=== PATIENT | female | born 1950 | race Caucasian/White ===

== ENCOUNTER → 2016-12-05 09:39 | Outpatient (CLI) | payer MEDICARE ==
[~2016-12-05 09:39] MED LIST: ACETAMINOPHEN325 MG NG; AMBIEN5 MG PO; BACTRIM DS TABL1 TAB PO; BOUDREAUXS113 GM TOPICAL; BUMEX2 MG PO; CELEXA20 MG PO; CORDARONE200 MG PO; COUMADIN3 MG PO; DEMEROL50 MG PO; IPRAT-ALBUT 0.5-3 ML UPD; K-DUR20 MEQ PO; LASIX20 MG PO; MEGACE40 MG PO; MICONAZOLE NITR28 GM TP; MYLANTA / MAALO30 ML PO; NITRO-BID60 GM TP; NOVOLOG100 U/M1 SQ; PEPCID40 MG PO; PROTONIX40 MG PO; REGLAN5 MG PO; ZOFRAN4 MG PO
== END | disposition home or self-care (01) ==
LOC: D.MRI 09:39
DX: M54.5 Low back pain (principal)

== ENCOUNTER → 2018-07-02 18:24 | Outpatient (CLI) | payer MEDICARE | END | disposition home or self-care (01) | LOC: D.MAMMO 16:00 | DX: Z12.31 Encounter for screening mammogram for malignant neoplasm of breast (principal) ==

== ENCOUNTER 2018-09-29 13:24 | Observation (INO) | payer MEDICARE ==
[~2018-09-29] VITALS: Ht 157.5 cm; Wt 105.2 kg
[2018-09-29 14:11] VITALS: BP 156/62; BMI 42.5
[2018-09-29] MEDS ORDERED: PROTONIX40 MG PO (14:11)
[2018-09-29 15:31] VITALS: BP 148/57
[2018-09-29 16:27] LABS: BASOPHILS 0.1 % (0-2); EOSINOPHILS 0.2 % (0-7); HEMATOCRIT 44.8 % (36.0-48.0); HEMOGLOBIN 14.5 g/dL (12-16); IMMATURE GRANULOCYTES 0.3 % (0-5); MCH 29.3 pg (26.0-34.0); MCHC 32.4 g/dL (31.0-37.0); MCV 90.5 fL (80.0-100.0); MEAN PLATELET VOLUME 10.8 fL (7.4-10.4); MONOCYTES 2.5 % (2-11); NEUTROPHILS 91.9 % (40-80); PLATELET COUNT 188 10x3/uL (130-400); RBC 4.95 10x6/uL (4.00-5.40); RDW 16.7 % (11.5-14.5); WBC 11.1 10x3/uL (4.8-10.8)
[2018-09-29 16:40] LABS: INR 1.67 (0.85-1.17); PROTIME 19.1 SECONDS (11.6-15.0)
[2018-09-29 16:41] LABS: D-DIMER-QUANTITATIVE < 0.27 ug/mLFEU (0.20-0.54)
[2018-09-29 16:50] LABS: ALBUMIN 3.3 g/dL (3.4-5.0); ANION GAP 18.9 mmol/L (8-16); BILIRUBIN - TOTAL 0.53 mg/dL (0.2-1.3); CALCIUM 8.9 mg/dL (8.5-10.1); CARBON DIOXIDE 21.9 mmol/L (21.0-32.0); PROTEIN - SERUM 8.1 g/dL (6.4-8.2)
[2018-09-29 16:51] LABS: POTASSIUM - SERUM 2.8 mmol/L (3.5-5.1)
[2018-09-29 21:34] VITALS: BP 151/80
[2018-09-30 03:48] VITALS: BP 117/51
[2018-09-30 06:27] VITALS: BP 125/63
[2018-09-30 07:10] LABS: BASOPHILS 0.1 % (0-2); EOSINOPHILS 1.1 % (0-7); HEMATOCRIT 40.6 % (36.0-48.0); HEMOGLOBIN 12.8 g/dL (12-16); IMMATURE GRANULOCYTES 0.3 % (0-5); LYMPHOCYTES 3.8 % (15-50); MCH 28.8 pg (26.0-34.0); MCHC 31.5 g/dL (31.0-37.0); MCV 91.2 fL (80.0-100.0); MEAN PLATELET VOLUME 10.4 fL (7.4-10.4); MONOCYTES 9.9 % (2-11); NEUTROPHILS 84.8 % (40-80); PLATELET COUNT 185 10x3/uL (130-400); RBC 4.45 10x6/uL (4.00-5.40); RDW 17.2 % (11.5-14.5)
[2018-09-30 07:11] LABS: WBC 7.5 10x3/uL (4.8-10.8)
[2018-09-30 07:31] LABS: ANION GAP 17.2 mmol/L (8-16); CALCIUM 8.1 mg/dL (8.5-10.1); CARBON DIOXIDE 19.8 mmol/L (21.0-32.0); CREATININE - SERUM 1.1 mg/dL (0.6-1.3)
[2018-09-30 07:38] VITALS: BP 97/45
[2018-09-30] MEDS ORDERED: SYNTHROID25 MCG PO (10:18)
[2018-09-30 11:23] VITALS: BP 111/57
[2018-09-30 12:08] VITALS: Ht 157.5 cm; Wt 105.2 kg
[2018-09-30 15:30] VITALS: BP 147/79
[2018-09-30] MEDS ORDERED: CELEXA20 MG PO (15:44)
[2018-09-30] MEDS ORDERED: K-DUR20 MEQ PO (15:44)
[2018-09-30] MEDS ORDERED: JARDIANCE25 MG PO (15:45)
[2018-09-30 17:29] LABS: APPEARANCE HAZY (CLEAR); COLOR YELLOW (YELLOW); SPECIFIC GRAVITY 1.025 (1.005-1.020)
[2018-09-30 17:30] LABS: BILIRUBIN NEGATIVE (NEGATIVE); GLUCOSE NEGATIVE (NEGATIVE); KETONE NEGATIVE (NEGATIVE); NITRITE NEGATIVE (NEGATIVE); PROTEIN NEGATIVE (NEGATIVE); UROBILINOGEN NORMAL (NORMAL)
[2018-09-30 17:32] LABS: BACTERIA FEW /hpf (NONE SEEN); EPITHELIAL CELLS 0-5 /hpf (0-5); WHITE CELLS - URINE 0-5 /hpf (0-5)
[2018-09-30 17:33] LABS: YEAST <1+ /hpf (NONE SEEN)
[2018-09-30 20:00] VITALS: BP 151/58
[2018-10-01] VITALS: BP 172/69
[2018-10-01 04:00] VITALS: BP 143/80
[2018-10-01 05:27] LABS: BASOPHILS 0.2 % (0-2); EOSINOPHILS 4.7 % (0-7); HEMATOCRIT 41.5 % (36.0-48.0); HEMOGLOBIN 12.7 g/dL (12-16); IMMATURE GRANULOCYTES 0.2 % (0-5); LYMPHOCYTES 17.4 % (15-50); MCH 28.7 pg (26.0-34.0); MCHC 30.6 g/dL (31.0-37.0); MEAN PLATELET VOLUME 10.1 fL (7.4-10.4); MONOCYTES 17.4 % (2-11); NEUTROPHILS 60.1 % (40-80); PLATELET COUNT 149 10x3/uL (130-400); RBC 4.42 10x6/uL (4.00-5.40); RDW 17.5 % (11.5-14.5)
[2018-10-01 05:35] LABS: ANION GAP 15.5 mmol/L (8-16); CALCIUM 8.2 mg/dL (8.5-10.1); CARBON DIOXIDE 18.9 mmol/L (21.0-32.0); CREATININE - SERUM 0.9 mg/dL (0.6-1.3); POTASSIUM - SERUM 3.4 mmol/L (3.5-5.1)
[2018-10-01 05:40] LABS: MCV 93.9 fL (80.0-100.0); WBC 4.7 10x3/uL (4.8-10.8)
[2018-10-01 05:53] LABS: INR 1.52 (0.85-1.17); PROTIME 17.7 SECONDS (11.6-15.0)
[2018-10-01 12:16] VITALS: BP 151/77
[2018-10-01 16:18] VITALS: BP 158/75
[2018-10-01 20:00] VITALS: BP 135/56
[2018-10-02] VITALS: BP 168/82
[2018-10-02 04:00] VITALS: BP 165/73
[2018-10-02 06:16] LABS: BASOPHILS 0.1 % (0-2); EOSINOPHILS 2.3 % (0-7); HEMOGLOBIN 12.1 g/dL (12-16); IMMATURE GRANULOCYTES 0.3 % (0-5); LYMPHOCYTES 9.4 % (15-50); MCH 28.4 pg (26.0-34.0); MONOCYTES 6.5 % (2-11); NEUTROPHILS 81.4 % (40-80); PLATELET COUNT 159 10x3/uL (130-400); RBC 4.26 10x6/uL (4.00-5.40); RDW 17.3 % (11.5-14.5)
[2018-10-02 06:19] LABS: MCV 91.5 fL (80.0-100.0); WBC 7.3 10x3/uL (4.8-10.8)
[2018-10-02 06:24] LABS: ANION GAP 16.4 mmol/L (8-16); CALCIUM 8.1 mg/dL (8.5-10.1); CARBON DIOXIDE 17.1 mmol/L (21.0-32.0); CREATININE - SERUM 0.9 mg/dL (0.6-1.3); POTASSIUM - SERUM 3.5 mmol/L (3.5-5.1)
[2018-10-02 09:17] VITALS: BP 167/77
[2018-10-02] MEDS ORDERED: PROTONIX40 MG PO (11:38)
[2018-10-02] MEDS ORDERED: CARAFATE1 G PO (11:38)
== END 2018-10-02 15:34 | disposition home or self-care (01) ==
LOC: OBSVTIME 13:24 → D.M3 13:24
PROVIDERS: Emergency Medicine; Internal Medicine Gastroenterology; Internal Medicine Nephrology
DX: K31.7 Polyp of stomach and duodenum (principal); D62 Acute posthemorrhagic anemia; E87.6 Hypokalemia; N20.0 Calculus of kidney; I10 Essential (primary) hypertension; E11.9 Type 2 diabetes mellitus without complications; Z86.718 Personal history of other venous thrombosis and embolism; Z85.038 Personal history of other malignant neoplasm of large intestine; Z86.711 Personal history of pulmonary embolism; Z79.01 Long term (current) use of anticoagulants

== ENCOUNTER → 2018-10-27 16:34 | Outpatient (CLI) | payer MEDICARE ==
[2018-09-30 12:08] VITALS: BMI 42.4
[~2018-10-27 16:34] MED LIST changes: +AMOXICILLIN500 M1 PO; +CARAFATE1 G PO; +FLORAJEN3 CAPS460 MG PO; +HYDROCODON-ACE1 EAC7 PO; +JARDIANCE25 MG PO; +LEVAQUIN750 MG PO; +LOPERAMIDE HCL2 MG PO; +NORVASC5 MG PO; +QUESTRAN LIG1 PACKET PO; +REGLAN10 MG PO; +SYNTHROID25 MCG PO
[2018-11-01 16:09] LABS: OVA + PARASITE EXAM Final report (())
== END | disposition home or self-care (01) ==
LOC: D.LABREF 16:34
PROVIDERS: Internal Medicine Gastroenterology
DX: R10.9 Unspecified abdominal pain (principal); R19.7 Diarrhea, unspecified

== ENCOUNTER 2018-10-31 10:54 | Inpatient (IN) | payer MEDICARE ==
[~2018-10-31] VITALS: Ht 157.5 cm; Wt 109.8 kg
[~2018-10-31 10:54] MED LIST changes: -AMOXICILLIN500 M1 PO; -FLORAJEN3 CAPS460 MG PO; -HYDROCODON-ACE1 EAC7 PO; -LEVAQUIN750 MG PO; -LOPERAMIDE HCL2 MG PO; -NORVASC5 MG PO; -QUESTRAN LIG1 PACKET PO; -REGLAN10 MG PO
[2018-10-31 11:44] LABS: BASOPHILS 0.1 % (0-2); EOSINOPHILS 0.1 % (0-7); HEMATOCRIT 43.3 % (36.0-48.0); HEMOGLOBIN 14.3 g/dL (12-16); IMMATURE GRANULOCYTES 0.3 % (0-5); LYMPHOCYTES 5.4 % (15-50); MCH 29.2 pg (26.0-34.0); MCV 88.5 fL (80.0-100.0); MONOCYTES 4.7 % (2-11); NEUTROPHILS 89.4 % (40-80); RBC 4.89 10x6/uL (4.00-5.40); RDW 16.4 % (11.5-14.5)
[2018-10-31 11:47] LABS: PLATELET COUNT 269 10x3/uL (130-400)
[2018-10-31 11:56] LABS: ALBUMIN 3.2 g/dL (3.4-5.0); ALKALINE PHOSPHATASE 87 U/L (46-116); ALT (SGPT) 24 U/L (10-68); AMYLASE - SERUM 37 U/L (25-115); BILIRUBIN - TOTAL 0.68 mg/dL (0.2-1.3); CALCIUM 9.2 mg/dL (8.5-10.1); CARBON DIOXIDE 22.9 mmol/L (21.0-32.0); CHLORIDE - SERUM 98 mmol/L (98-107); CREATININE - SERUM 1.4 mg/dL (0.6-1.3); LIPASE 173 U/L (73-393); PROTEIN - SERUM 8.4 g/dL (6.4-8.2); SODIUM 139 mmol/L (136-145); TROPONIN-I < 0.017 ng/mL (0.000-0.060); UREA NITROGEN 13 mg/dL (7-18); eGFR NON AFRICAN AMERICAN 39 mL/min (90-120)
[2018-10-31 11:58] LABS: CALC OSMOLALITY 283 mosm/kg (275-300); GLUCOSE 207 mg/dL (74-106)
[2018-10-31 12:02] LABS: POTASSIUM - SERUM 2.1 mmol/L (3.5-5.1)
[2018-10-31 13:00] VITALS: BP 124/68
--- NOTE | 2018-10-31 13:12 | NUR ---
S KAEL STOPPED AFTER 700CC PER ARNULFO COMACHO, NS WITH 40MEQ KCL STARTED AT 200 PER HOUR.
[2018-10-31 14:00] VITALS: BP 128/77
--- NOTE | 2018-10-31 14:50 | MORECARE ---
CASE MANAGEMENT DISCHARGE SUMMARY PATIENT: JEANETH JUDGE UNIT: [id number] ADM DATE: 10/31/18 AGE: 68 : 48 SEX: F ROOM/BED: D.E10 AUTHOR: RAJAT MONDRAGON PHYSICIAN: REFERRING PHYSICIAN: MEHRDAD CHATTERJEE MD DATE OF SERVICE: 10/31/18 Discharge Plan Patient Name: JEANETH JUDGE Facility: [facility]:[place] : 1950 Planned Disposition: Home Anticipated Discharge Date: 11/03/18 Discharge Date: Expected LOS: 3 Initial Reviewer: [email or web address] Initial Review Date: 10/31/2018 Generated: 10/31/18 3:50 pm DCPIA - Discharge Planning Initial Assessment Updated by [email or web address]: Becki Dee on 10/31/18 2:49 pm * Is the patient Alert and Oriented? Yes * How many steps to enter\exit or inside your home? None * PCP Dr. Hanson * Pharmacy [facility] * Preadmission Environment Home Alone * ADLs Independent * Equipment Walker * List name and contact numbers for known caregivers / representatives who currently or will assist patient after discharge: Ania Israel - daughter - [phone] Venus Russo - daughter - [phone] * Verbal permission to speak to the caregivers and representatives has been obtained from the patient. Yes * Community resources currently utilized None * Additional services required to return to the preadmission environment? No * Can the patient safely return to the preadmission environment? Yes * Has this patient been hospitalized within the prior 30 days at any hospital? Yes Patient Name: JEANETH JUDGE Page 07288 at 1450 All edits/amendments must be made on the electronic document DICTATION DATE: 10/31/18 145 MANAGER HIV: MAGI 10/31/18 1450 RPT#: [id number] DC DATE: STATUS: ADM IN [facility] [address] [place] [address] END OF REPORT
--- NOTE | 2018-10-31 14:59 | MORECARE ---
CASE MANAGEMENT DISCHARGE SUMMARY PATIENT: JEANETH JUDGE UNIT: [id number] ADM DATE: 10/31/18 AGE: 68 : 48 SEX: F ROOM/BED: D.E10 AUTHOR: ALANNA,DOC PHYSICIAN: REFERRING PHYSICIAN: MEHRDAD CHATTERJEE MD DATE OF SERVICE: 10/31/18 Discharge Plan Patient Name: JEANETH JUDGE Facility: [facility]:[place] : 1950 Planned Disposition: Home Anticipated Discharge Date: 11/03/18 Discharge Date: Expected LOS: 3 Initial Reviewer: [email or web address] Initial Review Date: 10/31/2018 Generated: 10/31/18 3:59 pm DCP- Discharge Planning Updated by [email or web address]: Becki Dee on 10/31/18 1:[address] Patient Name: JEANETH JUDGE Admission Status: ER Accout number: [id number] Admission Date: 10-31-2018 : 1950 Admission Diagnosis: Attending: MEHRDAD CHATTERJEE Current LOS: 1 Anticipated DC Date: 11-03-2018 Planned Disposition: Home Primary Insurance: [employer] CHOICE PPO M[employer] ADVANT Discharge Planning Comments: CM met with patient to complete initial dc planning assessment. CM educated patient on the CM role and verbal consent given by patient to complete assessment. Patient lives at home alone independently. At discharge patient plans to return home and feels this is a safe discharge. She reports she had two daughters that help her as needed. One of her daughters is a nurse. CM discussed availability of home health, rehab services, and medical equipment. Patient denied known discharge needs at this time. CM will continue to follow and will assist as needed with dc plans/needs. Welding Manager: Becki Dee RN, [facility] DCPIA - Discharge Planning Initial Assessment Updated by [email or web address]: Becki Dee on 10/31/18 2:49 pm * Is the patient Alert and Oriented? Yes * How many steps to enter\exit or inside your home? None * PCP Dr. Hanson * Pharmacy [facility] on [address] * Preadmission Environment Home Alone * ADLs Independent * Equipment Walker * List name and contact numbers for known caregivers / representatives who currently or will assist patient after discharge: Ania Israel - daughter - [phone] Venus Russo - daughter - [phone] * Verbal permission to speak to the caregivers and representatives has been obtained from the patient. Yes * Community resources currently utilized None * Additional services required to return to the preadmission environment? No * Can the patient safely return to the preadmission environment? Yes * Has this patient been hospitalized within the prior 30 days at any hospital? Yes Last DP export: 10/31/18 1:50 p Patient Name: JEANETH JUDGE Page 24107 at 1459 All edits/amendments must be made on the electronic document DICTATION DATE: 10/31/181458 TAFFY CANDY MAKER: MAGI 10/31/181458 RPT#: [id number] DC DATE: STATUS: ADM IN [facility] [address] [place] [address] END OF REPORT
[2018-10-31 15:00] VITALS: BP 125/73
[2018-10-31 15:06] LABS: APPEARANCE CLEAR (CLEAR); COLOR YELLOW (YELLOW)
[2018-10-31 15:07] LABS: BILIRUBIN NEGATIVE (NEGATIVE); GLUCOSE 1000 mg/dL (NEGATIVE); KETONE MODERATE mg/dL (NEGATIVE); NITRITE NEGATIVE (NEGATIVE); PROTEIN NEGATIVE (NEGATIVE); UROBILINOGEN NORMAL (NORMAL)
[2018-10-31 15:08] LABS: BACTERIA FEW /hpf (NONE SEEN); EPITHELIAL CELLS 0-5 /hpf (0-5); RED CELLS - URINE 0-5 /hpf (0-5); WHITE CELLS - URINE 0-5 /hpf (0-5); YEAST <1+ /hpf (NONE SEEN)
--- NOTE | 2018-10-31 15:58 | NUR ---
FLAGYL INFUSION COMPLETE AT 0731
[2018-10-31 18:10] VITALS: BP 148/70; BMI 44.4
--- NOTE | 2018-10-31 19:00 | NUR ---
PT IN BED IN LOW FOWLERS POSITION. ALERT AND ORIENTED X4. RESPIRATIONS EVEN AND UNLABORED. VITAL SIGNS STABLE AND AFEBRILE. NO VISUAL CUES OF DISTRESS NOTED. DENIES ANY OTHER NEEDS AT THIS TIME. BED LOW, SIDE RAILS UP X2. CALL LIGHT IN REACH. WILL CONTINUE TO MONITOR.
[2018-10-31 20:00] VITALS: BP 122/41
[2018-10-31 23:58] VITALS: BP 141/61
[2018-11-01 04:00] VITALS: BP 139/56
[2018-11-01 06:26] LABS: BASOPHILS 0.1 % (0-2); IMMATURE GRANULOCYTES 0.1 % (0-5); LYMPHOCYTES 12.5 % (15-50); MCH 28.5 pg (26.0-34.0); MCHC 31.8 g/dL (31.0-37.0); MCV 89.6 fL (80.0-100.0); MEAN PLATELET VOLUME 9.5 fL (7.4-10.4); MONOCYTES 11.2 % (2-11); NEUTROPHILS 75.1 % (40-80)
[2018-11-01 06:29] LABS: HEMATOCRIT 34.3 % (36.0-48.0); HEMOGLOBIN 10.9 g/dL (12-16); PLATELET COUNT 196 10x3/uL (130-400); RBC 3.83 10x6/uL (4.00-5.40); WBC 8.3 10x3/uL (4.8-10.8)
[2018-11-01 06:53] LABS: BILIRUBIN - TOTAL 0.3 mg/dL (0.2-1.3); CALCIUM 7.6 mg/dL (8.5-10.1); CARBON DIOXIDE 22.7 mmol/L (21.0-32.0); MAGNESIUM - SERUM 1.7 mg/dL (1.8-2.4)
[2018-11-01 06:57] LABS: CREATININE - SERUM 0.9 mg/dL (0.6-1.3)
[2018-11-01 06:58] LABS: ALBUMIN 2.2 g/dL (3.4-5.0); POTASSIUM - SERUM 2.7 mmol/L (3.5-5.1); PROTEIN - SERUM 5.9 g/dL (6.4-8.2)
--- NOTE | 2018-11-01 08:24 | NUR ---
PT ALERT X 4. BREATH SOUNDS CLEAR BILAT. PT REPORTING NAUSEA AND ABDOMINAL TENDERNESS. IV TO RIGHT HAND, PATENT, DRESSING CLEAN DRY AND INTACT. +1 EDEMA TO ALL EXTREMITIES. BED LOW, CALL LIGHT IN REACH, NO OTHER NEEDS AT THIS TIME.
[2018-11-01 08:30] VITALS: BP 176/76
[2018-11-01 11:03] VITALS: BMI 44.3
[2018-11-01 12:49] LABS: % SATURATION 13 % (15-55); IRON 32 ug/dl (35-150); TOTAL IRON BIND CAPACITY 238 ug/dl (260-445); UNSAT IRON BIND CAPACITY 206 ug/dl (150-375)
[2018-11-01 15:54] LABS: APPEARANCE HAZY (CLEAR); COLOR YELLOW (YELLOW); SPECIFIC GRAVITY 1.015 (1.005-1.020)
[2018-11-01 15:55] LABS: BILIRUBIN NEGATIVE (NEGATIVE); EPITHELIAL CELLS 0-5 /hpf (0-5); GLUCOSE 100 mg/dL (NEGATIVE); KETONE NEGATIVE (NEGATIVE); NITRITE NEGATIVE (NEGATIVE); PROTEIN TRACE mg/dL (NEGATIVE); RED CELLS - URINE 0-5 /hpf (0-5); UROBILINOGEN NORMAL (NORMAL); WHITE CELLS - URINE 0-5 /hpf (0-5)
--- NOTE | 2018-11-01 19:00 | NUR ---
PT IN BED IN LOW FOWLERS POSITION. ALERT AND ORIENTED X 4. RESPIRATIONS EVEN AND UNLABORED. RESPIRATIONS EVEN AND UNLABORED. NO VISUAL CUES OF DISTRESS NOTED. DENIES ANY OTHER NEEDS AT THIS TIME. BED LOW, SIDE RAILS UP X2 CALL LIGHT IN REACH. WILL CONTINUE TO MONITOR.
[2018-11-01 20:00] VITALS: BP 154/63
[2018-11-02] VITALS: BP 138/51
[2018-11-02 04:00] VITALS: BP 141/54; BP 178/77
--- NOTE | 2018-11-02 08:02 | NUR ---
PT ALERT X 4. BREATH SOUNDS CLEAR BILAT. PAIN OF 10/10, MEDICATED PER ORDERS, WILL MONITOR. +1 EDEMA TO BLE AND RIGHT HAND. IV TO RIGHT HAND, SALINE LOCKED. IV TO LEFT FOREARM, PATENT, DRESSING CLEAN DRY AND INTACT. BED LOW, CALL LIGHT IN REACH, NO OTHER NEEDS AT THIS TIME.
[2018-11-02 08:56] VITALS: BP 174/72
[2018-11-02 09:18] LABS: BASOPHILS 0.2 % (0-2); EOSINOPHILS 3.1 % (0-7); IMMATURE GRANULOCYTES 0.3 % (0-5); LYMPHOCYTES 13.4 % (15-50); MCH 28.6 pg (26.0-34.0); MCHC 31.4 g/dL (31.0-37.0); MCV 91.1 fL (80.0-100.0); MEAN PLATELET VOLUME 9.2 fL (7.4-10.4); MONOCYTES 8.5 % (2-11); NEUTROPHILS 74.5 % (40-80); PLATELET COUNT 200 10x3/uL (130-400); RBC 3.84 10x6/uL (4.00-5.40); RDW 17.4 % (11.5-14.5); WBC 6.5 10x3/uL (4.8-10.8)
[2018-11-02 09:40] LABS: ALBUMIN 2.3 g/dL (3.4-5.0); ALKALINE PHOSPHATASE 61 U/L (46-116); ALT (SGPT) 20 U/L (10-68); BILIRUBIN - TOTAL 0.25 mg/dL (0.2-1.3); CALC OSMOLALITY 283 mosm/kg (275-300); CALCIUM 7.9 mg/dL (8.5-10.1); CARBON DIOXIDE 22.6 mmol/L (21.0-32.0); CHLORIDE - SERUM 109 mmol/L (98-107); CREATININE - SERUM 0.7 mg/dL (0.6-1.3); GLUCOSE 133 mg/dL (74-106); POTASSIUM - SERUM 3.3 mmol/L (3.5-5.1); PROTEIN - SERUM 6.3 g/dL (6.4-8.2); SODIUM 143 mmol/L (136-145); UREA NITROGEN 5 mg/dL (7-18); eGFR NON AFRICAN AMERICAN 88 mL/min (90-120)
[2018-11-02 10:45] LABS: INR 4.93 (0.85-1.17)
[2018-11-02 20:46] VITALS: BP 158/58
[2018-11-03] VITALS: BP 127/64; BP 165/80
[2018-11-03 04:59] LABS: BASOPHILS 0.4 % (0-2); EOSINOPHILS 5.4 % (0-7); IMMATURE GRANULOCYTES 0.2 % (0-5); MCH 28.8 pg (26.0-34.0); MCHC 31.4 g/dL (31.0-37.0); MCV 91.6 fL (80.0-100.0); MEAN PLATELET VOLUME 9.5 fL (7.4-10.4); MONOCYTES 7.7 % (2-11); NEUTROPHILS 66.3 % (40-80); PLATELET COUNT 206 10x3/uL (130-400); RBC 3.82 10x6/uL (4.00-5.40); RDW 17.5 % (11.5-14.5); WBC 5.6 10x3/uL (4.8-10.8)
[2018-11-03 05:08] LABS: INR 4.47 (0.85-1.17); PROTIME 41.7 SECONDS (11.6-15.0)
[2018-11-03 05:10] LABS: ALBUMIN 2.3 g/dL (3.4-5.0); ALKALINE PHOSPHATASE 59 U/L (46-116); ALT (SGPT) 21 U/L (10-68); BILIRUBIN - TOTAL 0.28 mg/dL (0.2-1.3); CALC OSMOLALITY 280 mosm/kg (275-300); CARBON DIOXIDE 23.5 mmol/L (21.0-32.0); CHLORIDE - SERUM 109 mmol/L (98-107); CREATININE - SERUM 0.7 mg/dL (0.6-1.3); GLUCOSE 114 mg/dL (74-106); POTASSIUM - SERUM 3.5 mmol/L (3.5-5.1); PROTEIN - SERUM 6.3 g/dL (6.4-8.2); SODIUM 142 mmol/L (136-145); eGFR NON AFRICAN AMERICAN 88 mL/min (90-120)
[2018-11-03 05:19] LABS: MAGNESIUM - SERUM 1.9 mg/dL (1.8-2.4); UREA NITROGEN 3 mg/dL (7-18)
--- NOTE | 2018-11-03 07:15 | NUR ---
MORNING ASSESSMENT COMPLETE. SEE ASSESSMENT FLOWSHEET FOR FURTHER DETAILS. PT LYING IN BED AAO X3 TO PERSON, PLACE, AND TIME. STATES PAIN 5 (0-10)- WILL GIVE PAIN MED. BLE EDEMA NOTED. DENIES NEEDS AT THIS TIME. CL IN REACH.
[2018-11-03 08:30] VITALS: BP 162/82
[2018-11-03 11:52] VITALS: BP 167/70
--- NOTE | 2018-11-03 14:22 | NUR ---
RESITED PIV TO L HAND. PT TOLERATED WELL. SITE C/D/I; PATENT
[2018-11-03 16:29] VITALS: BP 167/87
--- NOTE | 2018-11-03 19:30 | NUR ---
Alert and orented able to voice needs and wants to staff. IV to left hand , no needs at this time, call light in reach.
[2018-11-03 20:00] VITALS: BP 164/67
--- NOTE | 2018-11-04 02:03 | NUR ---
UA collected via in out cath per protocol and sent to lab,
[2018-11-04 04:00] VITALS: BP 173/82
[2018-11-04 05:38] LABS: BASOPHILS 0.3 % (0-2); EOSINOPHILS 3.9 % (0-7); HEMATOCRIT 35.9 % (36.0-48.0); HEMOGLOBIN 11.4 g/dL (12-16); IMMATURE GRANULOCYTES 0.2 % (0-5); LYMPHOCYTES 18.5 % (15-50); MCH 28.8 pg (26.0-34.0); MCHC 31.8 g/dL (31.0-37.0); MCV 90.7 fL (80.0-100.0); MEAN PLATELET VOLUME 9.6 fL (7.4-10.4); MONOCYTES 7.8 % (2-11); NEUTROPHILS 69.3 % (40-80); RBC 3.96 10x6/uL (4.00-5.40); RDW 17.4 % (11.5-14.5); WBC 5.9 10x3/uL (4.8-10.8)
[2018-11-04 06:03] LABS: PLATELET COUNT 158 10x3/uL (130-400)
[2018-11-04 06:05] LABS: PROTIME 31.6 SECONDS (11.6-15.0)
[2018-11-04 06:06] LABS: ALBUMIN 2.3 g/dL (3.4-5.0); ALKALINE PHOSPHATASE 58 U/L (46-116); ALT (SGPT) 19 U/L (10-68); BILIRUBIN - TOTAL 0.28 mg/dL (0.2-1.3); CALC OSMOLALITY 280 mosm/kg (275-300); CALCIUM 8.2 mg/dL (8.5-10.1); CARBON DIOXIDE 22.7 mmol/L (21.0-32.0); CHLORIDE - SERUM 109 mmol/L (98-107); CREATININE - SERUM 0.6 mg/dL (0.6-1.3); GLUCOSE 101 mg/dL (74-106); INR 3.15 (0.85-1.17); POTASSIUM - SERUM 3.8 mmol/L (3.5-5.1); PROTEIN - SERUM 6.4 g/dL (6.4-8.2); SODIUM 143 mmol/L (136-145); eGFR NON AFRICAN AMERICAN > 90 mL/min (90-120)
[2018-11-04 06:08] LABS: UREA NITROGEN 2 mg/dL (7-18)
--- NOTE | 2018-11-04 07:15 | NUR ---
MORNING ASSESSMENT COMPLETE. SEE ASSESSMENT FLOWSHEET FOR FURTHER DETAILS. PT LYING IN BED AAO X3 TO PERSON, PLACE, AND TIME. GOING FOR OCTREOSCAN TODAY. BOWEL PREP WITH DULCOLAX LAST NIGHT. BLE EDEMA NOTED +2, L HAND PIV C/D/I; PATENT. PT DENIES PAIN AT THIS MOMENT. NO SIGNS OF DISTRESS NOTED. CL IN REACH.
[2018-11-04 08:16] LABS: FOLATE (FOLIC ACID) - SERUM >20.0 ng/mL (>3.0)
[2018-11-04 08:45] VITALS: BP 189/90
--- NOTE | 2018-11-04 10:57 | NUR ---
NUTRITION F//U PT REMAINS ON CLEAR LIQUID DIET. PROCALAMINE @ 30 CC/HR PROVIDING 176 KCAL, 22 GM PROTEIN PER DAY. PT MAY BENEFIT FROM INCREASED PROCALAMINE RATE FOR ADDITIONAL KCAL/PROTEIN. RD FOLLOWING
[2018-11-04 12:49] VITALS: BP 195/90
[2018-11-04 16:16] VITALS: BP 174/92
[2018-11-04 20:00] VITALS: BP 172/84
[2018-11-05] VITALS: BP 158/84
[2018-11-05 04:00] VITALS: BP 168/84
[2018-11-05 07:23] LABS: BASOPHILS 0.2 % (0-2); EOSINOPHILS 4.7 % (0-7); HEMATOCRIT 35.9 % (36.0-48.0); HEMOGLOBIN 11.3 g/dL (12-16); IMMATURE GRANULOCYTES 0.2 % (0-5); LYMPHOCYTES 13.9 % (15-50); MCH 28.5 pg (26.0-34.0); MCHC 31.5 g/dL (31.0-37.0); MCV 90.4 fL (80.0-100.0); MEAN PLATELET VOLUME 9.1 fL (7.4-10.4); MONOCYTES 9.8 % (2-11); NEUTROPHILS 71.2 % (40-80); RBC 3.97 10x6/uL (4.00-5.40); RDW 17.1 % (11.5-14.5); WBC 5.7 10x3/uL (4.8-10.8)
[2018-11-05 07:33] LABS: INR 2.52 (0.85-1.17); PROTIME 26.4 SECONDS (11.6-15.0)
[2018-11-05 07:40] LABS: ALBUMIN 2.3 g/dL (3.4-5.0); ALKALINE PHOSPHATASE 56 U/L (46-116); ALT (SGPT) 25 U/L (10-68); BILIRUBIN - TOTAL 0.32 mg/dL (0.2-1.3); CALC OSMOLALITY 282 mosm/kg (275-300); CALCIUM 7.9 mg/dL (8.5-10.1); CARBON DIOXIDE 27.9 mmol/L (21.0-32.0); CHLORIDE - SERUM 106 mmol/L (98-107); CREATININE - SERUM 0.7 mg/dL (0.6-1.3); GLUCOSE 123 mg/dL (74-106); POTASSIUM - SERUM 3.3 mmol/L (3.5-5.1); PROTEIN - SERUM 6.1 g/dL (6.4-8.2); SODIUM 143 mmol/L (136-145); UREA NITROGEN 3 mg/dL (7-18); eGFR NON AFRICAN AMERICAN 88 mL/min (90-120)
[2018-11-05 07:59] LABS: PLATELET COUNT 190 10x3/uL (130-400)
[2018-11-05 10:04] VITALS: BP 198/89
[2018-11-05 17:34] VITALS: BP 195/90
[2018-11-05 20:54] VITALS: BP 150/66
--- NOTE | 2018-11-06 00:01 | NUR ---
PT REPORTS BURNING AT IV SITE. NO REDNESS OR SWELLING NOTED, IMMEDIATE BLOOD RETURN AND FLUSHES WITHOUT ISSUE OR COMPLAINTS. PROCAL AND KCL DECREASED TO 20. PT STILL COMPLAINS OF PAIN AT SITE. SUGGESTED ANOTHER IV SITE FOR FLUIDS, PT REFUSED. STATES SHE ONLY WANTS ZOFRAN DRIP FOR NOW. WILL MISTI TO MONITOR.
[2018-11-06 00:59] VITALS: BP 143/62
--- NOTE | 2018-11-06 02:47 | NUR ---
PT LYING IN BED RESTING, NO SIGNS OF DISTRESS. CONCUR W/ SKATING RINK MANAGER ASSESSMENT. PT DENIES NEEDS. CL IN REACH
[2018-11-06 07:18] LABS: BASOPHILS 0.4 % (0-2); EOSINOPHILS 8.2 % (0-7); HEMOGLOBIN 12.6 g/dL (12-16); IMMATURE GRANULOCYTES 0.2 % (0-5); LYMPHOCYTES 21.8 % (15-50); MCH 28.9 pg (26.0-34.0); MCHC 31.5 g/dL (31.0-37.0); MCV 91.7 fL (80.0-100.0); MEAN PLATELET VOLUME 9.7 fL (7.4-10.4); MONOCYTES 9.1 % (2-11); NEUTROPHILS 60.3 % (40-80); PLATELET COUNT 202 10x3/uL (130-400); RBC 4.36 10x6/uL (4.00-5.40); RDW 17.2 % (11.5-14.5); WBC 5.7 10x3/uL (4.8-10.8)
--- NOTE | 2018-11-06 08:19 | NUR ---
SEWING MACHINE OPERATOR ZIPPER NOTE-PT UP IN BATHROOM AT PRESENT. STATES HAVING PAIN AND WANTS PAIN MED BUT IT IS NOT TIME. ZOFRAN RUNNING AT PRESENT BUT WILL NOT ALLOW HER MAINTANCE FLUIDS AND PROCALAMINE TO RUN. WILL NEED TO MOVE IV SITE. WILL CONTINUE TO MONITOR
[2018-11-06 08:49] VITALS: BP 198/81
[2018-11-06 10:41] LABS: ALKALINE PHOSPHATASE 67 U/L (46-116); ALT (SGPT) 30 U/L (10-68); CALC OSMOLALITY 283 mosm/kg (275-300); CALCIUM 8.2 mg/dL (8.5-10.1); CARBON DIOXIDE 28.6 mmol/L (21.0-32.0); CHLORIDE - SERUM 105 mmol/L (98-107); CREATININE - SERUM 0.7 mg/dL (0.6-1.3); GLUCOSE 95 mg/dL (74-106); SODIUM 144 mmol/L (136-145); UREA NITROGEN 4 mg/dL (7-18); eGFR NON AFRICAN AMERICAN 88 mL/min (90-120)
[2018-11-06 10:42] LABS: ALBUMIN 2.6 g/dL (3.4-5.0); PROTEIN - SERUM 6.5 g/dL (6.4-8.2)
[2018-11-06 15:58] VITALS: BP 155/74
[2018-11-06 18:35] VITALS: BP 159/81
[2018-11-06 19:10] LABS: OVA + PARASITE EXAM Final report (())
--- NOTE | 2018-11-06 22:40 | NUR ---
ENTER ROOM IN RESPONSE TO CL. PT STATES SHE JUST HAD AN EPISODE OF DIARRHEA IN HER SLEEP. STATES SHE ALREADY GOT RID OF THE TOP SHEET THAT WAS COVERED. ASSISTED PT WITH CLEANING UP AND GETTING CHANGED. SMALL AMOUNT OF BM LEAKED ON BEDDING. LINEN CHANGED. PT STATES THIS HAS NEVER HAD PROBLEMS WITH INCONTINENCE OF BOWELS, AND THAT SHE HAD, "HAD A LITTLE BIT OF DIARRHEA," EARLIER, BUT NOT NEAR THE AMOUNT THIS. PT DESCRIBES IT AT RUNNY WITH RED IN IT. INFORMED PT TO NOTIFY ME BEFORE IT IS THROWN AWAY NEXT TIME. VITAL SIGNS ARE ALL STILL STABLE, PT REPORTS ABDOMINAL PAIN.
[2018-11-07 00:03] VITALS: BP 150/69
--- NOTE | 2018-11-07 03:29 | NUR ---
RESTING IN BED RESP UNLABORED NO APPARENT DISTRESS CALL LIGHT IN REACH
[2018-11-07 07:50] LABS: ALBUMIN 2.3 g/dL (3.4-5.0); ALKALINE PHOSPHATASE 56 U/L (46-116); ALT (SGPT) 26 U/L (10-68); BILIRUBIN - TOTAL 0.42 mg/dL (0.2-1.3); CALCIUM 8.2 mg/dL (8.5-10.1); CARBON DIOXIDE 30.1 mmol/L (21.0-32.0); CHLORIDE - SERUM 104 mmol/L (98-107); CREATININE - SERUM 0.7 mg/dL (0.6-1.3); GLUCOSE 130 mg/dL (74-106); POTASSIUM - SERUM 3.4 mmol/L (3.5-5.1); PROTEIN - SERUM 6.1 g/dL (6.4-8.2); SODIUM 141 mmol/L (136-145); eGFR NON AFRICAN AMERICAN 88 mL/min (90-120)
[2018-11-07 07:51] LABS: BASOPHILS 0.2 % (0-2); EOSINOPHILS 7.7 % (0-7); HEMATOCRIT 35.7 % (36.0-48.0); IMMATURE GRANULOCYTES 0.3 % (0-5); LYMPHOCYTES 13.3 % (15-50); MCH 28.4 pg (26.0-34.0); MCHC 30.8 g/dL (31.0-37.0); MCV 92.2 fL (80.0-100.0); MEAN PLATELET VOLUME 9.8 fL (7.4-10.4); MONOCYTES 10.4 % (2-11); NEUTROPHILS 68.1 % (40-80); PLATELET COUNT 186 10x3/uL (130-400); RBC 3.87 10x6/uL (4.00-5.40); RDW 17.2 % (11.5-14.5); WBC 6.3 10x3/uL (4.8-10.8)
[2018-11-07 08:07] LABS: INR 1.65 (0.85-1.17); PROTIME 18.9 SECONDS (11.6-15.0)
[2018-11-07 08:14] LABS: CALC OSMOLALITY 280 mosm/kg (275-300); UREA NITROGEN 6 mg/dL (7-18)
[2018-11-07 08:37] VITALS: BP 181/82
[2018-11-07 10:21] LABS: 5HIAA - 24HR 2.2 mg/24 hr (0.0-14.9); 5HIAA - UR 2.8 mg/L (Undefined)
[2018-11-07 10:44] VITALS: Ht 157.5 cm; Wt 109.8 kg
--- NOTE | 2018-11-07 11:29 | NUR ---
Rehab Note- Acute Inpatient Rehab prescreen order received. The patient has [employer] insurance and would require a PreAuth. She has been signed off by PT and has a pending OT Eval. [employer] will deny the patient an inpatient acute rehab stay due to being too functional with PT. Thank you for this referral! Pippa Rahman RN Clincial Liaison, [facility] Rehab
[2018-11-07 12:27] VITALS: BP 170/80
[2018-11-07 16:32] VITALS: BP 141/55
[2018-11-07 20:00] VITALS: BP 155/67
[2018-11-08] VITALS: BP 171/63
[2018-11-08 04:00] VITALS: BP 165/55
[2018-11-08 05:31] LABS: BASOPHILS 0.2 % (0-2); EOSINOPHILS 6.2 % (0-7); HEMATOCRIT 36.3 % (36.0-48.0); HEMOGLOBIN 11.1 g/dL (12-16); IMMATURE GRANULOCYTES 0.2 % (0-5); LYMPHOCYTES 19.2 % (15-50); MCHC 30.6 g/dL (31.0-37.0); MCV 91.4 fL (80.0-100.0); MEAN PLATELET VOLUME 9.5 fL (7.4-10.4); MONOCYTES 11.5 % (2-11); NEUTROPHILS 62.7 % (40-80); PLATELET COUNT 195 10x3/uL (130-400); RBC 3.97 10x6/uL (4.00-5.40); RDW 17.2 % (11.5-14.5); WBC 5.5 10x3/uL (4.8-10.8)
[2018-11-08 05:53] LABS: ALBUMIN 2.4 g/dL (3.4-5.0); ALKALINE PHOSPHATASE 56 U/L (46-116); ALT (SGPT) 26 U/L (10-68); BILIRUBIN - TOTAL 0.47 mg/dL (0.2-1.3); CALC OSMOLALITY 278 mosm/kg (275-300); CALCIUM 8.3 mg/dL (8.5-10.1); CHLORIDE - SERUM 106 mmol/L (98-107); CREATININE - SERUM 0.7 mg/dL (0.6-1.3); GLUCOSE 94 mg/dL (74-106); POTASSIUM - SERUM 3.6 mmol/L (3.5-5.1); PROTEIN - SERUM 6.1 g/dL (6.4-8.2); SODIUM 141 mmol/L (136-145); UREA NITROGEN 6 mg/dL (7-18); eGFR NON AFRICAN AMERICAN 88 mL/min (90-120)
--- NOTE | 2018-11-08 05:53 | NUR ---
PT IN BED IN LOW FOWLERS POSITION RESTING QUIETLY WITH EYES CLOSED. ALERT AND ORIENTED X4. VITAL SIGNS STABLE AND AFEBRILE. NO VISUAL CUES OF DISTRESS NOTED. DENIES ANY OTHER NEEDS AT THIS TIME. BED LOW, SIDE RAILS UP X2. CALL LIGHT IN REACH WILL CONTINUE TO MONITOR.
[2018-11-08 06:11] LABS: INR 1.34 (0.85-1.17)
--- NOTE | 2018-11-08 07:15 | NUR ---
MORNING ASSESSMENT COMPLETE. SEE ASSESSMENT FLOWSHEET FOR FURTHER DETAILS. PT LYING IN BED AAO X4 TO PERSON, PLACE, TIME AND SITUATION. GOING IN FOR GASTRIC EMPTYING TEST TODAY. R SHOULDER PIV- C/D/I AND PATENT. DENIES NEEDS AT THIS TIME. CL IN REACH.
[2018-11-08 08:05] VITALS: BP 181/89
[2018-11-08 16:00] VITALS: BP 131/67
--- NOTE | 2018-11-08 19:35 | NUR ---
PATIENT RESTING IN BED AND REQUESTED PAIN MEDS FOR 10/10 PAIN. NO S/S OF DISTRESS. WILL ADMINISTER MEDS AND CONTINUE TO MONITOR.
[2018-11-08 20:41] VITALS: BP 146/98
[2018-11-09 00:40] VITALS: BP 137/89
--- NOTE | 2018-11-09 01:52 | NUR ---
PATIENT RESTING IN BED WITH EYES CLOSED AND NO S/S OF DISTRESS. WILL CONTINUE TO MONITOR.
[2018-11-09 05:01] VITALS: BP 136/46
[2018-11-09 05:28] LABS: BASOPHILS 0.2 % (0-2); EOSINOPHILS 6.2 % (0-7); HEMATOCRIT 36.9 % (36.0-48.0); HEMOGLOBIN 11.5 g/dL (12-16); IMMATURE GRANULOCYTES 0.2 % (0-5); LYMPHOCYTES 19.4 % (15-50); MCH 28.5 pg (26.0-34.0); MCHC 31.2 g/dL (31.0-37.0); MCV 91.6 fL (80.0-100.0); MEAN PLATELET VOLUME 9.5 fL (7.4-10.4); MONOCYTES 11.1 % (2-11); NEUTROPHILS 62.9 % (40-80); PLATELET COUNT 175 10x3/uL (130-400); RBC 4.03 10x6/uL (4.00-5.40); RDW 17.3 % (11.5-14.5); WBC 5.3 10x3/uL (4.8-10.8)
[2018-11-09 05:42] LABS: ALBUMIN 2.4 g/dL (3.4-5.0); ALKALINE PHOSPHATASE 57 U/L (46-116); ALT (SGPT) 31 U/L (10-68); BILIRUBIN - TOTAL 0.47 mg/dL (0.2-1.3); CALC OSMOLALITY 278 mosm/kg (275-300); CALCIUM 8.1 mg/dL (8.5-10.1); CARBON DIOXIDE 30.5 mmol/L (21.0-32.0); CHLORIDE - SERUM 104 mmol/L (98-107); CREATININE - SERUM 0.7 mg/dL (0.6-1.3); GLUCOSE 98 mg/dL (74-106); POTASSIUM - SERUM 3.8 mmol/L (3.5-5.1); PROTEIN - SERUM 6.3 g/dL (6.4-8.2); SODIUM 141 mmol/L (136-145); UREA NITROGEN 6 mg/dL (7-18); eGFR NON AFRICAN AMERICAN 88 mL/min (90-120)
--- NOTE | 2018-11-09 07:15 | NUR ---
MORNING ASSESSMENT COMPLETE. SEE ASSESSMENT FLOWSHEET FOR FURTHER DETAILS. PT LYING IN BED AAO X4 TO PERSON, PLACE, TIME AND SITUATION. ABD PAIN NOTED- ON ZOFRAN AND DILAUDID. DENIES FURTHER NEEDS AT THIS TIME. CL IN REACH.
[2018-11-09 08:46] VITALS: BP 149/72
[2018-11-09] MEDS ORDERED: LEVAQUIN750 MG PO (13:52)
[2018-11-09] MEDS ORDERED: NORVASC5 MG PO (13:52)
[2018-11-09] MEDS ORDERED: AMOXICILLIN500 M1 PO (13:52)
[2018-11-09] MEDS ORDERED: QUESTRAN LIG1 PACKET PO (13:52)
[2018-11-09] MEDS ORDERED: FLORAJEN3 CAPS460 MG PO (13:53)
[2018-11-09] MEDS ORDERED: HYDROCODON-ACE1 EAC7 PO (13:54)
[2018-11-09] MEDS ORDERED: REGLAN10 MG PO (13:54)
[2018-11-09] MEDS ORDERED: LOPERAMIDE HCL2 MG PO (13:54)
[2018-11-09 16:00] VITALS: BP 144/49
--- NOTE | 2018-11-11 12:23 | MORECARE ---
CASE MANAGEMENT DISCHARGE SUMMARY PATIENT: JEANETH JUDGE UNIT: [id number] ADM DATE: 10/31/18 AGE: 68 : 48 SEX: F ROOM/BED: D.2202 AUTHOR: ALANNA,DOC PHYSICIAN: REFERRING PHYSICIAN: MEHRDAD CHATTERJEE MD DATE OF SERVICE: 11/11/18 Discharge Plan Patient Name: JEANETH JUDGE Facility: [facility]:[place] : 1950 Planned Disposition: Home Anticipated Discharge Date: 11/03/18 Discharge Date: 11/09/2018 Expected LOS: 3 Initial Reviewer: [email or web address] Initial Review Date: 10/31/2018 Generated: 11/11/18 1:23 pm DCP- Discharge Planning Updated by [email or web address]: Becki Dee on 10/31/18 1:[address] Patient Name: JEANETH JUDGE Admission Status: ER Accout number: [id number] Admission Date: 10-31-2018 : 1950 Admission Diagnosis: Attending: MEHRDAD CHATTERJEE Current LOS: 1 Anticipated DC Date: 11-03-2018 Planned Disposition: Home Primary Insurance: [employer] CHOICE PPO MCR ADVANT Discharge Planning Comments: CM met with patient to complete initial dc planning assessment. CM educated patient on the CM role and verbal consent given by patient to complete assessment. Patient lives at home alone independently. At discharge patient plans to return home and feels this is a safe discharge. She reports she had two daughters that help her as needed. One of her daughters is a nurse. CM discussed availability of home health, rehab services, and medical equipment. Patient denied known discharge needs at this time. CM will continue to follow and will assist as needed with dc plans/needs. Court Reporter: Becki Dee RN, [facility] DCPIA - Discharge Planning Initial Assessment Updated by [email or web address]: Becki Dee on 10/31/18 2:49 pm * Is the patient Alert and Oriented? Yes * How many steps to enter\exit or inside your home? None * PCP Dr. Hanson * Pharmacy [facility] on [address] * Preadmission Environment Home Alone * ADLs Independent * Equipment Walker * List name and contact numbers for known caregivers / representatives who currently or will assist patient after discharge: Ania Israel - daughter - [phone] Venus Russo - daughter - [phone] * Verbal permission to speak to the caregivers and representatives has been obtained from the patient. Yes * Community resources currently utilized None * Additional services required to return to the preadmission environment? No * Can the patient safely return to the preadmission environment? Yes * Has this patient been hospitalized within the prior 30 days at any hospital? Yes Last DP export: 10/31/18 1:59 p Patient Name: JEANETH JUDGE Page 11827 at 1223 All edits/amendments must be made on the electronic document DICTATION DATE: 11/11/18 1223 COPPER ETCHER: MAGI 11/11/18 1223 RPT#: [id number] DC DATE:11/09/18 STATUS: DIS IN [facility] [address] [place] [address] END OF REPORT
== END 2018-11-09 17:58 | disposition home or self-care (01) | DRG 74 ==
LOC: D.ER 10:54 → D.MS 13:55 → D.EDHOLD 13:55 → D.MS 15:27
PROVIDERS: Family Medicine; Internal Medicine Gastroenterology; ADMIT Internal Medicine Nephrology
DX: E11.43 Type 2 diabetes mellitus with diabetic autonomic (poly)neuropathy (principal); N39.0 Urinary tract infection, site not specified; I27.82 Chronic pulmonary embolism; K31.84 Gastroparesis; R11.2 Nausea with vomiting, unspecified; E87.6 Hypokalemia; K21.9 Gastro-esophageal reflux disease without esophagitis; N20.0 Calculus of kidney

== ENCOUNTER 2019-05-16 13:42 | Emergency (ER) | payer MEDICARE ==
[~2019-05-16] VITALS: Ht 157.5 cm; Wt 82.3 kg
[~2019-05-16 13:42] MED LIST changes: +AMOXICILLIN500 M1 PO; +FLORAJEN3 CAPS460 MG PO; +HYDROCODON-ACE1 EAC7 PO; +LEVAQUIN750 MG PO; +LOPERAMIDE HCL2 MG PO; +NORVASC5 MG PO; +QUESTRAN LIG1 PACKET PO; +REGLAN10 MG PO
[2019-05-16 13:43] VITALS: Ht 157.5 cm; Wt 82.3 kg
[2019-05-16 14:05] LABS: BASOPHILS 0.3 % (0-2); EOSINOPHILS 0.8 % (0-7); HEMATOCRIT 42.9 % (36.0-48.0); HEMOGLOBIN 14.4 g/dL (12-16); IMMATURE GRANULOCYTES 0.2 % (0-5); LYMPHOCYTES 11.7 % (15-50); MCH 31.4 pg (26.0-34.0); MCHC 33.6 g/dL (31.0-37.0); MCV 93.7 fL (80.0-100.0); MEAN PLATELET VOLUME 9.8 fL (7.4-10.4); PLATELET COUNT 151 10x3/uL (130-400); RBC 4.58 10x6/uL (4.00-5.40); RDW 16.5 % (11.5-14.5); WBC 6.4 10x3/uL (4.8-10.8)
[2019-05-16 14:21] LABS: ALBUMIN 3.6 g/dL (3.4-5.0); ANION GAP 18.1 mmol/L (8-16); BILIRUBIN - TOTAL 0.43 mg/dL (0.2-1.3); CALCIUM 8.7 mg/dL (8.5-10.1); CARBON DIOXIDE 22.9 mmol/L (21.0-32.0); CREATININE - SERUM 1.6 mg/dL (0.6-1.3); PROTEIN - SERUM 7.9 g/dL (6.4-8.2)
[2019-05-16 14:24] LABS: HELICOBACTER PYLORI IGG NEGATIVE (NEGATIVE)
[2019-05-16] MEDS ORDERED: ZOFRAN ODT4 MG/UDTAB PO (15:04)
[2019-05-16] MEDS ORDERED: PROTONIX40 MG PO (15:04)
[2019-05-16 15:46] LABS: APPEARANCE CLEAR (CLEAR); BILIRUBIN NEGATIVE (NEGATIVE); COLOR YELLOW (YELLOW); GLUCOSE NEGATIVE (NEGATIVE); KETONE NEGATIVE (NEGATIVE); NITRITE NEGATIVE (NEGATIVE); PROTEIN NEGATIVE (NEGATIVE); UROBILINOGEN NORMAL (NORMAL)
[2019-05-16 15:52] LABS: BACTERIA FEW /hpf (NONE SEEN); EPITHELIAL CELLS 0-5 /hpf (0-5); HYALINE CAST 0-5 /lpf (NONE SEEN); WHITE CELLS - URINE 0-5 /hpf (0-5)
[2019-05-16 16:50] VITALS: BP 123/73
== END 2019-05-16 16:50 | disposition home or self-care (01) ==
LOC: D.ER 13:42
PROVIDERS: Emergency Medicine
DX: K31.84 Gastroparesis (principal)

== ENCOUNTER 2019-05-18 08:38 | Inpatient (IN) | payer MEDICARE ==
[~2019-05-18] VITALS: Ht 157.5 cm; Wt 82.1 kg
[~2019-05-18 08:38] MED LIST changes: +ZOFRAN ODT4 MG/UDTAB PO
[2019-05-18 09:12] LABS: BASOPHILS 0.3 % (0-2); HEMATOCRIT 43.2 % (36.0-48.0); HEMOGLOBIN 14.5 g/dL (12-16); IMMATURE GRANULOCYTES 0.1 % (0-5); LYMPHOCYTES 17.9 % (15-50); MCH 31.3 pg (26.0-34.0); MCHC 33.6 g/dL (31.0-37.0); MCV 93.3 fL (80.0-100.0); MEAN PLATELET VOLUME 10.2 fL (7.4-10.4); MONOCYTES 12.3 % (2-11); NEUTROPHILS 68.4 % (40-80); PLATELET COUNT 172 10x3/uL (130-400); RBC 4.63 10x6/uL (4.00-5.40); RDW 16.6 % (11.5-14.5); WBC 6.8 10x3/uL (4.8-10.8)
[2019-05-18 09:25] LABS: ALBUMIN 3.8 g/dL (3.4-5.0); ALKALINE PHOSPHATASE 80 U/L (46-116); ALT (SGPT) 25 U/L (10-68); BILIRUBIN - TOTAL 0.48 mg/dL (0.2-1.3); CALC OSMOLALITY 281 mosm/kg (275-300); CARBON DIOXIDE 20.2 mmol/L (21.0-32.0); CHLORIDE - SERUM 102 mmol/L (98-107); CREATININE - SERUM 1.6 mg/dL (0.6-1.3); GLUCOSE 122 mg/dL (74-106); POTASSIUM - SERUM 3.7 mmol/L (3.5-5.1); PROTEIN - SERUM 8.2 g/dL (6.4-8.2); SODIUM 139 mmol/L (136-145); UREA NITROGEN 20 mg/dL (7-18); eGFR NON AFRICAN AMERICAN 34 mL/min (90-120)
[2019-05-18 09:27] LABS: AMYLASE - SERUM 40 U/L (25-115); LIPASE 117 U/L (73-393)
[2019-05-18 09:28] LABS: TROPONIN-I < 0.017 ng/mL (0.000-0.060)
[2019-05-18 10:14] LABS: APPEARANCE CLEAR (CLEAR); COLOR YELLOW (YELLOW)
[2019-05-18 10:15] LABS: BILIRUBIN NEGATIVE (NEGATIVE); GLUCOSE NEGATIVE (NEGATIVE); KETONE MODERATE mg/dL (NEGATIVE); NITRITE NEGATIVE (NEGATIVE); PROTEIN NEGATIVE (NEGATIVE); RED CELLS - URINE RARE /hpf (0-5); SPECIFIC GRAVITY 1.015 (1.005-1.020); UROBILINOGEN NORMAL (NORMAL); WHITE CELLS - URINE OCC /hpf (0-5)
[2019-05-18 10:16] LABS: BACTERIA FEW /hpf (NONE SEEN); EPITHELIAL CELLS OCC /hpf (0-5); HYALINE CAST OCC /lpf (NONE SEEN); MUCUS <1+ /lpf (NONE SEEN)
--- NOTE | 2019-05-18 10:53 | NUR ---
RECEIVED PT TO ROOM 1207 VIA STRETCHER, PT WAS ABLE TO WALK FROM STRETCHER TO BED, WITH STAND BY ASSIST, PT C/O PAIN LEVEL OF 9/10 TO ABD, C/O OF NAUSEA, ON ZOFRAN DRIP AND NS TO RT FA. PT ACCOMPANIED BY DAUGHTER. WILL ASSESS PT AND START PLAN OF CARE.
[2019-05-18] MEDS ORDERED: PHENERGAN25 M1 PO (10:58)
[2019-05-18 11:24] VITALS: BP 135/75; BMI 33.2
--- NOTE | 2019-05-18 11:49 | MORECARE ---
CASE MANAGEMENT DISCHARGE SUMMARY PATIENT: JEANETH JUDGE UNIT: [id number] ADM DATE: 05/18/19 AGE: 68 : 48 SEX: F ROOM/BED: D.1207 AUTHOR: RAJAT MONDRAGON PHYSICIAN: REFERRING PHYSICIAN: JEISON PETTIT MD DATE OF SERVICE: 05/18/19 Discharge Plan Patient Name: JEANETH JUDGE Facility: [facility]:[place] : 1950 Planned Disposition: Home Anticipated Discharge Date: 05/20/19 Discharge Date: Expected LOS: 2 Initial Reviewer: [email or web address] Initial Review Date: 05/18/2019 Generated: 05/18/19 12:49 pm Patient Name: JEANETH JUDGE Page 51234 at 1149 All edits/amendments must be made on the electronic document DICTATION DATE: 05/18/19 1149 SHIP SCALER: MAGI 05/18/19 1149 RPT#: [id number] DC DATE: STATUS: ADM IN [facility] [address] [place] [address] END OF REPORT
--- NOTE | 2019-05-18 11:56 | MORECARE ---
CASE MANAGEMENT DISCHARGE SUMMARY PATIENT: JEANETH LOPES UNIT: [id number] ADM DATE: 05/18/19 AGE: 68 : 48 SEX: F ROOM/BED: D.1207 AUTHOR: RAJAT MONDRAGON PHYSICIAN: REFERRING PHYSICIAN: JEISON PETTIT MD DATE OF SERVICE: 05/18/19 Discharge Plan Patient Name: JEANETH LOPES Facility: [facility]:[place] : 1950 Planned Disposition: Home Anticipated Discharge Date: 05/20/19 Discharge Date: Expected LOS: 2 Initial Reviewer: [email or web address] Initial Review Date: 05/18/2019 Generated: 05/18/19 12:55 pm DCPIA - Discharge Planning Initial Assessment Updated by [email or web address]: Becki Dee on 05/18/19 11:51 am * Is the patient Alert and Oriented? Yes * How many steps to enter\exit or inside your home? none * PCP Dr. Hernandez * Pharmacy [facility] * Preadmission Environment Home Alone * ADLs Independent * Equipment None * List name and contact numbers for known caregivers / representatives who currently or will assist patient after discharge: Ania Lopes - daughter - [phone] Venus Russo - daughter (works in rehab here) - [phone] * Verbal permission to speak to the caregivers and representatives has been obtained from the patient. Yes * Community resources currently utilized None * Additional services required to return to the preadmission environment? Yes * Can the patient safely return to the preadmission environment? No * Has this patient been hospitalized within the prior 30 days at any hospital? No Last DP export: 05/18/19 10:49 am Patient Name: JEANETH LOPES Page 47838 at 1156 All edits/amendments must be made on the electronic document DICTATION DATE: 05/18/19 115 DAYCARE ASSISTANT: MAGI 05/18/19 1155 RPT#: [id number] DC DATE: STATUS: ADM IN [facility] [address] [place] [address] END OF REPORT
--- NOTE | 2019-05-18 12:09 | MORECARE ---
CASE MANAGEMENT DISCHARGE SUMMARY PATIENT: JEANETH LOPES UNIT: [id number] ADM DATE: 05/18/19 AGE: 68 : 48 SEX: F ROOM/BED: D.1207 AUTHOR: RAJAT MONDRAGON PHYSICIAN: REFERRING PHYSICIAN: JEISON PETTIT MD DATE OF SERVICE: 05/18/19 Discharge Plan Patient Name: JEANETH LOPES Facility: [facility]:[place] : 1950 Planned Disposition: Home Anticipated Discharge Date: 05/20/19 Discharge Date: Expected LOS: 2 Initial Reviewer: [email or web address] Initial Review Date: 05/18/2019 Generated: 05/18/19 1:09 pm Comments DCP- Discharge Planning Updated by [email or web address]: Becki Dee on 05/18/19 11:[address] Patient Name: JEANETH LOPES Admission Status: ER Accout number: [id number] Admission Date: 05-18-2019 : 1950 Admission Diagnosis: Attending: JEISON PETTIT Current LOS: 1 Anticipated DC Date: 05-20-2019 Planned Disposition: Home Primary Insurance: [employer] CHOICE PPO [facility] ADVANT[employer] Discharge Planning Comments: CM met with patient and her daughter, Venus Russo to complete initial dc planning assessment. CM educated patient and Venus on the CM role and verbal consent given by patient's daughter to complete assessment. Patient had just received IV dilaudid so deferred questions to her daughter. CM verified patient's address, phone number, and emergency contact phone numbers. Patient lives at home alone and Venus reports she is independent and uses no DME devices for assistance. At discharge patient plans to return home and Venus feels this is a safe discharge plan. Venus did request that the patient get house calls arranged for discharge. CM discussed availability of home health, rehab services, and medical equipment. Venus denied known discharge needs at this time. Venus or her sister will transport her home at time of discharge. CM will continue to follow and will assist as needed with dc plans/needs. Receivable Executive: Becki Dee RN, [facility] DCPIA - Discharge Planning Initial Assessment Updated by [email or web address]: Becki Dee on 05/18/19 11:51 am * Is the patient Alert and Oriented? Yes * How many steps to enter\exit or inside your home? none * PCP Dr. Hernandez * Pharmacy [facility] - [facility] * Preadmission Environment Home Alone * ADLs Independent * Equipment None * List name and contact numbers for known caregivers / representatives who currently or will assist patient after discharge: Ania Lopes - daughter - [phone] Venus Russo - daughter (works in rehab here) - [phone] * Verbal permission to speak to the caregivers and representatives has been obtained from the patient. Yes * Community resources currently utilized None * Additional services required to return to the preadmission environment? Yes * Can the patient safely return to the preadmission environment? No * Has this patient been hospitalized within the prior 30 days at any hospital? No Last DP export: 05/18/19 10:56 am Patient Name: JEANETH LOPES Page 22036 at 1209 All edits/amendments must be made on the electronic document DICTATION DATE: 05/18/191208 DIRECTOR BUSINESS DEVELOPMENT: MAGI 05/18/19 120 RPT#: [id number] DC DATE: STATUS: ADM IN [facility] [address] [place] [address] END OF REPORT
[2019-05-18] MEDS ORDERED: NORVASC2.5 MG PO (12:26)
[2019-05-18 12:48] LABS: INR 4.72 (0.85-1.17); PROTIME 43.5 SECONDS (11.6-15.0)
[2019-05-18 17:39] VITALS: BP 141/76
--- NOTE | 2019-05-18 17:39 | NUR ---
PT CONCERN THAT SHE HAS NOT URINATED SINCE SHE CAME TO THE FLOOR. BLADDER SCANNED PT THAT THIS TIME. SHOWING 127CC IN BLADDER. ALSO PROVIDED PT WITH WATER TO RINSE OUT MOUTH. PT DENIES ANY OTHER NEEDS AT THIS TIME. CALL LIGHT IN REACH, NOTED WILL CONTINUE TO MONITOR.
--- NOTE | 2019-05-18 19:44 | NUR ---
PATIENT RESTING IN BED AND DENIES NEEDS AT THIS TIME. BED IN LOWEST POSITION AND CALL LIGHT WITHIN REACH. ENCOURAGED THE PATIENT TO CALL IF SHE HAS NEEDS. WILL CONTINUE TO MONITOR.
[2019-05-18 20:00] VITALS: BP 153/70
[2019-05-19 00:46] VITALS: BP 161/81
[2019-05-19 04:00] VITALS: BP 172/87
[2019-05-19 06:38] LABS: PROTIME 46.7 SECONDS (11.6-15.0)
[2019-05-19 06:46] LABS: INR 5.16 (0.85-1.17)
[2019-05-19 06:55] LABS: ALBUMIN 3.2 g/dL (3.4-5.0); ANION GAP 18.5 mmol/L (8-16); BILIRUBIN - TOTAL 0.41 mg/dL (0.2-1.3); CALCIUM 8.3 mg/dL (8.5-10.1); CARBON DIOXIDE 20.8 mmol/L (21.0-32.0); CREATININE - SERUM 1.2 mg/dL (0.6-1.3); PROTEIN - SERUM 7.2 g/dL (6.4-8.2); T4 THYROXIN - FREE 1.2 ng/dL (0.76-1.46); THYROID STIMULATING HORMONE 2.04 uIU/mL (0.36-3.74)
[2019-05-19 06:56] LABS: BASOPHILS 0.3 % (0-2); EOSINOPHILS 0.6 % (0-7); HEMATOCRIT 40.3 % (36.0-48.0); HEMOGLOBIN 12.9 g/dL (12-16); IMMATURE GRANULOCYTES 0.1 % (0-5); LYMPHOCYTES 10.5 % (15-50); MCH 30.4 pg (26.0-34.0); MEAN PLATELET VOLUME 10.7 fL (7.4-10.4); MONOCYTES 9.5 % (2-11); PLATELET COUNT 166 10x3/uL (130-400); RBC 4.24 10x6/uL (4.00-5.40); RDW 17.2 % (11.5-14.5); WBC 7.3 10x3/uL (4.8-10.8)
[2019-05-19 06:57] LABS: POTASSIUM - SERUM 4.3 mmol/L (3.5-5.1)
[2019-05-19 07:30] VITALS: BP 151/67
--- NOTE | 2019-05-19 10:46 | NUR ---
DR HEALY IN ROOM. DTR MECCA IN ROOM. DISCUSSED DECREASING DILAUDED DUE TO OVER SEDATION AND HALLUCINATING. NEW ORDERS RECEIVED.
[2019-05-19 11:11] VITALS: BMI 33.1
--- NOTE | 2019-05-19 16:08 | NUR ---
PATIENT EXPERIENCING AMS. VSS. PATIENT IS AGITATED, SPEECH IS SLURRED. PATIENT ORIENTED X 4. PATIENT STATES" ALL THESE NEW NURSES ARE COMING IN. I NEED MY PAIN BUTTON . AM I DYING, ETC." DTR IN ROOM STATES THIS IS NOT HER BASELINE AT ALL. DTR FEELS THAT THE DILUADED IS CAUSING THESE SX AND REQUESTS DR BE CALLED TO DC RESEARCH ENGINEER MARINE EQUIPMENT . PATIENT ALSO EXPERIENCED RETCHING WITHOUT ANY VOMITUS. DTR DOES NOT WANT HER TO HAVE PO MEDS UNTIL TOMORROW. CONTACTED SAMIR DAVISON. NEW ORDER RECEIVED TO DC RESEARCH ENGINEER MARINE EQUIPMENT. RESEARCH ENGINEER MARINE EQUIPMENT DCD. NEW ORDER FOR DILAUDED 1 MG IV EVERY 6 HOURS PRN PAIN. WILL CONTINUE TO MONTIOR. SR UP X 2 BED IN LOW POSITION AND CALL LIGHT IN ROOM.
--- NOTE | 2019-05-19 17:45 | NUR ---
PATIENT IS MORE ALERT AND LESS CONFUSED. PATIENT BATHED, LINEN CHANGED AND PATIENT SITTING UP IN BS CHAIR. PATIENT DENEIS ANY NEEDS, PAIN, OR NAUSEA. WILL CONTINUE TO MONITOR. CALL LIGHT IN REACH.
--- NOTE | 2019-05-19 18:41 | NUR ---
PATIENT CONTINUES TO BE ALERT, ORIENTED AND TALKATIVE WITHOUT CONFUSION. PATIENT CONTINUES TO SIT IN BS CHAIR. DAUGHTER BS. WILL CONTINUE TO MONITOR.
[2019-05-19 18:44] VITALS: BP 128/72
[2019-05-19 20:28] VITALS: BP 157/66
--- NOTE | 2019-05-19 20:38 | NUR ---
EVEVNING ROUNDS COMPLETED. VSS, ALERT WITH MINIMAL CONFUSION. PT HAS BEEN COCNSTANTLY REQUESTING FOR SOMETHING TO DRINK. EDUCTATE PT ON THE NEED TO REMAIN NPO PER DOCTOR'S ORDER. PT CURRENTLY SITTING IN CHAIR DENIES ANY FURTHER NEEDS AT THIS TIME. WILL CPOC. CL WITHIN REACH.
[2019-05-20 00:09] VITALS: BP 145/59
[2019-05-20 04:36] VITALS: BP 151/64
--- NOTE | 2019-05-20 06:50 | NUR ---
PT CONTINUES TO HAVE NAUSEA THIS AM. FEARS SHE WILL THROW UP HER MEDICINE. REFUSED MEDS BY MOUTH WILL PASS REPORT TO INCOMING NURSE THAT IF N/V IMPROVED PO MEDS SHOULD BE GIVEN.
--- NOTE | 2019-05-20 07:37 | NUR ---
ALERT AND ORIENTED AT THIS TIME. NPO. HAS PAUL SCDS ON. CL IN REACH.
[2019-05-20 07:40] LABS: HEMATOCRIT 32.9 % (36.0-48.0); HEMOGLOBIN 10.9 g/dL (12-16); LYMPHOCYTES 13.8 % (15-50); MCH 31.3 pg (26.0-34.0); MCHC 33.1 g/dL (31.0-37.0); MCV 94.5 fL (80.0-100.0); MEAN PLATELET VOLUME 9.7 fL (7.4-10.4); NEUTROPHILS 71.7 % (40-80); RBC 3.48 10x6/uL (4.00-5.40); RDW 16.6 % (11.5-14.5)
[2019-05-20 07:44] LABS: PLATELET COUNT 118 10x3/uL (130-400); WBC 5.3 10x3/uL (4.8-10.8)
[2019-05-20 07:50] LABS: ALBUMIN 2.8 g/dL (3.4-5.0); BILIRUBIN - TOTAL 0.44 mg/dL (0.2-1.3); CARBON DIOXIDE 19.5 mmol/L (21.0-32.0); CREATININE - SERUM 0.9 mg/dL (0.6-1.3); PROTEIN - SERUM 6.1 g/dL (6.4-8.2)
[2019-05-20 07:53] LABS: ANION GAP 16.1 mmol/L (8-16); POTASSIUM - SERUM 3.6 mmol/L (3.5-5.1)
[2019-05-20 07:59] LABS: PROTIME 47.1 SECONDS (11.6-15.0)
[2019-05-20 08:11] VITALS: BP 144/60
[2019-05-20 08:20] LABS: INR 5.22 (0.85-1.17)
--- NOTE | 2019-05-20 08:27 | NUR ---
CALLED AND LEFT CALL BACK MUMBER TO LANEY DAWSON- INR 5.22.
--- NOTE | 2019-05-20 12:48 | NUR ---
ALERT AND ORIENTED. NO CL OF PAIN AT THIS TIME. ATE CLEAR LIQUID DIET WO DIFFICULTY.
[2019-05-20 13:20] VITALS: BP 149/67
--- NOTE | 2019-05-20 15:32 | NUR ---
NO CHANGE IN ASSESSMENT. RESP EVEN AND UNLABORED. NO C/O PAIN AT THIS TIME. CL IN REACH.
[2019-05-20 16:14] VITALS: BP 146/66
[2019-05-20 19:37] VITALS: BP 129/87
--- NOTE | 2019-05-20 20:00 | NUR ---
EVEVNING ROUNDS COMPLETED. VSS, AAOX3, NO S/S OF DISTRESS. ZOFRAN DRIP INFUSING. PIV INTACT. ASSIST PT TO THE BATHROOM AND PROVIDED FRESH LINEN. PT VOICED THANKS. WILL CPOC. CL WITHIN REACH.
[2019-05-21] VITALS: BP 129/87
[2019-05-21 03:37] VITALS: BP 130/54
[2019-05-21 06:47] LABS: BASOPHILS 0.1 % (0-2); HEMATOCRIT 33.5 % (36.0-48.0); IMMATURE GRANULOCYTES 0.1 % (0-5); LYMPHOCYTES 18.1 % (15-50); MCH 30.6 pg (26.0-34.0); MCHC 32.8 g/dL (31.0-37.0); MCV 93.1 fL (80.0-100.0); MEAN PLATELET VOLUME 9.9 fL (7.4-10.4); NEUTROPHILS 67.7 % (40-80); PLATELET COUNT 124 10x3/uL (130-400); RDW 16.6 % (11.5-14.5)
[2019-05-21 07:02] LABS: INR 4.23 (0.85-1.17); PROTIME 39.9 SECONDS (11.6-15.0)
[2019-05-21 07:11] LABS: ALBUMIN 2.5 g/dL (3.4-5.0); BILIRUBIN - TOTAL 0.53 mg/dL (0.2-1.3); CALCIUM 7.6 mg/dL (8.5-10.1); PROTEIN - SERUM 5.6 g/dL (6.4-8.2)
[2019-05-21 07:13] LABS: ANION GAP 11.2 mmol/L (8-16); CARBON DIOXIDE 26.8 mmol/L (21.0-32.0)
--- NOTE | 2019-05-21 07:15 | NUR ---
PT RESTING SUPINE IN BED UPON ENTERING, PT HAS IV TO RIGHT FOREARM, Q6 DILAUDID, IS ON ROOM AIR AND RUNS SINUS RHYTHM ON THE MONITOR. PT REQUESTED DILAUDID, TOLD PT I WIILL BE THERE WITH IT SOON POSSIBLE. DENIES OTHER NEEDS AT THIS TIME. BED IN LOWEST POSITION, BED RAILS X2, CALL LIGHT WITHIN REACH. WILL CTM.
[2019-05-21 07:21] LABS: WBC 7.1 10x3/uL (4.8-10.8)
--- NOTE | 2019-05-21 07:49 | NUR ---
ADMINISTERED PRN DILAUDID FOR ABDOMINAL PAIN LEVEL OF 10/10. PT DENIES OTHER NEEDS AT THIS TIME. BED IN LOWEST POSITION, BED RAILS X2, CALL LIGHT WITHIN REACH. WILL CTM.
[2019-05-21 09:26] VITALS: BP 142/73
--- NOTE | 2019-05-21 09:54 | NUR ---
ADMINISTERED MORNING MEDICATION AT THIS TIME, NO TROUBLE SWALLOWING. DENIES OTHER NEEDS AT THIS TIME. WILL CTM.
--- NOTE | 2019-05-21 11:06 | NUR ---
PT UP TO BATHROOM AND BACK TO BED. DENIES OTHER NEEDS AT THIS TIME. WILL CTM.
--- NOTE | 2019-05-21 11:26 | NUR ---
ADMINISTERED MEDICATION AT THIS TIME, NO TROUBLE SWALLOWING. DENIES OTHER NEEDS AT THIS TIME. WILL CTM.
--- NOTE | 2019-05-21 12:41 | NUR ---
ADMINISTERED IV MEDICATION, TOLERATED WELL, NO COMPLAINTS OF BURNING OR PAIN. GI AT BEDSIDE. DENIES ANY NEEDS AT THIS TIME. WILL CTM.
--- NOTE | 2019-05-21 12:59 | NUR ---
Nutrition Follow-up: Pt reports nausea and diarrhea. Per RN, pt's diet to advance for lunch. Reports decreased appetite/PO intake and unintentional wt loss since Sep. Per chart review, wt on 09/30 was 232# (loss of 51#/22% in 7 mos). Diet: Clear Liquid (advance as tolerated) Wt: 181# Labs reviewed Meds reviewed Pt with severe malnutrition of chronic illness R/T DM with gastroparesis AEB: 1. <75% intake of est energy needs for >=1 month 2. Wt loss of 22% in 7 mos Rec continue to advance diet as tolerated as medically feasible. May consider Procalamine if unable to advance beyond clear liquids today. RD following.
[2019-05-21 13:14] VITALS: BP 166/65
--- NOTE | 2019-05-21 14:30 | NUR ---
NURSE SAT OUTSIDE PT ROOM WITH DOOR OPEN WHILE WAITING ON [facility] NURSE TO ARRIVE. PT IS SITTING ON EDGE OF BED AND LEANED OVER WITH WASH CLOTH ON HER HEAD. PT STATES, "I CANNOT BEAR THIS PAIN." ADVISED PT THAT WILL BE COMING TO SPEAK WITH HER REGARDING HER PAIN MEDICATION. PT STATES, "I HAVE ALREADY LIVED LONGER THAN MOST OF THE PEOPLE I KNOW." NURSE ASKED PT IF SHE IS CURRENTLY THINKING OF HARMING HERSELF. PT RESPONDED, "WELL I KNOW I COULD NOT DO IT, I WOULD HAVE TO HAVE SOMEONE DO IT FOR ME." [facility] NURSE HERE TO TALK WITH PT. NURSE LEFT THE ROOM
--- NOTE | 2019-05-21 14:33 | NUR ---
DR. ROJAS NOTIFIED AND REVIEWED PT'S BEHAVIOR AND ASSESSMENT RESULTS. PT A LOW RISK PER DR. ROJAS. DR. ROJAS STATED TO GIVE RESOURCES TO PT AT THE TIME OF DISCHARGE. NO FURTHER ORDERS AT THIS TIME. RESOURCES REVIEWED WITH PT AND SHE VERBALIZIED UNDERSTANDING.
--- NOTE | 2019-05-21 14:41 | NUR ---
PATIENT DID THREATEN TO HURT HERSELF TO WITNESSES THIS SHIFT. THIS NURSE DID SUICIDE SCREEENING AND PATIENT DENIED ALL SUICIDAL THOUGHTS. PATIENT WILL HAVE A ONE TO ONE SITTER. DISCUSSED WITH DR. ROJAS AT THIS TIME. WILL PLACE SITTER.
--- NOTE | 2019-05-21 14:50 | NUR ---
PT ADMITTED TO HAVING SUICIDAL THOUGHTS, CHARTED A SUICE ASSESSMENT AND CONTACTED GROUP HOME. [facility] CAME AND ALSO DID A SUICDE SCREENING. PT IS UPSET WITH THE CURRENT SITUATION AND DOESN'T UNDERSTAND WHY NOBODY IS HELPING HER. I HAVE EXPLAINED WHY DR. COHEN HAS D/C DILAUDID AND THAT HE PLANS TO COME SPEAK WITH HER THIS AFTERNOON.
--- NOTE | 2019-05-21 14:51 | NUR ---
NURSING HOME NURSE LEFT. NURSE WENT AND SAT NEXT TO PT AND ADVISED PT THAT WE WANT TO MAKE SURE SHE GETS THE HELP SHE NEEDS. NURSE ASKED PT IF SHE IS STILL HAVING THOUGHTS OF HARMING HERSELF AND PT RESPONDED, "WELL WHO WOULD WANT TO LIVE LIKE THIS. IN ALL THIS PAIN." ADVISED PT THAT NURSING HOME IS SENDING ANOTHER NURSE OVER TO TALK WITH HER AND THAT WE ARE ALL JUST WANTING WHAT IS BEST FOR HER. PT VERBALIZES UNDERSTANDING
--- NOTE | 2019-05-21 15:03 | NUR ---
[facility] HAS SENT A SITTER FOR THE PT.
--- NOTE | 2019-05-21 16:37 | NUR ---
ADMINISTERED MEDICATION, NO TROUBLE SWALLOWING. DENIES OTHER NEEDS AT THIS TIME. SKILLED NURSING SITTER AT BEDSIDE. WILL CTM.
--- NOTE | 2019-05-21 18:43 | NUR ---
ADMINISTERED PRN DILAUDID FOR PAIN LEVEL OF 8/10. PT DENIES OTHER NEEDS AT THIS TIME. PT IS RESTING COMFORTABLY IN BED WITH DETENTION AIDE AT BEDSIDE. WILL CTM.
--- NOTE | 2019-05-21 19:07 | NUR ---
REPORT PASSED TO [facility] SET UP OPERATOR VERTICAL
[2019-05-21 20:00] VITALS: BP 117/75
--- NOTE | 2019-05-21 21:52 | NUR ---
PT IN BED RESTING. SITTER AT BEDSIDE.
[2019-05-22] VITALS: BP 139/54
[2019-05-22 07:08] LABS: ALBUMIN 2.3 g/dL (3.4-5.0); ALKALINE PHOSPHATASE 48 U/L (46-116); ALT (SGPT) 14 U/L (10-68); BILIRUBIN - TOTAL 0.46 mg/dL (0.2-1.3); CALCIUM 7.7 mg/dL (8.5-10.1); CARBON DIOXIDE 27.7 mmol/L (21.0-32.0); CHLORIDE - SERUM 106 mmol/L (98-107); CREATININE - SERUM 0.8 mg/dL (0.6-1.3); GLUCOSE 98 mg/dL (74-106); PROTEIN - SERUM 5.4 g/dL (6.4-8.2); SODIUM 143 mmol/L (136-145); eGFR NON AFRICAN AMERICAN 75 mL/min (90-120)
[2019-05-22 07:15] LABS: BASOPHILS 0.2 % (0-2); EOSINOPHILS 2.8 % (0-7); HEMATOCRIT 33.7 % (36.0-48.0); HEMOGLOBIN 11.2 g/dL (12-16); IMMATURE GRANULOCYTES 0.2 % (0-5); LYMPHOCYTES 15.8 % (15-50); MCH 30.7 pg (26.0-34.0); MCHC 33.2 g/dL (31.0-37.0); MCV 92.3 fL (80.0-100.0); MEAN PLATELET VOLUME 10.2 fL (7.4-10.4); PLATELET COUNT 125 10x3/uL (130-400); RBC 3.65 10x6/uL (4.00-5.40); RDW 16.1 % (11.5-14.5); WBC 6.5 10x3/uL (4.8-10.8)
[2019-05-22 07:20] LABS: INR 3.41 (0.85-1.17); PROTIME 33.6 SECONDS (11.6-15.0)
--- NOTE | 2019-05-22 07:20 | NUR ---
PT RESTING COMFORTABLY IN BED NO S/S OF DISTRESS NOTED. VITALS ASSESSED AT THIS TIME. VTIALS STABLE BP 145/46, 79 BPM, 98% O2 ON ROOM AIR, AND 16 BREATHS PER MINUTE. REQUESTED PAIN MEDICATION, INFORMED PT THAT I WILL BE BACK WITH IT SOON POSSIBLE.
[2019-05-22 07:30] LABS: CALC OSMOLALITY 281 mosm/kg (275-300); UREA NITROGEN 3 mg/dL (7-18)
[2019-05-22 07:31] LABS: POTASSIUM - SERUM 2.9 mmol/L (3.5-5.1)
[2019-05-22 07:33] VITALS: BP 145/46
--- NOTE | 2019-05-22 07:48 | NUR ---
PT DENIES SI AT THIS TIME. PT IS COMPLAINING OF PAIN AND NAUSEA. NURSE IS AWARE. SITTER AT BEDSIDE. PT SHOWS SIGNS OF DEPRESSION BUT WILL NOT RATE HER DEPRESSION ON A 0-10 SCALE. WILL CONTINUE TO MONITOR.
--- NOTE | 2019-05-22 08:00 | NUR ---
PT RESTING COMFORTABLY IN BED WITH EYES CLOSED, BREATHING EVEN AND UNLABORED, NO S/S OF DISTRESS. DID NOT WAKE PT TO ADMINISTER MEDICATION DUE TO PT STATING SHE DID NOT SLEEP LAST NIGHT. SITTER AT BEDSIDE. WILL CTM.
--- NOTE | 2019-05-22 10:00 | NUR ---
EMMANUELLE STATED SHE SAW PT STICKING FINGER DOWN HER THROAT TO INDUCE VOMITTING, PT NEVER PRODUCED ANY VOMIT. DENIES STICKING HER FINGER DOWN HER THROAT. REQEUSTED PAIN MEDICATION AT THIS TIME.
--- NOTE | 2019-05-22 10:35 | NUR ---
ADMINISTERED MORNING MEDICATION AT THIS TIME. NO TROUBLE SWALLOWING. ALSO ADMINISTERED PRN DILAUDID FOR PAIN LEVEL OF 10/10 IN ABDOMEN. PT DENIES ANY OTHER NEEDS AT THIS TIME. PT MOOD INCREASED AFTER PAIN MEDICATION ADMINISTERED.
--- NOTE | 2019-05-22 11:00 | NUR ---
HAD TELEPHONE CONVERSATION WITH PT DAUGHTER, MECCA. SHE IS REQUESTING THAT PT BE PUT ON PO MEDICATION SO THAT SHE IS ABLE TO DISCHARGE. PT IS NOT COMPLYING WITH DIET ORDER, REFUSING TO EAT.
--- NOTE | 2019-05-22 11:45 | NUR ---
REASSESSED PT PAIN LEVEL AFTER PRN DILAUDID. PT STATES PAIN LEVEL IS STILL A 10/10. STATES DILAUDID IS NOT HELPING ANYMORE, REQUESTED SOMETHING DIFFERENT FOR PAIN. WILL NOTIFY PHYSICIAN. DENIES OTHER NEEDS AT THIS TIME. WILL CTM.
--- NOTE | 2019-05-22 12:30 | NUR ---
PT ATE ALL OF LUNCH.
--- NOTE | 2019-05-22 12:59 | NUR ---
Nutrition Follow-up: Visited with pt during lunch. Pt appeared to have eaten most/all of clear liquid lunch tray. +nausea; no vomiting. Noted previous diet order for Full Liquid (ADAT to low residue) but that it was cancelled. Diet: Clear Liquid Last BM: 05/22 No new wt Labs noted: Alb 2.3, Ca 7.7, K+ 2.9 Meds noted: KDur, Reglan, Carafate, NS 0.9% @ 125 mL/hr Rec ADAT as medically feasible. Pt without substantial PO intake since admit. If unable to advance past clear liquids, rec initiate Procalamine. Provided "Gastroparesis Nutrition Therapy" handout per pt request. RD following.
--- NOTE | 2019-05-22 14:13 | NUR ---
PT HAS TOLERATED LUNCH WELL, LIMITED NAUSEA.
--- NOTE | 2019-05-22 15:00 | NUR ---
PT REQUESTED PHONE VENUE COORDINATOR, DENIED DUE TO SUICIDE WATCH. PT WAS VERY UPSET AND AGGITATED. THREATENED TO LEAVE AMA STATING "I AM NOT A PRISONER, GET ME MY PAPERS, I AM LEAVING."
--- NOTE | 2019-05-22 15:30 | NUR ---
PT DAUGHTER, MECCA, CONTACTED ME STATING PT HAD CALLED AND WANTED TO LEAVE AMA. NOTIFIED FAMILY MEMBER THAT DR. ROJAS IS COMING TO DO AN EVALUATION PER CONSULT REQUEST.
--- NOTE | 2019-05-22 15:45 | NUR ---
DR. ROJAS STATES PT DOES NOT NEED A SITTER AND DOES NOT NEED TO BE ADMITTED TO PSYCH. PT BECAME AWARE AND HER ATTITUDE CHANGED. SHE NO LONGER WANTED TO LEAVE AMA.
--- NOTE | 2019-05-22 17:33 | NUR ---
PT RESTING UPRIGHT IN BED. NO S/S OF DISTRESS NOTED. NO NEEDS AT THIS TIME. WILL CTM.
--- NOTE | 2019-05-22 19:22 | NUR ---
PT UP OUT OF BED WANTING SOMETHING FOR PAIN. SHE IS UPSET TAHT HER MD FREDY GONZALEZ.
[2019-05-22 20:10] VITALS: BP 164/77
--- NOTE | 2019-05-22 21:27 | NUR ---
PT STATES PAIN MED ADMINSITERED MADE HER PAIN WORSE.
[2019-05-23 07:37] LABS: BASOPHILS 0.2 % (0-2); HEMATOCRIT 34.7 % (36.0-48.0); HEMOGLOBIN 11.7 g/dL (12-16); IMMATURE GRANULOCYTES 0.2 % (0-5); LYMPHOCYTES 21.5 % (15-50); MCHC 33.7 g/dL (31.0-37.0); MCV 91.8 fL (80.0-100.0); MEAN PLATELET VOLUME 10.6 fL (7.4-10.4); MONOCYTES 9.7 % (2-11); NEUTROPHILS 65.4 % (40-80); PLATELET COUNT 131 10x3/uL (130-400); RBC 3.78 10x6/uL (4.00-5.40); RDW 16.1 % (11.5-14.5)
[2019-05-23 07:43] LABS: INR 2.87 (0.85-1.17); PROTIME 29.3 SECONDS (11.6-15.0)
[2019-05-23 07:44] VITALS: BP 189/84
[2019-05-23 07:49] LABS: WBC 4.7 10x3/uL (4.8-10.8)
[2019-05-23 08:01] LABS: ALBUMIN 2.5 g/dL (3.4-5.0); ALKALINE PHOSPHATASE 51 U/L (46-116); ALT (SGPT) 14 U/L (10-68); BILIRUBIN - TOTAL 0.46 mg/dL (0.2-1.3); CALCIUM 7.9 mg/dL (8.5-10.1); CARBON DIOXIDE 26.7 mmol/L (21.0-32.0); CHLORIDE - SERUM 109 mmol/L (98-107); CREATININE - SERUM 0.8 mg/dL (0.6-1.3); GLUCOSE 107 mg/dL (74-106); PROTEIN - SERUM 5.8 g/dL (6.4-8.2); SODIUM 144 mmol/L (136-145); eGFR NON AFRICAN AMERICAN 75 mL/min (90-120)
[2019-05-23 08:02] LABS: CALC OSMOLALITY 282 mosm/kg (275-300); POTASSIUM - SERUM 2.9 mmol/L (3.5-5.1); UREA NITROGEN 2 mg/dL (7-18)
--- NOTE | 2019-05-23 08:30 | NUR ---
AM MEDS GIVEN AT THIS TIME. PT A/O X4, RESP EVEN AND NONLABORED ON RA. RT FA INFUSING NS AT 125CC/HR AND ZOFRAN AT 4.7. PT DENIES ANY NEEDS AT THIS TIME. CALL LIGHT IN REACH, NAD NOTED, WILL CONTINUE PLAN OF CARE.
--- NOTE | 2019-05-23 09:30 | PN ---
PATIENT:JEANETH JUDEG MEDICAL RECORD: [id number] LOCATION:D. D.120 ADMISSION DATE: 05/18/19 PROGRESS NOTE DATE OF SERVICE: 05/22/2019 Psychiatric Consultation The patient is 68 years old and she was admitted to the hospital secondary to intractable nausea and vomiting. CHIEF COMPLAINT: Suicidal statements. HISTORY OF PRESENT ILLNESS: The patient apparently has had a fair amount of abdominal pain and had had her Dilaudid discontinued. She was very upset about this and made statements to the nurse repeatedly and they are documented that she would just kill herself by running out into traffic unless she got the narcotic. She was subsequently placed with a sitter and I have been consulted. On interview, the patient is somewhat embarrassed, says she was just upset and really did not mean what she said. She has no history of trying to harm herself and no history of psychiatric care. She denies any history of alcohol or drug use. She does have a long and significant medical history along with episodes of nausea, vomiting and abdominal pain that are thought to be related to gastroparesis. She does take Reglan for this. I have cautioned her about the long-term use of narcotics and they have very powerful addictive properties. I have also cautioned her that narcotics will slow gastric motility and that is probably working against her gastroparesis. I have also informed her that if someone is addicted to narcotics when the person stops taking them, abdominal pain, nausea, and vomiting are typical withdrawal symptoms. She is dismissive of this information, says that she just prefers to keep to these issues between herself and her dumpster driver. She again denies symptoms that would represent an acute dangerousness. ASSESSMENT: Adjustment disorder with mixed emotional features. PLAN: I do not believe the patient is in acute danger to herself. I think she made some statements that were hyperbolic in nature while she was under stress. She has no history of attempting to harm herself. No history of psychiatric disease and is not appropriate for transfer to a psychiatric unit. Her sitter may be discontinued. I do not think it is necessary and I would recommend that once her treatment here is completed she just be discharged to home without any mental health follow up. I do believe she understands the nature of making dramatic statements of this kind and the consequences and I do not think she will make similar mistake in the future. TRANSINT:[id number] Voice Confirmation ID: [id number] DOCUMENT ID: [id number] PROGRESS NOTE [id number] JEANETH JUDGE PETER MD at 0930 CC: [id number] DICTATION DATE: 05/22/19 1649 RADIO DISC JOCKEY: 05/22/[address] [facility] [id number] [place] [address]
--- NOTE | 2019-05-23 10:37 | NUR ---
NEW BAG OF NS HUNG AT THIS TIME. PT RESTING COMFORTABLY WITH EYES CLOSED. CALL LIGHT IN REACH, BEDSIDE RAILS X2, NAD NOTED, WILL CONTINUE TO MONITOR.
--- NOTE | 2019-05-23 11:32 | NUR ---
HELPED PT IN THE SHOWER, ALSO PROVIDED COMPLETE LINEN CHANGE AT THIS TIME. PT DENIES ANY OTHER NEEDS AT THIS TIME. CALL LIGHT IN REACH, NAD NOTED, WILL CONTINUE TO MONITOR.
--- NOTE | 2019-05-23 12:12 | NUR ---
NOFIED BY PT ABOUT IV LEAKING. D/C IV WITH CATHETER TIP INTACT. ALSO GAVE NORCO FOR PAIN LEVEL OF 10/10.PT DENIES ANY OTHER NEEDS AT THIS TIME. CALL LIGHT IN REACH, NAD NOTED, WILL START NEW IV.
[2019-05-23 12:18] VITALS: BP 124/64
[2019-05-23 15:56] VITALS: BP 156/57
--- NOTE | 2019-05-23 16:12 | NUR ---
GAVE 40MEQ OF K FOR LOW K OF 303. ALSO GAVE NORCO FOR PAIN LEVEL OF 8/10. PT DENIES ANY OTHER NEEDS AT THIS TIME. CALL LIGHT IN REACH, NAD NOTED.
--- NOTE | 2019-05-23 18:29 | NUR ---
PT RESTING COMFORTABLY IN BED, WITH EYES CLOSED, RESP EVEN AND NONLABORED, CALL LIGHT IN REACH, BEDSIDE RAILS X2, NAD NOTED.
--- NOTE | 2019-05-23 19:35 | NUR ---
PATIENT RESTING IN BED WITH NO S/S OF DISTRESS AND DENIES NEEDS AT THIS TIME. BED IN LOWEST POSITION AND CALL LIGHT WITHIN REACH. ENCOURAGED THE PATIENT TO CALL IF SHE HAS NEEDS. WILL CONTINUE TO MONITOR.
[2019-05-23 19:57] VITALS: BP 169/72
[2019-05-24 00:15] VITALS: BP 152/99
[2019-05-24 04:25] VITALS: BP 145/68
[2019-05-24 06:53] LABS: BASOPHILS 0.2 % (0-2); EOSINOPHILS 2.6 % (0-7); HEMATOCRIT 36.1 % (36.0-48.0); HEMOGLOBIN 12.1 g/dL (12-16); LYMPHOCYTES 25.1 % (15-50); MCH 30.9 pg (26.0-34.0); MCHC 33.5 g/dL (31.0-37.0); MCV 92.1 fL (80.0-100.0); MEAN PLATELET VOLUME 10.1 fL (7.4-10.4); NEUTROPHILS 62.1 % (40-80); PLATELET COUNT 142 10x3/uL (130-400); RBC 3.92 10x6/uL (4.00-5.40); RDW 16.3 % (11.5-14.5)
[2019-05-24 07:15] LABS: ALBUMIN 2.7 g/dL (3.4-5.0); ALKALINE PHOSPHATASE 53 U/L (46-116); ALT (SGPT) 22 U/L (10-68); BILIRUBIN - TOTAL 0.41 mg/dL (0.2-1.3); CALC OSMOLALITY 282 mosm/kg (275-300); CHLORIDE - SERUM 108 mmol/L (98-107); CREATININE - SERUM 0.7 mg/dL (0.6-1.3); GLUCOSE 94 mg/dL (74-106); POTASSIUM - SERUM 3.3 mmol/L (3.5-5.1); PROTEIN - SERUM 5.7 g/dL (6.4-8.2); SODIUM 144 mmol/L (136-145); UREA NITROGEN 1 mg/dL (7-18); eGFR NON AFRICAN AMERICAN 88 mL/min (90-120)
--- NOTE | 2019-05-24 07:15 | NUR ---
MORNING ROUNDS COMPLETE, NO C/O PAIN AT THIS TIME. VSS, NO SIGNS OF DISTRESS. PT LAYING IN BED. CL IN REACH BED IN LOWEST POSITION.
[2019-05-24 08:05] VITALS: BP 160/82
[2019-05-24 09:01] LABS: INR 2.57 (0.85-1.17); PROTIME 26.9 SECONDS (11.6-15.0)
[2019-05-24 12:36] VITALS: BP 150/58
--- NOTE | 2019-05-24 14:00 | NUR ---
PT LAYING IN BED. NO SIGNS OF DISTRESS, PT DENIES ANY NEEDS AT THIS TIME. CONT WITH POC.
[2019-05-24 15:15] VITALS: BP 162/77
--- NOTE | 2019-05-24 19:11 | NUR ---
PATIENT RESTING IN BED AND REQUESTED PAIN MEDS FOR 10/10 BURNING PAIN IN HER ABDOMEN. PATIENT DENIES OTHER NEEDS. WILL PULL PAIN MED AND ADMINISTER PER ORDERS. WILL CONTINUE TO MONITOR.
[2019-05-24 19:29] VITALS: BP 170/67
[2019-05-25] VITALS (7 sets, daily range): BP systolic 143–173; BP diastolic 60–102; Ht 157.5 cm; Wt 82.1 kg
[2019-05-25 06:13] LABS: BASOPHILS 0.2 % (0-2); HEMATOCRIT 36.3 % (36.0-48.0); HEMOGLOBIN 12.2 g/dL (12-16); IMMATURE GRANULOCYTES 0.2 % (0-5); LYMPHOCYTES 23.1 % (15-50); MCH 30.8 pg (26.0-34.0); MCHC 33.6 g/dL (31.0-37.0); MCV 91.7 fL (80.0-100.0); MEAN PLATELET VOLUME 10.3 fL (7.4-10.4); MONOCYTES 11.5 % (2-11); PLATELET COUNT 141 10x3/uL (130-400); RBC 3.96 10x6/uL (4.00-5.40); WBC 4.6 10x3/uL (4.8-10.8)
[2019-05-25 06:36] LABS: CALC OSMOLALITY 278 mosm/kg (275-300); CALCIUM 8.2 mg/dL (8.5-10.1); CARBON DIOXIDE 33.5 mmol/L (21.0-32.0); CHLORIDE - SERUM 104 mmol/L (98-107); CREATININE - SERUM 0.8 mg/dL (0.6-1.3); GLUCOSE 92 mg/dL (74-106); SODIUM 142 mmol/L (136-145); eGFR NON AFRICAN AMERICAN 75 mL/min (90-120)
[2019-05-25 06:40] LABS: UREA NITROGEN 2 mg/dL (7-18)
[2019-05-25 07:01] LABS: INR 2.27 (0.85-1.17); PROTIME 24.3 SECONDS (11.6-15.0)
--- NOTE | 2019-05-25 07:23 | NUR ---
PT RESTING SUPINE IN BED UPON ENTERING WITH EYES CLOSED. BREATHING EVEN AND UNLABORED, NO S/S OF DISTRESS NOTED. PT HAS NO IV AND IS ON ROOM AIR. ALERT AND ORIENTED X4. WILL CTM.
--- NOTE | 2019-05-25 08:46 | NUR ---
ADMINISTERED PRN NORCO 5/325 FOR PAIN LEVEL OF 10/10 IN ABDOMEN, NO TROUBLE SWALLOWING. DENIES OTHER NEEDS. WILL REASSESS.
--- NOTE | 2019-05-25 09:11 | NUR ---
ADMINISTERED MORNING MEDICATION AT THIS TIME, NO TROUBLE SWALLOWING. REASSESSED PAIN AT THIS TIME, PT NOW REPORTS THAT IT'S 06/23. DENIES OTHER NEEDS AT THIS TIME. WILL CTM.
--- NOTE | 2019-05-25 10:43 | NUR ---
PT RESTING COMFORTABLY IN BED WITH EYES CLOSED, BREATHING EVEN AND UNLABORED. NO S/S OF DISTRESS NOTED. BED IN LOWEST POSITION, BED RAILS X2, CALL LIGHT WITHIN REACH. WILL CTM.
--- NOTE | 2019-05-25 11:50 | NUR ---
ADMINISTERED MEDICATION AT THIS TIME, NO TROUBLE SWALLOWING. PT REQUESTED MORE PAIN MEDICATION, INFORMED PT THAT IT IS ONLY ORDERED Q4 HOURS, SO IT HAS NOT BEEN LONG ENOUGH. DENIES OTHER NEEDS AT THIS TIME. WILL CTM.
--- NOTE | 2019-05-25 12:31 | MORECARE ---
CASE MANAGEMENT DISCHARGE SUMMARY PATIENT: JEANETH LOPES UNIT: [id number] ADM DATE: 05/18/19 AGE: 68 : 48 SEX: F ROOM/BED: D.1207 AUTHOR: ALANNA,DOC PHYSICIAN: REFERRING PHYSICIAN: JEISON PETTIT MD DATE OF SERVICE: 05/25/19 Discharge Plan Patient Name: JEANETH LOPES Facility: [facility]:[place] : 1950 Planned Disposition: Home Anticipated Discharge Date: 05/20/19 Discharge Date: Expected LOS: 2 Initial Reviewer: [email or web address] Initial Review Date: 05/18/2019 Generated: 05/25/19 1:31 pm Comments DCP- Discharge Planning Updated by [email or web address]: Angelina Mauro on 05/25/19 11:[address] CM met with patient denies any discharge needs. Requesting House calls upon discharge. D/C IMM signed 05/25/19 @ 1220. CM will continue to follow and assist as needed with discharge planning / needs. DCP- Discharge Planning Updated by [email or web address]: Becki Dee on 05/18/19 11:[address] Patient Name: JEANETH OLPES Admission Status: ER Accout number: [id number] Admission Date: 05-18-2019 : 1950 Admission Diagnosis: Attending: JEISON PETTIT Current LOS: 1 Anticipated DC Date: 05-20-2019 Planned Disposition: Home Primary Insurance: [employer] CHOICE PPO [facility] ADVANTAGE Discharge Planning Comments: CM met with patient and her daughter, Venus Russo to complete initial dc planning assessment. CM educated patient and Venus on the CM role and verbal consent given by patient's daughter to complete assessment. Patient had just received IV dilaudid so deferred questions to her daughter. CM verified patient's address, phone number, and emergency contact phone numbers. Patient lives at home alone and Venus reports she is independent and uses no DME devices for assistance. At discharge patient plans to return home and Venus feels this is a safe discharge plan. Venus did request that the patient get house calls arranged for discharge. CM discussed availability of home health, rehab services, and medical equipment. Venus denied known discharge needs at this time. Venus or her sister will transport her home at time of discharge. CM will continue to follow and will assist as needed with dc plans/needs. Lace Winder: Becki Dee RN, [facility] DCPIA - Discharge Planning Initial Assessment Updated by [id number]: Becki Dee on 05/18/19 11:51 am * Is the patient Alert and Oriented? Yes * How many steps to enter\exit or inside your home? none * PCP Dr. Hernandez * Pharmacy [facility] * Preadmission Environment Home Alone * ADLs Independent * Equipment None * List name and contact numbers for known caregivers / representatives who currently or will assist patient after discharge: Ania Lopes - daughter - [phone] Venus Russo - daughter (works in rehab here) - [phone] * Verbal permission to speak to the caregivers and representatives has been obtained from the patient. Yes * Community resources currently utilized None * Additional services required to return to the preadmission environment? Yes * Can the patient safely return to the preadmission environment? No * Has this patient been hospitalized within the prior 30 days at any hospital? No Coverage Notice Reviewer: [id number] - Angelina Mauro Notice Issued Date-Time: 05/25/2019 12:25 Notice Type: IM Discharge Notice Notice Delivered To: Patient Relationship to Patient: Self Home Inspector Name: Delivery Method: HAND - Hand Delivered Hayley Days: Prior Verbal Notification: Recipient Understood Notice: Yes Recipient Signature: Yes Med Rec Note Co-signed by Attending: Coverage Notice Comment: Last DP export: 05/18/19 11:09 am Patient Name: JEANETH LOPES Page [phone] at 1231 All edits/amendments must be made on the electronic document DICTATION DATE: 05/25/19 1231 COMMISSIONER OF INTERNAL REVENUE: MAGI 05/25/19 1231 RPT#: [id number] DC DATE: STATUS: ADM IN [facility] [address] [place] [address] END OF REPORT
--- NOTE | 2019-05-25 13:02 | NUR ---
Nutrition follow-up: Diet advanced to full liquids and advance as tolerated No po intake recorded. Pt with increased pain medication use noted Labs reviewed Wt: 180# RDN will offer nutritional supplement. Following.
--- NOTE | 2019-05-25 13:16 | NUR ---
ADMINISTERED PRN NORCO FOR PAIN LEVEL OF 10/10 STATED BY PT. DENIES OTHER NEEDS AT THIS TIME. WILL REASSESS.
--- NOTE | 2019-05-25 14:19 | NUR ---
I have reviewed this patient and I concur with the Shift Assessment completed by the Licensed Practical Nurse today this shift.
--- NOTE | 2019-05-25 16:22 | NUR ---
PT RESTING UP RIGHT IN BED. STILL COMPLAINING OF PAIN, MEDICATIONS DECREASED TO Q6 HOURS. DENIES ANY OTHER NEEDS AT THIS TIME. WILL CTM.
--- NOTE | 2019-05-25 17:02 | NUR ---
ADMINISTERED MEDICATION, NO TROUBLE SWALLOWING. DENIES OTHER NEEDS. WILL CTM. PT UPRIGHT EATING DINNER AT THIS TIME.
--- NOTE | 2019-05-25 17:53 | NUR ---
RETURNED PHONE TO PT, WAS CHARGING AT NURSES STATION.
--- NOTE | 2019-05-25 17:54 | MORECARE ---
CASE MANAGEMENT DISCHARGE SUMMARY PATIENT: JEANETH LOPES UNIT: [id number] ADM DATE: 05/18/19 AGE: 68 : 48 SEX: F ROOM/BED: D.1207 AUTHOR: ALANNA,DOC PHYSICIAN: REFERRING PHYSICIAN: JEISON PETTIT MD DATE OF SERVICE: 05/25/19 Discharge Plan Patient Name: JEANETH LOPES Facility: [facility]:[place] : 1950 Planned Disposition: Home Anticipated Discharge Date: 05/20/19 Discharge Date: Expected LOS: 2 Initial Reviewer: [email or web address] Initial Review Date: 05/18/2019 Generated: 05/25/19 6:53 pm Comments DCP- Discharge Planning Updated by [email or web address]: Angelina Mauro on 05/25/19 4:[address] Patient daughter Venus doesn't feel like patient is well enough to go home. Venus states that she feels the patient will be right back in hospital if discharged. Daughter spoke with Dr. Galvin and he explained that as long as patient is taking narcotics the surgeon @ [facility] will not place gastric pacemaker. Dr. Galvin has d/c'd questran since patient hasn't had BM in 5 days and ordered citrate. He has also consulted surgery for G-J tube placement for nutrition. CM will continue to follow and assist as needed with discharge planning / needs. DCP- Discharge Planning Updated by [email or web address]: Angelina Mauro on 05/25/19 11:[address] CM met with patient denies any discharge needs. Requesting House calls upon discharge. D/C IMM signed 05/25/19 @ 1220. CM will continue to follow and assist as needed with discharge planning / needs. DCP- Discharge Planning Updated by [email or web address]: Becki Dee on 05/18/19 11:[address] Patient Name: JEANETH LOPES Admission Status: ER Accout number: [id number] Admission Date: 05-18-2019 : 1950 Admission Diagnosis: Attending: JEISON PETTIT Current LOS: 1 Anticipated DC Date: 05-20-2019 Planned Disposition: Home Primary Insurance: [employer] CHOICE PPO [employer] ADVANTAGE Discharge Planning Comments: CM met with patient and her daughter, Venus Russo to complete initial dc planning assessment. CM educated patient and Venus on the CM role and verbal consent given by patient's daughter to complete assessment. Patient had just received IV dilaudid so deferred questions to her daughter. CM verified patient's address, phone number, and emergency contact phone numbers. Patient lives at home alone and Venus reports she is independent and uses no DME devices for assistance. At discharge patient plans to return home and Venus feels this is a safe discharge plan. Venus did request that the patient get house calls arranged for discharge. CM discussed availability of home health, rehab services, and medical equipment. Venus denied known discharge needs at this time. Venus or her sister will transport her home at time of discharge. CM will continue to follow and will assist as needed with dc plans/needs. Teacher Specialist: Becki Dee RN, [facility] DCPIA - Discharge Planning Initial Assessment Updated by [email or web address]: Becki Dee on 05/18/19 11:51 am * Is the patient Alert and Oriented? Yes * How many steps to enter\exit or inside your home? none * PCP Dr. Hernandez * Pharmacy [facility] * Preadmission Environment Home Alone * ADLs Independent * Equipment None * List name and contact numbers for known caregivers / representatives who currently or will assist patient after discharge: Ania Lopes - daughter - [phone] Venus Russo - daughter (works in rehab here) - [phone] * Verbal permission to speak to the caregivers and representatives has been obtained from the patient. Yes * Community resources currently utilized None * Additional services required to return to the preadmission environment? Yes * Can the patient safely return to the preadmission environment? No * Has this patient been hospitalized within the prior 30 days at any hospital? No Coverage Notice Reviewer: [id number] - Angelina Mauro Notice Issued Date-Time: 05/25/2019 12:25 Notice Type: IM Discharge Notice Notice Delivered To: Patient Relationship to Patient: Self Automobile Damage Appraiser Name: Delivery Method: HAND - Hand Delivered Hayley Days: Prior Verbal Notification: Recipient Understood Notice: Yes Recipient Signature: Yes Med Rec Note Co-signed by Attending: Coverage Notice Comment: Last DP export: 05/25/19 11:31 a Patient Name: JEANETH LOPES Page [phone] at 1754 All edits/amendments must be made on the electronic document DICTATION DATE: 05/25/191752 COMMUNITY LIVING SPECIALIST: MAGI 05/25/191752 RPT#: [id number] DC DATE: STATUS: ADM IN [facility] [address] [place] [address] END OF REPORT
--- NOTE | 2019-05-25 19:02 | NUR ---
REPORT PASSED TO SOLE STAINER.
--- NOTE | 2019-05-25 19:17 | NUR ---
PATIENT RESTING IN BED WITH NO S/S OF DISTRESS. PATIENT REQUESTED PAIN MEDS FOR 5/10 BURNING PAIN IN HER ABDOMEN. PATIENT DENIES OTHER NEEDS AT THIS TIME. BED IN LOWEST POSITION AND CALL LIGHT WITHIN REACH. WILL ADMINISTER PAIN MEDS PER ORDERS AND CONTINUE TO MONITOR.
[2019-05-26 00:40] VITALS: BP 179/91
[2019-05-26 04:47] VITALS: BP 176/72
--- NOTE | 2019-05-26 07:40 | NUR ---
PT RESTING SUPINE WITH BED INCLINED, WOKE UP WHEN NURSE ENTERED THE ROOM. DENIES ANY NEEDS AT THIS TIME. PT HAS NO IV, NEEDS VASCULAR CONSULT. PT IS SINUS RHYTHM ON THE HEART MONITOR. DENIES ANY NEEDS AT THIS TIME. WILL CTM.
[2019-05-26 08:18] VITALS: BP 170/68
[2019-05-26 08:18] LABS: HEMATOCRIT 37.1 % (36.0-48.0); HEMOGLOBIN 13.1 g/dL (12-16); MCH 33.2 pg (26.0-34.0); MCHC 35.3 g/dL (31.0-37.0); MEAN PLATELET VOLUME 10.3 fL (7.4-10.4); RBC 3.95 10x6/uL (4.00-5.40); RDW 16.3 % (11.5-14.5)
[2019-05-26 08:25] LABS: MCV 93.9 fL (80.0-100.0); PLATELET COUNT 188 10x3/uL (130-400); WBC 6.2 10x3/uL (4.8-10.8)
[2019-05-26 08:36] LABS: INR 1.63 (0.85-1.17); PROTIME 18.7 SECONDS (11.6-15.0)
[2019-05-26 08:42] LABS: CALC OSMOLALITY 284 mosm/kg (275-300); CALCIUM 8.7 mg/dL (8.5-10.1); CARBON DIOXIDE 30.1 mmol/L (21.0-32.0); CHLORIDE - SERUM 105 mmol/L (98-107); CREATININE - SERUM 0.8 mg/dL (0.6-1.3); GLUCOSE 95 mg/dL (74-106); SODIUM 144 mmol/L (136-145); UREA NITROGEN 7 mg/dL (7-18); eGFR NON AFRICAN AMERICAN 75 mL/min (90-120)
[2019-05-26 10:41] LABS: EOSINOPHILS 2 % (0-7); HYPOCHROMASIA OCC; LYMPHOCYTES 19 % (15-50); MONOCYTES 9 % (2-11); NEUTROPHILS 70 % (40-80); PLATELET ESTIMATE NORMAL; ROULEAUX OCC
[2019-05-26 12:00] VITALS: BP 192/76
--- NOTE | 2019-05-26 12:12 | NUR ---
ADMINISTERED MEDICATION AT THIS TIME, NO TROUBLE SWALLOWING. PT STATES PAIN LEVEL IS NOW A 4/10 AFTER NORCO. DENIES OTHER NEEDS. WILL CTM.
--- NOTE | 2019-05-26 13:17 | NUR ---
PT RESTING COMFORTABLY IN BED WITH EYES CLOSED. BREATHING EVEN AND UNLABORED, NO S/S OF DISTRESS. BED IN LOWEST POSITION, BED RAILS X2, CALL LIGHT WITHIN REACH. WILL CTM.
[2019-05-26 15:06] VITALS: BP 154/76
--- NOTE | 2019-05-26 16:41 | NUR ---
ADMINISTERED MEDICATION AT THIS TIME. NO TROUBLE SWALLOWING. PT INDICATED THAT SHE WATNS TO HOLD OFF ON PRN PAIN MEDICATION LONG POSSIBLE. DENIES OTHER NEEDS AT THIS TIME. WILL CTM.
--- NOTE | 2019-05-26 18:29 | NUR ---
ADMINISTERED PRN PAIN MEDICATION AT THIS TIME FOR PAIN LEVEL OF 8/10. NO TROUBLE SWALLOWNG. WILL BE REASSESSED.
--- NOTE | 2019-05-26 20:19 | NUR ---
PT IN BED RESTING WITH EYES CLOSED. EVEN AND UNALBORED RESPIRATIONS NOTED AT THIS TIME.
[2019-05-26 21:00] VITALS: BP 146/67
[2019-05-27 06:54] LABS: BASOPHILS 0.2 % (0-2); EOSINOPHILS 1.5 % (0-7); HEMATOCRIT 38.1 % (36.0-48.0); IMMATURE GRANULOCYTES 0.2 % (0-5); LYMPHOCYTES 20.9 % (15-50); MCHC 34.1 g/dL (31.0-37.0); MEAN PLATELET VOLUME 9.8 fL (7.4-10.4); MONOCYTES 11.1 % (2-11); NEUTROPHILS 66.1 % (40-80); RDW 16.2 % (11.5-14.5); WBC 5.3 10x3/uL (4.8-10.8)
--- NOTE | 2019-05-27 07:00 | NUR ---
REPORT RECEIVED. ALERT ABLE TO VOICE NEEDS DENIES ANY AT THIS TIME. CL IN REACH. RESP EVEN WITHOUT LABOR. RIGHT WRIST SALINE LOCK INTACT. BED IN LOWEST POSITION AND LOCKED. CAREPLAN REVIEW DONE WITH SAFETY PRECAUTIONS IN PLACE.
[2019-05-27 07:04] LABS: CALCIUM 8.2 mg/dL (8.5-10.1); CARBON DIOXIDE 29.5 mmol/L (21.0-32.0); CHLORIDE - SERUM 101 mmol/L (98-107); CREATININE - SERUM 0.8 mg/dL (0.6-1.3); GLUCOSE 105 mg/dL (74-106); SODIUM 140 mmol/L (136-145); eGFR NON AFRICAN AMERICAN 75 mL/min (90-120)
[2019-05-27 07:10] LABS: CALC OSMOLALITY 277 mosm/kg (275-300); POTASSIUM - SERUM 2.9 mmol/L (3.5-5.1); UREA NITROGEN 10 mg/dL (7-18)
[2019-05-27 07:21] LABS: MCV 90.7 fL (80.0-100.0); PLATELET COUNT 147 10x3/uL (130-400)
[2019-05-27 07:33] LABS: INR 1.25 (0.85-1.17); PROTIME 15.1 SECONDS (11.6-15.0)
[2019-05-27 08:11] VITALS: BP 139/79
--- NOTE | 2019-05-27 10:02 | NUR ---
PRE-OP WAS COMPLETED. SHE WAS TAKEN BY OR AT THIS TIME TO GET PEG TUBE PLACED. SHE HAS HAD POTASSIUM TOTAL OF 60MEQ THIS AM. TWO TABS PER PROTOCOL AND SHE HAD ONE TAB ORDERED BID ROUTINE. SHE IS ALERT AND AWARE OF PROCEDURE AND IS IN STABLE CONDITION UPON LEAVING FOR PROCEDURE.
--- NOTE | 2019-05-27 11:22 | NUR ---
RETURN FROM OR AT THIS TIME WITH C/O PAIN. HYDROCODONE GIVEN PER ORDERS. PEG TUBE IN LEFT UPPER QUAD INTACT. NO BLEEDING AT THIS TIME. VSS 99.3, 156/82 RESP 18. PULSE 87, 98% ON ROOM AIR FOR O2 SAT. SHE HAS BBS THAT ARE CLEAR. ABLE TO FOLLOW DIRECTIONS AND MOVE ALL EXTREMITIES. RESP EVEN WITHOUT LABOR.
--- NOTE | 2019-05-27 11:46 | NUR ---
PEG TUBE PLACEMENT CHECKED BY ASPIRATION AND ASCULATATION. NO RESIDUAL AT THIS TIME. FLUSHED WITH 20ML H20. CONNECTED TO F/C BAG FOR GRAVITY DRAINAGE PER ORDER. FAMILY AT BEDSIDE. CL IN REACH. SIGN PLACED ABOVE BED PER ORDER,
--- NOTE | 2019-05-27 13:05 | NUR ---
NEW ORDER FOR DILUADID 1MG Q [address] CHATTERJEE WHILE HE WAS MAKING ROUNDS DUE TO SHE C/O PAIN AFTER GIVEN HYDROCODONE.
--- NOTE | 2019-05-27 13:57 | NUR ---
DILAUDID 1MG GIVEN IVP AT THIS TIME FOR C/O PAIN AT INCISIONAL SITE
--- NOTE | 2019-05-27 15:20 | OP ---
PATIENT NAME: JEANETH JUDGE MEDICAL RECORD: [id number] :46 LOCATION:D.M3 D.1207 ADMISSION DATE:05/18/19 SURGEON: WANDER SALCEDO MD DATE OF OPERATION: 05/27/2019 PREOPERATIVE DIAGNOSES: 1. Acute malnutrition. 2. Anorexia. 3. Gastroparesis. POSTOPERATIVE DIAGNOSES: 1. Acute malnutrition. 2. Anorexia 3. Gastroparesis. 4. Distal esophageal Schatzki's type ring. 5. Large hiatal hernia. 6. Small gastric bezoar. 7. Small duodenal bulbar bezoar. PROCEDURE: 1. Esophagogastroduodenoscopy with antral biopsies. 2. Percutaneous endoscopic gastrostomy with tube placement, 20-Malawian. 3. Esophageal dilation with a tmielyw-zfm-mlgokqgs balloon to 60-Malawian. SURGEON: Wander Salcedo MD FUEL MANAGEMENT HANDLER: None. BLOOD LOSS: 25 cc. ANESTHESIA: Local with IV sedation. COMPLICATIONS: None. The risks, possible complications, and alternatives to the procedure were explained to the patient. She elects to proceed. We specifically discussed the possible need for a gastrojejunal feeding tube sometime in the future. OPERATIVE COURSE: The patient was conveyed to the endoscopy suite electively on 05/27/2019. IV sedation was induced by the anesthesia staff. A bite block was inserted. A gastroscope was inserted into the mouth. It advanced easily into the hypopharynx. The esophagus was easily intubated as were the stomach and duodenum. Upon withdrawal, retroflexed and angulus views were obtained. Antral biopsies were obtained. We then cleansed the anterior abdominal wall skin. We transilluminated the anterior abdominal wall. I found an area for optimal insertion of the gastrostomy tube and it was in the epigastrium. The area here was infiltrated with a local anesthetic. The skin incision was accomplished. I then advanced an endoscopic snare through the end of the gastrostomy tube. Through the skin incision, I advanced an Angiocath type catheter. Through the Angiocath type catheter, I advanced a wire. This was grasped with a snare. I withdrew the gastroscope and wire out through the mouth. It was attached to a pull-type OPERATIVE REPORT [id number] JEANETH JUDGE gastrostomy tube and then pulled into place. Hub and flange devices were attached. I re-endoscoped the patient's esophagus and stomach. There had been no evidence of false passage or perforation. At the level of the Schatzki stricture, I dilated with a bcqahvo-ylr-nerytspi balloon to 60-Malawian. I then withdrew the balloon dilator and the gastroscope. I reintroduced the gastroscope. The stricture appeared to have been dilated. There was no full thickness injury to the esophagus. The endoscope was then withdrawn under direct vision. TRANSINT:[id number] Voice Confirmation ID: [id number] DOCUMENT ID: [id number] WANDER SALCEDO MD at 1520 CC: MEHRDAD CHATTERJEE MD and BRADY COHEN DO [id number] DICTATION DATE: 05/27/19 1103 ECONOMIC RESEARCH ASSISTANT: 05/27/[address] [facility] [address] [place] [address]
[2019-05-27 15:46] VITALS: BP 151/64
--- NOTE | 2019-05-27 16:00 | NUR ---
NO RESIDUAL AT THIS TIME. PEG TUBE WITH SOME DRAINAGE IN LINE OF GRAVITY TUBING THAT IS LIGHT GREEN IN COLOR. DRESSING REMAINS INTACT WITH NO DRAINAGE NOTED. SHE IS ALERT AND DENIES ANY CURRENT PAIN OR NEEDS. SHE HAS URINATED ONCE SINCE RETURN FROM SURGERY.
--- NOTE | 2019-05-27 16:30 | NUR ---
RECHECK ON POTASSIUM LEVEL IS 3.9 AFTER SHE HAS BEEN TREATED TODAY PER PROTOCOL
--- NOTE | 2019-05-27 18:16 | NUR ---
TOTAL OF 30ML OF LIGHT GREEN DRAINAGE FROM PEG TUBE. SHE URINATED A SECOND TIME OF 100 CC
--- NOTE | 2019-05-27 19:20 | NUR ---
PT IN BED. DENIES NEEDS AT THIS TIME.
[2019-05-27 21:02] VITALS: BP 127/70
--- NOTE | 2019-05-27 21:04 | MORECARE ---
CASE MANAGEMENT DISCHARGE SUMMARY PATIENT: JEANETH LOPES UNIT: [id number] ADM DATE: 05/18/19 AGE: 68 : 48 SEX: F ROOM/BED: D.1207 AUTHOR: ALANNA,DOC PHYSICIAN: REFERRING PHYSICIAN: JEISON PETTIT MD DATE OF SERVICE: 05/27/19 Discharge Plan Patient Name: JEANETH LOPES Facility: [facility]:[place] : 1950 Planned Disposition: Home Anticipated Discharge Date: 05/20/19 Discharge Date: Expected LOS: 2 Initial Reviewer: [email or web address] Initial Review Date: 05/18/2019 Generated: 05/27/19 10:04 pm Comments DCP- Discharge Planning Updated by [email or web address]: Angelina Mauro on 05/27/19 7:[address] Patient had G tube placed today for nutritional support. CM spoke with patient's daughter today Venus and wanted to check to see if they would like HH set up. Venus stated that Dr. Lara had mentioned that she may need a pump for feeding at night while sleeping. CARIN signed for HH/ DME. CM awaiting to see what dietary recommendations are. CM will continue to follow and assist as needed with discharge planning / needs. DCP- Discharge Planning Updated by [email or web address]: Angelina Mauro on 05/25/19 4:[address] Patient daughter Venus doesn't feel like patient is well enough to go home. Venus states that she feels the patient will be right back in hospital if discharged. Daughter spoke with Dr. Galvin and he explained that as long as patient is taking narcotics the surgeon @ [facility] will not place gastric pacemaker. Dr. Galvin has d/c'd questran since patient hasn't had BM in 5 days and ordered citrate. He has also consulted surgery for G-J tube placement for nutrition. CM will continue to follow and assist as needed with discharge planning / needs. DCP- Discharge Planning Updated by [email or web address]: Angelina Mauro on 05/25/19 11:[address] CM met with patient denies any discharge needs. Requesting House calls upon discharge. D/C IMM signed 05/25/19 @ 1220. CM will continue to follow and assist as needed with discharge planning / needs. DCP- Discharge Planning Updated by [email or web address]: Becki Dee on 05/18/19 11:[address] Patient Name: JEANETH LOPES Admission Status: ER Accout number: [id number] Admission Date: 05-18-2019 : 1950 Admission Diagnosis: Attending: JEISON PETTIT Current LOS: 1 Anticipated DC Date: 05-20-2019 Planned Disposition: Home Primary Insurance: [employer] CHO[employer] PPO [facility] ADVANTAGE Discharge Planning Comments: CM met with patient and her daughter, Venus Russo to complete initial dc planning assessment. CM educated patient and Venus on the CM role and verbal consent given by patient's daughter to complete assessment. Patient had just received IV dilaudid so deferred questions to her daughter. CM verified patient's address, phone number, and emergency contact phone numbers. Patient lives at home alone and Venus reports she is independent and uses no DME devices for assistance. At discharge patient plans to return home and Venus feels this is a safe discharge plan. Venus did request that the patient get house calls arranged for discharge. CM discussed availability of home health, rehab services, and medical equipment. Venus denied known discharge needs at this time. Venus or her sister will transport her home at time of discharge. CM will continue to follow and will assist as needed with dc plans/needs. Project Associate: Becki Dee RN, [facility] DCPIA - Discharge Planning Initial Assessment Updated by [email or web address]: Becki Dee on 05/18/19 11:51 am * Is the patient Alert and Oriented? Yes * How many steps to enter\exit or inside your home? none * PCP Dr. Hernandez * [facility] * Preadmission Environment Home Alone * ADLs Independent * Equipment None * List name and contact numbers for known caregivers / representatives who currently or will assist patient after discharge: Ania Lopes - daughter - [phone] Venus Russo - daughter (works in rehab here) - [phone] * Verbal permission to speak to the caregivers and representatives has been obtained from the patient. Yes * Community resources currently utilized None * Additional services required to return to the preadmission environment? Yes * Can the patient safely return to the preadmission environment? No * Has this patient been hospitalized within the prior 30 days at any hospital? No Coverage Notice Reviewer: [email or web address] Rex Mauro Notice Issued Date-Time: 05/25/2019 12:25 Notice Type: IM Discharge Notice Notice Delivered To: Patient Relationship to Patient: Self Communications Senior Associate Name: Delivery Method: HAND - Hand Delivered Hayley Days: Prior Verbal Notification: Recipient Understood Notice: Yes Recipient Signature: Yes Med Rec Note Co-signed by Attending: Coverage Notice Comment: Reviewer: [email or web address] Rex Mauro Notice Issued Date-Time: 05/27/2019 14:00 Notice Type: Patient Choice Letter Notice Delivered To: Family Member Relationship to Patient: Daughter Communications Senior Associate Name: Venus Delivery Method: PHONE - Phone Hayley Days: Prior Verbal Notification: Recipient Understood Notice: Yes Recipient Signature: Yes Med Rec Note Co-signed by Attending: Coverage Notice Comment: carin for dme and hh Last DP export: 05/25/19 4:54 p Patient Name: JEANETH LOPES Page [id number] at 2104 All edits/amendments must be made on the electronic document DICTATION DATE: 05/27/192103 WALLPAPER HANGER: MAGI 05/27/192103 RPT#: [id number] DC DATE: STATUS: ADM IN [facility] [address] [place] [address] END OF REPORT
[2019-05-28] VITALS (8 sets, daily range): BP systolic 129–176; BP diastolic 63–100
[2019-05-28 06:17] LABS: BASOPHILS 0.1 % (0-2); EOSINOPHILS 1.5 % (0-7); HEMATOCRIT 36.3 % (36.0-48.0); LYMPHOCYTES 22.2 % (15-50); MCH 30.7 pg (26.0-34.0); MCHC 33.1 g/dL (31.0-37.0); MEAN PLATELET VOLUME 9.7 fL (7.4-10.4); MONOCYTES 12.8 % (2-11); NEUTROPHILS 63.4 % (40-80); PLATELET COUNT 148 10x3/uL (130-400); RBC 3.91 10x6/uL (4.00-5.40); RDW 16.6 % (11.5-14.5)
[2019-05-28 06:19] LABS: MCV 92.8 fL (80.0-100.0); WBC 7.4 10x3/uL (4.8-10.8)
[2019-05-28 06:23] LABS: INR 1.16 (0.85-1.17); PROTIME 14.3 SECONDS (11.6-15.0)
[2019-05-28 06:35] LABS: ANION GAP 12.9 mmol/L (8-16); CALCIUM 8.6 mg/dL (8.5-10.1); CARBON DIOXIDE 26.7 mmol/L (21.0-32.0); CREATININE - SERUM 0.9 mg/dL (0.6-1.3); MAGNESIUM - SERUM 1.5 mg/dL (1.8-2.4); POTASSIUM - SERUM 3.6 mmol/L (3.5-5.1)
--- NOTE | 2019-05-28 07:00 | NUR ---
SHIFT ASSESSMENT COMPLETED. PT CARE ASSUMED, PT AWAKE AND ALERT, PEG TUBE DRAINING TO GRAVITY. PEG SITE CDI. CALL LIGHT WITHIN REACH, WILL CONTINUE TO OBSERVE.
--- NOTE | 2019-05-28 07:58 | NUR ---
NUTRITION F/U RECEIVED CONSULT FOR PEG TUBE FEEDS. ORDERED GLUCERNA 1.0 TO RUN AT 20 CC/HR. PT STILL RECEIVING FULL LIQUID DIET. WILL MONITOR PT PROGRESS AND ADJUST TUBE FEED RATE NEEDED. WILL NEED TO TRANSITION TO BOLUS FEEDS AT DISCHARGE IF DIET NOT ADVANCED. RD FOLLOWING
--- NOTE | 2019-05-28 11:45 | MORECARE ---
CASE MANAGEMENT DISCHARGE SUMMARY PATIENT: JEANETH LOPES UNIT: [id number] ADM DATE: 05/18/19 AGE: 68 : 48 SEX: F ROOM/BED: D.1207 AUTHOR: ALANNA,DOC PHYSICIAN: REFERRING PHYSICIAN: JEISON PETTIT MD DATE OF SERVICE: 05/28/19 Discharge Plan Patient Name: JEANETH LOPES Facility: [facility]:[place] : 1950 Planned Disposition: Home Anticipated Discharge Date: 05/20/19 Discharge Date: Expected LOS: 2 Initial Reviewer: [email or web address] Initial Review Date: 05/18/2019 Generated: 05/28/19 12:45 pm Comments DCP- Discharge Planning Updated by [email or web address]: Angelina Mauro on 05/27/19 7:[address] Patient had G tube placed today for nutritional support. CM spoke with patient's daughter today Venus and wanted to check to see if they would like HH set up. Venus stated that Dr. Lara had mentioned that she may need a pump for feeding at night while sleeping. CARIN signed for HH/ DME. CM awaiting to see what dietary recommendations are. CM will continue to follow and assist as needed with discharge planning / needs. DCP- Discharge Planning Updated by [email or web address]: Angelina Mauro on 05/25/19 4:[address] Patient daughter Venus doesn't feel like patient is well enough to go home. Venus states that she feels the patient will be right back in hospital if discharged. Daughter spoke with Dr. Galvin and he explained that as long as patient is taking narcotics the surgeon @ [facility] will not place gastric pacemaker. Dr. Galvin has d/c'd questran since patient hasn't had BM in 5 days and ordered citrate. He has also consulted surgery for G-J tube placement for nutrition. CM will continue to follow and assist as needed with discharge planning / needs. DCP- Discharge Planning Updated by [email or web address]: Angelina Mauro on 05/25/19 11:[address] CM met with patient denies any discharge needs. Requesting House calls upon discharge. D/C IMM signed 05/25/19 @ 1220. CM will continue to follow and assist as needed with discharge planning / needs. DCP- Discharge Planning Updated by [id number]: Becki Dee on 05/18/19 11:[address] Patient Name: JEANETH LOPES Admission Status: ER Accout number: [id number] Admission Date: 05-18-2019 : 1950 Admission Diagnosis: Attending: JEISON PETTIT Current LOS: 1 Anticipated DC Date: 05-20-2019 Planned Disposition: Home Primary Insurance: [employer] CHOICE PPO [facility] ADVANTAGE Discharge Planning Comments: CM met with patient and her daughter, Venus Russo to complete initial dc planning assessment. CM educated patient and Venus on the CM role and verbal consent given by patient's daughter to complete assessment. Patient had just received IV dilaudid so deferred questions to her daughter. CM verified patient's address, phone number, and emergency contact phone numbers. Patient lives at home alone and Venus reports she is independent and uses no DME devices for assistance. At discharge patient plans to return home and Venus feels this is a safe discharge plan. Venus did request that the patient get house calls arranged for discharge. CM discussed availability of home health, rehab services, and medical equipment. Venus denied known discharge needs at this time. Venus or her sister will transport her home at time of discharge. CM will continue to follow and will assist as needed with dc plans/needs. Certified Pharmacy Technician: Becki Dee RN, [facility] DCPIA - Discharge Planning Initial Assessment Updated by [email or web address]: Becki Dee on 05/18/19 11:51 am * Is the patient Alert and Oriented? Yes * How many steps to enter\exit or inside your home? none * PCP Dr. Hernandez * [facility]acy [facility] * Preadmission Environment Home Alone * ADLs Independent * Equipment None * List name and contact numbers for known caregivers / representatives who currently or will assist patient after discharge: Ania Lopes - daughter - [phone] Venus Russo - daughter (works in rehab here) - [phone] * Verbal permission to speak to the caregivers and representatives has been obtained from the patient. Yes * Community resources currently utilized None * Additional services required to return to the preadmission environment? Yes * Can the patient safely return to the preadmission environment? No * Has this patient been hospitalized within the prior 30 days at any hospital? No External Providers External Provider: [facility] Next Contact Date: Service Request Date: Service Type: Resolution: Reviewer: Comments: Coverage Notice Reviewer: [id number] Rex Mauro Notice Issued Date-Time: 05/25/2019 12:25 Notice Type: IM Discharge Notice Notice Delivered To: Patient Relationship to Patient: Self Manager Convention Name: Delivery Method: HAND - Hand Delivered Hayley Days: Prior Verbal Notification: Recipient Understood Notice: Yes Recipient Signature: Yes Med Rec Note Co-signed by Attending: Coverage Notice Comment: Reviewer: [id number] Rex Mauro Notice Issued Date-Time: 05/27/2019 14:00 Notice Type: Patient Choice Letter Notice Delivered To: Family Member Relationship to Patient: Daughter Manager Convention Name: Venus Delivery Method: PHONE - Phone Hayley Days: Prior Verbal Notification: Recipient Understood Notice: Yes Recipient Signature: Yes Med Rec Note Co-signed by Attending: Coverage Notice Comment: carin for dme and hh Last DP export: 05/27/19 8:04 p Patient Name: JEANETH LOPES Page 12989 at 1145 All edits/amendments must be made on the electronic document DICTATION DATE: 05/28/19 1145 BINDER OPERATOR: MAGI 05/28/19 1145 RPT#: [id number] DC DATE: STATUS: ADM IN [facility] [address] [place] [address] END OF REPORT
--- NOTE | 2019-05-28 12:11 | MORECARE ---
CASE MANAGEMENT DISCHARGE SUMMARY PATIENT: JEANETH LOPES UNIT: [id number] ADM DATE: 05/18/19 AGE: 68 : 48 SEX: F ROOM/BED: D.1207 AUTHOR: ALANNA,DOC PHYSICIAN: REFERRING PHYSICIAN: JEISON PETTIT MD DATE OF SERVICE: 05/28/19 Discharge Plan Patient Name: JEANETH LOPES Facility: [facility]:[place] : 1950 Planned Disposition: Home Anticipated Discharge Date: 05/20/19 Discharge Date: Expected LOS: 2 Initial Reviewer: [email or web address] Initial Review Date: 05/18/2019 Generated: 05/28/19 1:11 pm Comments DCP- Discharge Planning Updated by [id number]: Angelina Mauro on 05/27/19 7:[address] Patient had G tube placed today for nutritional support. CM spoke with patient's daughter today Venus and wanted to check to see if they would like HH set up. Venus stated that Dr. Lara had mentioned that she may need a pump for feeding at night while sleeping. CARIN signed for HH/ DME. CM awaiting to see what dietary recommendations are. CM will continue to follow and assist as needed with discharge planning / needs. DCP- Discharge Planning Updated by [id number]: Angelina Mauro on 05/25/19 4:[address] Patient daughter Venus doesn't feel like patient is well enough to go home. Venus states that she feels the patient will be right back in hospital if discharged. Daughter spoke with Dr. Galvin and he explained that as long as patient is taking narcotics the surgeon @ [facility] will not place gastric pacemaker. Dr. Galvin has d/c'd questran since patient hasn't had BM in 5 days and ordered citrate. He has also consulted surgery for G-J tube placement for nutrition. CM will continue to follow and assist as needed with discharge planning / needs. DCP- Discharge Planning Updated by [email or web address]: Angelina Mauro on 05/25/19 11:[address] CM met with patient denies any discharge needs. Requesting House calls upon discharge. D/C IMM signed 05/25/19 @ 1220. CM will continue to follow and assist as needed with discharge planning / needs. DCP- Discharge Planning Updated by [email or web address]: Becki Dee on 05/18/19 11:[address] Patient Name: JEANETH LOPES Admission Status: ER Accout number: [id number] Admission Date: 05-18-2019 : 1950 Admission Diagnosis: Attending: JEISON PETTIT Current LOS: 1 Anticipated DC Date: 05-20-2019 Planned Disposition: Home Primary Insurance: [employer] CHOICE PPO [facility] ADVANTAGE Discharge Planning Comments: CM met with patient and her daughter, Venus Russo to complete initial dc planning assessment. CM educated patient and Venus on the CM role and verbal consent given by patient's daughter to complete assessment. Patient had just received IV dilaudid so deferred questions to her daughter. CM verified patient's address, phone number, and emergency contact phone numbers. Patient lives at home alone and Venus reports she is independent and uses no DME devices for assistance. At discharge patient plans to return home and Venus feels this is a safe discharge plan. Venus did request that the patient get house calls arranged for discharge. CM discussed availability of home health, rehab services, and medical equipment. Venus denied known discharge needs at this time. Venus or her sister will transport her home at time of discharge. CM will continue to follow and will assist as needed with dc plans/needs. Yarn Texturing Machine Operator: Becki Dee RN, [facility] DCPIA - Discharge Planning Initial Assessment Updated by [email or web address]: Becki Dee on 05/18/19 11:51 am * Is the patient Alert and Oriented? Yes * How many steps to enter\exit or inside your home? none * PCP Dr. Hernandez * [facility] * Preadmission Environment Home Alone * ADLs Independent * Equipment None * List name and contact numbers for known caregivers / representatives who currently or will assist patient after discharge: Ania Lopes - daughter - [phone] Venus Russo - daughter (works in rehab here) - [phone] * Verbal permission to speak to the caregivers and representatives has been obtained from the patient. Yes * Community resources currently utilized None * Additional services required to return to the preadmission environment? Yes * Can the patient safely return to the preadmission environment? No * Has this patient been hospitalized within the prior 30 days at any hospital? No External Providers External Provider: [facility] Next Contact Date: Service Request Date: Service Type: Resolution: Reviewer: Comments: Coverage Notice Reviewer: [id number] Rex Mauro Notice Issued Date-Time: 05/25/2019 12:25 Notice Type: IM Discharge Notice Notice Delivered To: Patient Relationship to Patient: Self Cart Attendant Name: Delivery Method: HAND - Hand Delivered Hayley Days: Prior Verbal Notification: Recipient Understood Notice: Yes Recipient Signature: Yes Med Rec Note Co-signed by Attending: Coverage Notice Comment: Reviewer: [email or web address] Rex Mauro Notice Issued Date-Time: 05/27/2019 14:00 Notice Type: Patient Choice Letter Notice Delivered To: Family Member Relationship to Patient: Daughter Cart Attendant Name: Venus Delivery Method: PHONE - Phone Hayley Days: Prior Verbal Notification: Recipient Understood Notice: Yes Recipient Signature: Yes Med Rec Note Co-signed by Attending: Coverage Notice Comment: carin for dme and hh Last DP export: 05/28/19 10:45 a Patient Name: JEANETH LOPES Page 48869 at 1211 All edits/amendments must be made on the electronic document DICTATION DATE: 05/28/19 121 ENAMEL DRIER: MAGI 05/28/19 1211 RPT#: [id number] DC DATE: STATUS: ADM IN [facility] [address] [place] [address] END OF REPORT
--- NOTE | 2019-05-28 17:39 | MORECARE ---
CASE MANAGEMENT DISCHARGE SUMMARY PATIENT: JEANETH LOPES UNIT: [id number] ADM DATE: 05/18/19 AGE: 68 : 48 SEX: F ROOM/BED: D.1207 AUTHOR: ALANNA,DOC PHYSICIAN: REFERRING PHYSICIAN: JEISON PETTIT MD DATE OF SERVICE: 05/28/19 Discharge Plan Patient Name: JEANETH LOPES Facility: [facility]:[place] : 1950 Planned Disposition: Home Anticipated Discharge Date: 05/20/19 Discharge Date: Expected LOS: 2 Initial Reviewer: [email or web address] Initial Review Date: 05/18/2019 Generated: 05/28/19 6:38 pm Comments DCP- Discharge Planning Updated by [email or web address]: Angelina Mauro on 05/28/19 4:[address] CM called and spoke with David regarding tube feeding and supplies. Faxed over records CM asked if they could please let me know if supplies would be covered under patient's insurance and please give us a quote so CM can inform patient. Office stated that Laura Coyne would be calling us back with quote. TERRY called multiple agencies. TERRY was informed that [facility] is a provider for [employer]. CM contacted Anali @ [facility] and faxed records. Anali stated that they could possibly admit Tuesday 05/29 and definitely Sat 05/30 CM faxed over records to [facility]. TERRY spoke with Dr. Galvin regarding feeding and he referred it back to dietary. Dr. Hooks stated that he thought the tube was placed for more of an outlet for decompression to help with nausea / vomiting. CM supervisor assembly stock spoke with dietary and got orders for tube feeding and sent update to [facility]. Laura Coyne with [facility] will be here to educate patient today. CM spoke with patient and daughter Venus regarding Head of bed needing to be elevated 30 degrees. Patient requested a wedge for her bed v/s a hospital bed. TERRY was told that the only DME that carries equipment of this kind was [facility]. [employer] [facility] notified and they stated that it was currently out of stock of the 12 inch wedge which would elevate 30 degrees. Insurance will not cover it and the cost is $50.00. [employer] stated that [employer] might have it in stock. CM called [facility] and the cost was 100.00. CM spoke with Venus patient's daughter and she stated that she would just put the head of patients bed on blocks for elevation. While CM was speaking to daughter she stated that she had spoke with Dr. Galvin. and there wasn't any plans for discharge for a couple of days. CM called Dr. Galvin and left message regarding discharge planning. Laura Coyne called and stated that she came to see patient for teaching and patient was severely nauseated and complaining of pain along with the fact that tube feeding have not been started yet. Laura Coyne stated she would come back tomorrow to educate. CM asked for nunes quote again so CM can let patient know about cost. Laura Coyne stated she would email to CM later. CM will continue to follow and assist as needed with discharge planning / needs. DCP- Discharge Planning Updated by [id number]: Angelina Mauro on 05/27/19 7:[address] Patient had G tube placed today for nutritional support. CM spoke with patient's daughter today Venus and wanted to check to see if they would like HH set up. Venus stated that Dr. Lara had mentioned that she may need a pump for feeding at night while sleeping. [facility] signed for HH/ DME. CM awaiting to see what dietary recommendations are. CM will continue to follow and assist as needed with discharge planning / needs. DCP- Discharge Planning Updated by [email or web address]: Angelina Mauro on 05/25/19 4:[address] Patient daughter Venus doesn't feel like patient is well enough to go home. Venus states that she feels the patient will be right back in hospital if discharged. Daughter spoke with Dr. Galvin and he explained that as long as patient is taking narcotics the surgeon @ [facility] will not place gastric pacemaker. Dr. Galvin has d/c'd questran since patient hasn't had BM in 5 days and ordered citrate. He has also consulted surgery for G-J tube placement for nutrition. CM will continue to follow and assist as needed with discharge planning / needs. DCP- Discharge Planning Updated by [id number]: Angelina Mauro on 05/25/19 11:[address] CM met with patient denies any discharge needs. Requesting House calls upon discharge. D/C IMM signed 05/25/19 @ 1220. CM will continue to follow and assist as needed with discharge planning / needs. DCP- Discharge Planning Updated by [email or web address]: Becki Dee on 05/18/19 11:[address] Patient Name: JEANETH LOPES Admission Status: ER Accout number: [id number] Admission Date: 05-18-2019 : 1950 Admission Diagnosis: Attending: JEISON PETTIT Current LOS: 1 Anticipated DC Date: 05-20-2019 Planned Disposition: Home Primary Insurance: [employer] P[employer] Discharge Planning Comments: CM met with patient and her daughter, Venus Russo to complete initial dc planning assessment. CM educated patient and Venus on the CM role and verbal consent given by patient's daughter to complete assessment. Patient had just received IV dilaudid so deferred questions to her daughter. CM verified patient's address, phone number, and emergency contact phone numbers. Patient lives at home alone and Venus reports she is independent and uses no DME devices for assistance. At discharge patient plans to return home and Venus feels this is a safe discharge plan. Venus did request that the patient get house calls arranged for discharge. CM discussed availability of home health, rehab services, and medical equipment. Venus denied known discharge needs at this time. Venus or her sister will transport her home at time of discharge. CM will continue to follow and will assist as needed with dc plans/needs. Auditor: Becki Dee RN, [facility] DCPIA - Discharge Planning Initial Assessment Updated by [email or web address]: Becki Dee on 05/18/19 11:51 am * Is the patient Alert and Oriented? Yes * How many steps to enter\exit or inside your home? none * PCP Dr. Hernandez * Pharmacy [facility] * Preadmission Environment Home Alone * ADLs Independent * Equipment None * List name and contact numbers for known caregivers / representatives who currently or will assist patient after discharge: Ania Lopes - daughter - [phone] Venus Russo - daughter (works in rehab here) - [phone] * Verbal permission to speak to the caregivers and representatives has been obtained from the patient. Yes * Community resources currently utilized None * Additional services required to return to the preadmission environment? Yes * Can the patient safely return to the preadmission environment? No * Has this patient been hospitalized within the prior 30 days at any hospital? No Coverage Notice Reviewer: [email or web address] Mauro Notice Issued Date-Time: 05/25/2019 12:25 Notice Type: IM Discharge Notice Notice Delivered To: Patient Relationship to Patient: Self Anti Air Warfare Operations Officer Name: Delivery Method: HAND - Hand Delivered Hayley Days: Prior Verbal Notification: Recipient Understood Notice: Yes Recipient Signature: Yes Med Rec Note Co-signed by Attending: Coverage Notice Comment: Reviewer: [email or web address] Mauro Notice Issued Date-Time: 05/27/2019 14:00 Notice Type: Patient Choice Letter Notice Delivered To: Family Member Relationship to Patient: Daughter Anti Air Warfare Operations Officer Name: Venus Delivery Method: PHONE - Phone Hayley Days: Prior Verbal Notification: Recipient Understood Notice: Yes Recipient Signature: Yes Med Rec Note Co-signed by Attending: Coverage Notice Comment: [facility] for dme and hh Last DP export: 05/28/19 11:11 a Patient Name: JEANETH LOPES Page [id number] at 1739 All edits/amendments must be made on the electronic document DICTATION DATE: 05/28/191737 RADIOPHARMACIST: MAGI 05/28/191737 RPT#: [id number] DC DATE: STATUS: ADM IN [facility] [address] [place] [address] END OF REPORT
--- NOTE | 2019-05-28 17:48 | NUR ---
C/O PAIN TO THIS NURSE AND DOV BUENROSTRO PRIMARY NURSE. ASKED FOR ANOTHER PAIN PILL, DANIELLE EXPLAINED TO HER THAT HER NEXT ONE DUE WAS AT 2049. I ENCOURAGED PATIENT TO WALK TO TRY AND PASS SOME GAS. SHE WALKED WITH THIS NURSE TO NURSE EXIT DOOR BY NURSE STATION AND TO TIME CLOCK AND BACK. TOELRATED WELL. I UN-CLAMPED THAT PEG TUBE AND THERE WAS ONLY 5 CC FLUID IN IT. RE-CLAMPED. ENCOURGED PATIENT TO AMBULATE AGAIN AT BEDTIME BEFORE TUBE FEEDING STARTS.
--- NOTE | 2019-05-28 18:20 | NUR ---
PATIENT TO AMBULATE IN HALLWAY WITH THIS NURSE X2 FOR LENGHT. ASSISTED TO BATHROOM. VOIDS EASILY AND PASSING FLATUS.
--- NOTE | 2019-05-28 18:57 | NUR ---
PT IN BED RESTING WITH EYES CLOSED. EVEN AND UNALBORED RESPIRATIONS NOTED AT THIS TIME.
[2019-05-29 00:50] VITALS: BP 140/80
[2019-05-29 05:30] VITALS: BP 130/75
[2019-05-29 07:01] LABS: INR 1.05 (0.85-1.17); PROTIME 13.2 SECONDS (11.6-15.0)
--- NOTE | 2019-05-29 07:33 | NUR ---
PT RESTING, EYES CLOSED. RR EVEN AND UNLABORED. NO DISTRESS NOTED. WILL CONTINUE TO MONITOR.
[2019-05-29 08:13] LABS: BASOPHILS 0.2 % (0-2); EOSINOPHILS 1.5 % (0-7); HEMATOCRIT 37.9 % (36.0-48.0); HEMOGLOBIN 12.8 g/dL (12-16); IMMATURE GRANULOCYTES 0.1 % (0-5); LYMPHOCYTES 14.2 % (15-50); MCH 31.6 pg (26.0-34.0); MCHC 33.8 g/dL (31.0-37.0); MCV 93.6 fL (80.0-100.0); MONOCYTES 10.3 % (2-11); NEUTROPHILS 73.7 % (40-80); PLATELET COUNT 154 10x3/uL (130-400); RBC 4.05 10x6/uL (4.00-5.40); RDW 16.4 % (11.5-14.5); WBC 9.1 10x3/uL (4.8-10.8)
--- NOTE | 2019-05-29 08:25 | NUR ---
PT C/O ABDOMINAL PAIN. NORCO GIVEN AT 0530. TUBE FEEDING STOPPED FOR TIME BEING. SPOKE WITH RENETTA FAUST ABOUT PAIN AND TUBE FEEDINGS. ORDER TO BE REVISED.
[2019-05-29 08:32] LABS: CALC OSMOLALITY 278 mosm/kg (275-300); CALCIUM 8.5 mg/dL (8.5-10.1); CARBON DIOXIDE 23.6 mmol/L (21.0-32.0); CHLORIDE - SERUM 102 mmol/L (98-107); CREATININE - SERUM 0.8 mg/dL (0.6-1.3); GLUCOSE 105 mg/dL (74-106); POTASSIUM - SERUM 3.9 mmol/L (3.5-5.1); SODIUM 139 mmol/L (136-145); UREA NITROGEN 16 mg/dL (7-18); eGFR NON AFRICAN AMERICAN 75 mL/min (90-120)
--- NOTE | 2019-05-29 08:41 | NUR ---
NUTRITION F/U SPOKE WITH NURSING AND NURSE PRACTIONER. REVISED TUBE FEEDS TO RUN FROM 6 PM TO 6 AM WITH 20 CC H2O FLUSH Q 2 HOURS. PT TO CONTINUE FULL LIQUID DIET. RD FOLLOWING
[2019-05-29 08:51] VITALS: BP 156/78
[2019-05-29 12:01] VITALS: BP 149/84
--- NOTE | 2019-05-29 15:29 | MORECARE ---
CASE MANAGEMENT DISCHARGE SUMMARY PATIENT: JEANETH LOPES UNIT: [id number] ADM DATE: 05/18/19 AGE: 68 : [birth year] SEX: F ROOM/BED: D.1207 AUTHOR: ALANNA,DOC PHYSICIAN: REFERRING PHYSICIAN: JEISON PETTIT MD DATE OF SERVICE: 05/29/19 Discharge Plan Patient Name: JEANETH LOPES Facility: [facility]:[place] : 1950 Planned Disposition: Home Anticipated Discharge Date: 05/20/19 Discharge Date: Expected LOS: 2 Initial Reviewer: [email or web address] Initial Review Date: 05/18/2019 Generated: 05/29/19 4:29 pm Comments DCP- Discharge Planning Updated by [email or web address]: Bibiana Garcia on 05/29/19 2:[address] LATE ENTRY 0810 CONTACT LENS ASSISTANT ADVISED THE CM THAT THE PATIENT WOULD NOT BE DISCHARGE TODAY. THE PATIENT CONTINUES TO COMPLAIN OF PAIN. THE DAUGHTER ASK FOR PHYSICAL THERAPY CONSULT. CONTACT LENS ASSISTANT ALSO SPOKE WITH THE DIETITIAN. FEEDINGS CHANGED TO 1800- 0600 OVERNIGHT VIA PUMP. DCP- Discharge Planning Updated by [id number]: Angelina Mauro on 05/28/19 4:[address] CM called and spoke with David regarding tube feeding and supplies. Faxed over records CM asked if they could please let me know if supplies would be covered under patient's insurance and please give us a quote so CM can inform patient. Office stated that Hayley would be calling us back with quote. TERRY called multiple agencies. TERRY was informed that [facility] is a provider for [employer]. TERRY contacted Anali @ [facility] and faxed records. Anali stated that they could possibly admit Tuesday 05/29 and definitely Sat 05/30 CM faxed over records to [facility]. TERRY spoke with Dr. Galvin regarding feeding and he referred it back to dietary. Dr. Hooks stated that he thought the tube was placed for more of an outlet for decompression to help with nausea / vomiting. CM brake repair supervisor spoke with dietary and got orders for tube feeding and sent update to [facility]. Laura Coyne with [facility] will be here to educate patient today. TERRY spoke with patient and daughter Venus regarding Head of bed needing to be elevated 30 degrees. Patient requested a wedge for her bed v/s a hospital bed. CM was told that the only DME that carries equipment of this kind was [employer] [employer] notified and they stated that it was currently out of stock of the 12 inch wedge which would elevate 30 degrees. Insurance will not cover it and the cost is $50.00. [employer] stated that [employer] might have it in stock. CM called [facility] and the cost was 100.00. CM spoke with Venus patient's daughter and she stated that she would just put the head of patients bed on blocks for elevation. While CM was speaking to daughter she stated that she had spoke with Dr. Galvin. and there wasn't any plans for discharge for a couple of days. CM called Dr. Galvin and left message regarding discharge planning. Laura Coyne called and stated that she came to see patient for teaching and patient was severely nauseated and complaining of pain along with the fact that tube feeding have not been started yet. Laura Coyne stated she would come back tomorrow to educate. CM asked for nunes quote again so CM can let patient know about cost. Laura Coyne stated she would email to CM later. CM will continue to follow and assist as needed with discharge planning / needs. DCP- Discharge Planning Updated by [id number]: Angelina Mauro on 05/27/19 7:[address] Patient had G tube placed today for nutritional support. CM spoke with patient's daughter today Venus and wanted to check to see if they would like HH set up. Venus stated that Dr. Lara had mentioned that she may need a pump for feeding at night while sleeping. [facility] signed for HH/ DME. CM awaiting to see what dietary recommendations are. CM will continue to follow and assist as needed with discharge planning / needs. DCP- Discharge Planning Updated by [email or web address]: Angelina Mauro on 05/25/19 4:[address] Patient daughter Venus doesn't feel like patient is well enough to go home. Venus states that she feels the patient will be right back in hospital if discharged. Daughter spoke with Dr. Galvin and he explained that as long as patient is taking narcotics the surgeon @ [facility] will not place gastric pacemaker. Dr. Galvin has d/c'd questran since patient hasn't had BM in 5 days and ordered citrate. He has also consulted surgery for G-J tube placement for nutrition. CM will continue to follow and assist as needed with discharge planning / needs. DCP- Discharge Planning Updated by [id number]: Angelina Mauro on 05/25/19 11:[address] CM met with patient denies any discharge needs. Requesting House calls upon discharge. D/C IMM signed 05/25/19 @ 1220. CM will continue to follow and assist as needed with discharge planning / needs. DCP- Discharge Planning Updated by [email or web address]: Becki Dee on 05/18/19 11:[address] Patient Name: JEANETH LOPES Admission Status: ER Accout number: [id number] Admission Date: 05-18-2019 : 1950 Admission Diagnosis: Attending: JEISON PETTIT Current LOS: 1 Anticipated DC Date: 05-20-2019 Planned Disposition: Home Primary Insurance: [employer] CHO[employer] PPO [facility] ADVANTAGE Discharge Planning Comments: CM met with patient and her daughter, Venus Russo to complete initial dc planning assessment. CM educated patient and Venus on the CM role and verbal consent given by patient's daughter to complete assessment. Patient had just received IV dilaudid so deferred questions to her daughter. CM verified patient's address, phone number, and emergency contact phone numbers. Patient lives at home alone and Venus reports she is independent and uses no DME devices for assistance. At discharge patient plans to return home and Venus feels this is a safe discharge plan. Venus did request that the patient get house calls arranged for discharge. CM discussed availability of home health, rehab services, and medical equipment. Venus denied known discharge needs at this time. Venus or her sister will transport her home at time of discharge. CM will continue to follow and will assist as needed with dc plans/needs. Doll Wigs Hackler: Becki Dee RN, [facility] DCPIA - Discharge Planning Initial Assessment Updated by [id number]: Becki Dee on 05/18/19 11:51 am * Is the patient Alert and Oriented? Yes * How many steps to enter\exit or inside your home? none * PCP Dr. Hernandez * Pharmacy [facility] * Preadmission Environment Home Alone * ADLs Independent * Equipment None * List name and contact numbers for known caregivers / representatives who currently or will assist patient after discharge: Ania Lopes - daughter - [phone] Venus Russo - daughter (works in rehab here) - [phone] * Verbal permission to speak to the caregivers and representatives has been obtained from the patient. Yes * Community resources currently utilized None * Additional services required to return to the preadmission environment? Yes * Can the patient safely return to the preadmission environment? No * Has this patient been hospitalized within the prior 30 days at any hospital? No Coverage Notice Reviewer: [email or web address] Mauro Notice Issued Date-Time: 05/25/2019 12:25 Notice Type: IM Discharge Notice Notice Delivered To: Patient Relationship to Patient: Self Client Services Specialist Name: Delivery Method: HAND - Hand Delivered Hayley Days: Prior Verbal Notification: Recipient Understood Notice: Yes Recipient Signature: Yes Med Rec Note Co-signed by Attending: Coverage Notice Comment: Reviewer: [email or web address] Mauro Notice Issued Date-Time: 05/27/2019 14:00 Notice Type: Patient Choice Letter Notice Delivered To: Family Member Relationship to Patient: Daughter Client Services Specialist Name: Venus Delivery Method: PHONE - Phone Hayley Days: Prior Verbal Notification: Recipient Understood Notice: Yes Recipient Signature: Yes Med Rec Note Co-signed by Attending: Coverage Notice Comment: carin for dme and hh Last DP export: 05/28/19 4:38 p Patient Name: JEANETH LOPES Page [id number] at 1529 All edits/amendments must be made on the electronic document DICTATION DATE: 05/29/191528 CFO CONTROLLER: MAGI 05/29/19 152 RPT#: [id number] DC DATE: STATUS: ADM IN [facility] [address] [place] [address] END OF REPORT
--- NOTE | 2019-05-29 17:01 | NUR ---
PT TURNED TO LEFT SIDE.
[2019-05-29 17:09] VITALS: BP 120/53
--- NOTE | 2019-05-29 17:14 | NUR ---
I have reviewed this patient and I concur with the Shift Assessment completed by the Licensed Practical Nurse today this shift.
--- NOTE | 2019-05-29 17:28 | MORECARE ---
CASE MANAGEMENT DISCHARGE SUMMARY PATIENT: JEANETH LOPES UNIT: [id number] ADM DATE: 05/18/19 AGE: 68 : 48 SEX: F ROOM/BED: D.1207 AUTHOR: ALANNA,DOC PHYSICIAN: REFERRING PHYSICIAN: JEISON PETTIT MD DATE OF SERVICE: 05/29/19 Discharge Plan Patient Name: JEANETH LOPES Facility: [facility]:[place] : 1950 Planned Disposition: Home Anticipated Discharge Date: 05/20/19 Discharge Date: Expected LOS: 2 Initial Reviewer: [email or web address] Initial Review Date: 05/18/2019 Generated: 05/29/19 6:28 pm Comments DCP- Discharge Planning Updated by [email or web address]: Bibiana Garcia on 05/29/19 4:[address] LATE ENTRY 1230 [facility], HOME HEALTH PROVIDER, HAS THE PATIENT ON THE SCHEDULE FOR THIS WEEKEND PER MIKEY. SHE REQUESTED CM CALL THIS LATE PM REGARDING PROJECTED DATE OF DISCHARGE. 1400 CM CALLED TO NOTIFY MELISSA THIS AFTERNOON TO ADVISE THE PLAN IS FOR DISCHARGE SATURDAY. 1430 MOE FROM [place] TELEPHONED. CM ADVISED THE PLAN IS FOR DISCHARGE THIS WEEKEND. CM TO CALL [phone] WHEN PATIENT IS DISCHARGED. [facility] WILL DELIVER SUPPLIES IE. FEEDING AND PUMP TO THE PATIENT WHEN DISCHARGED. CM SPOKE W/ MECCA THE DAUGHTER TO ADVISE OF DAVID'S PLAN. DCP- Discharge Planning Updated by [email or web address]: Bibiana Garcia on 05/29/19 2:[address] LATE ENTRY 0810 OPERATIONS INTERN ADVISED THE CM THAT THE PATIENT WOULD NOT BE DISCHARGE TODAY. THE PATIENT CONTINUES TO COMPLAIN OF PAIN. THE DAUGHTER ASK FOR PHYSICAL THERAPY CONSULT. SAMIR ALSO SPOKE WITH THE DIETITIAN. FEEDINGS CHANGED TO 1800- 0600 OVERNIGHT VIA PUMP. DCP- Discharge Planning Updated by [email or web address]: Angelina Mauro on 05/28/19 4:[address] CM called and spoke with David regarding tube feeding and supplies. Faxed over records CM asked if they could please let me know if supplies would be covered under patient's insurance and please give us a quote so CM can inform patient. Office stated that Laura Coyne would be calling us back with quote. TERRY called multiple HH agencies. TERRY was informed that [facility] is a provider for [employer]. CM contacted Anali @ [place] and faxed records. Anali stated that they could possibly admit Tuesday 05/29 and definitely Sat 05/30 CM faxed over records to [place]. TERRY spoke with Dr. Galvin regarding feeding and he referred it back to dietary. Dr. Hooks stated that he thought the tube was placed for more of an outlet for decompression to help with nausea / vomiting. CM specialty manufacturing supervisor spoke with dietary and got orders for tube feeding and sent update to [facility]. Laura Coyne with [facility] will be here to educate patient today. CM spoke with patient and daughter Mecca regarding Head of bed needing to be elevated 30 degrees. Patient requested a wedge for her bed v/s a hospital bed. CM was told that the only DME that carries equipment of this kind was [employer]. [employer] notified and they stated that it was currently out of stock of the 12 inch wedge which would elevate 30 degrees. Insurance will not cover it and the cost is $50.00. [employer] stated that [employer] might have it in stock. CM called [facility] and the cost was 100.00. CM spoke with Mecca patient's daughter and she stated that she would just put the head of patients bed on blocks for elevation. While CM was speaking to daughter she stated that she had spoke with Dr. Galvin. and there wasn't any plans for discharge for a couple of days. CM called Dr. Galvin and left message regarding discharge planning. Laura Coyne called and stated that she came to see patient for teaching and patient was severely nauseated and complaining of pain along with the fact that tube feeding have not been started yet. Laura Coyne stated she would come back tomorrow to educate. CM asked for nunes quote again so CM can let patient know about cost. Laura Coyne stated she would email to later. CM will continue to follow and assist as needed with discharge planning / needs. DCP- Discharge Planning Updated by [id number]: Angelina Mauro on 05/27/19 7:[address] Patient had G tube placed today for nutritional support. TERRY spoke with patient's daughter today Mecca and wanted to check to see if they would like HH set up. Mecca stated that Dr. Lara had mentioned that she may need a pump for feeding at night while sleeping. [facility] signed for HH/ DME. CM awaiting to see what dietary recommendations are. CM will continue to follow and assist as needed with discharge planning / needs. DCP- Discharge Planning Updated by [email or web address]: Angelina Mauro on 05/25/19 4:[address] Patient daughter Mecca doesn't feel like patient is well enough to go home. Mecca states that she feels the patient will be right back in hospital if discharged. Daughter spoke with Dr. Galvin and he explained that as long as patient is taking narcotics the surgeon @ [facility] will not place gastric pacemaker. Dr. Galvin has d/c'd questran since patient hasn't had BM in 5 days and ordered citrate. He has also consulted surgery for G-J tube placement for nutrition. CM will continue to follow and assist as needed with discharge planning / needs. DCP- Discharge Planning Updated by [id number]: Angelina Mauro on 05/25/19 11:[address] CM met with patient denies any discharge needs. Requesting House calls upon discharge. D/C IMM signed 05/25/19 @ 1220. CM will continue to follow and assist as needed with discharge planning / needs. DCP- Discharge Planning Updated by [id number]: Becki Dee on 05/18/19 11:[address] Patient Name: JEANETH LOPES Admission Status: ER Accout number: [id number] Admission Date: 05-18-2019 : 1950 Admission Diagnosis: Attending: JEISON PETTIT Current LOS: 1 Anticipated DC Date: 05-20-2019 Planned Disposition: Home Primary Insurance: [employer] CHOICE PPO MCR ADVANTAGE Discharge Planning Comments: CM met with patient and her daughter, Mecca Russo to complete initial dc planning assessment. CM educated patient and Mecca on the CM role and verbal consent given by patient's daughter to complete assessment. Patient had just received IV dilaudid so deferred questions to her daughter. CM verified patient's address, phone number, and emergency contact phone numbers. Patient lives at home alone and Mecca reports she is independent and uses no DME devices for assistance. At discharge patient plans to return home and Mecca feels this is a safe discharge plan. Mecca did request that the patient get house calls arranged for discharge. CM discussed availability of home health, rehab services, and medical equipment. Mecca denied known discharge needs at this time. Mecca or her sister will transport her home at time of discharge. CM will continue to follow and will assist as needed with dc plans/needs. Fashion Marketer: Becki Dee RN, [facility] DCPIA - Discharge Planning Initial Assessment Updated by [email or web address]: Becki Dee on 05/18/19 11:51 am * Is the patient Alert and Oriented? Yes * How many steps to enter\exit or inside your home? none * PCP Dr. Hernandez * Pharmacy [facility] * Preadmission Environment Home Alone * ADLs Independent * Equipment None * List name and contact numbers for known caregivers / representatives who currently or will assist patient after discharge: Ania Lopes - daughter - [phone] Mecca Russo - daughter (works in rehab here) - [phone] * Verbal permission to speak to the caregivers and representatives has been obtained from the patient. Yes * Community resources currently utilized None * Additional services required to return to the preadmission environment? Yes * Can the patient safely return to the preadmission environment? No * Has this patient been hospitalized within the prior 30 days at any hospital? No Coverage Notice Reviewer: [id number] Rex Mauro Notice Issued Date-Time: 05/25/2019 12:25 Notice Type: IM Discharge Notice Notice Delivered To: Patient Relationship to Patient: Self Crm Manager Name: Delivery Method: HAND - Hand Delivered Hayley Days: Prior Verbal Notification: Recipient Understood Notice: Yes Recipient Signature: Yes Med Rec Note Co-signed by Attending: Coverage Notice Comment: Reviewer: [id number] Rex Mauro Notice Issued Date-Time: 05/27/2019 14:00 Notice Type: Patient Choice Letter Notice Delivered To: Family Member Relationship to Patient: Daughter Crm Manager Name: Mecca Delivery Method: PHONE - Phone Hayley Days: Prior Verbal Notification: Recipient Understood Notice: Yes Recipient Signature: Yes Med Rec Note Co-signed by Attending: Coverage Notice Comment: [facility] for dme and hh Last DP export: 05/29/19 2:29 p Patient Name: JEANETH LOPES Page [id number] at 1728 All edits/amendments must be made on the electronic document DICTATION DATE: 05/29/191727 DONKEY RIDE OPERATOR: MAGI 05/29/191727 RPT#: [id number] DC DATE: STATUS: ADM IN [facility] [address] [place] [address] END OF REPORT
--- NOTE | 2019-05-29 18:27 | NUR ---
PT AMBULATED X 3 IN HALLWAY TODAY WITH STANDBY ASSISTANCE
[2019-05-29 20:00] VITALS: BP 125/63
[2019-05-30] VITALS: BP 123/43
[2019-05-30 04:00] VITALS: BP 140/61
[2019-05-30 10:18] VITALS: BP 180/72
--- NOTE | 2019-05-30 15:21 | NUR ---
PT AMBULATING IN HALLWAYS WITH STANDBY ASSIST. PT TOLERATED ACTIVITY VERY WELL.
--- NOTE | 2019-05-30 15:25 | NUR ---
PT FELL ASLEEP MID-SENTENCE REQUESTING PAIN MEDICATION. WILL RECHECK PAIN LEVEL AT A LATER TIME.
--- NOTE | 2019-05-30 16:58 | NUR ---
WENT IN TO FLUSH G TUBE AND PULLED 70 MLS OF ORANGE BILE AND REPLACED. BOWEL SOUNDS HYPOACTIVE X 4. DR. CHATTERJEE NOTIFIED.
[2019-05-30 17:20] VITALS: BP 144/69
--- NOTE | 2019-05-30 19:38 | NUR ---
PATIENT RESTING IN BED AND DENIES NEEDS AT THIS TIME. VSS. PATIENT DENIES NEEDS AT THIS TIME. BED IN LOWEST POSITION AND CALL LIGHT WITHIN REACH. ENCOURAGED THE PATIENT TO CALL IF SHE HAS NEEDS. WILL CONTINUE TO MONITOR.
[2019-05-30 19:40] VITALS: BP 141/65
--- NOTE | 2019-05-30 21:34 | NUR ---
BEGAN PATIENT'S TUBE FEEDING
[2019-05-31 00:42] VITALS: BP 145/70
[2019-05-31 04:00] VITALS: BP 126/75
--- NOTE | 2019-05-31 07:30 | NUR ---
PT RESTING COMFORTABLY IN BED, EYES CLOSED. RR EVEN AND UNLABORED. WILL CONTINUE TO MONITOR.
[2019-05-31 07:43] VITALS: BP 155/79
[2019-05-31 08:40] LABS: INR 1.11 (0.85-1.17); PROTIME 13.8 SECONDS (11.6-15.0)
--- NOTE | 2019-05-31 13:00 | NUR ---
PT AMBULATING IN HALLWAY WITHOUT DIFFICULTY.
--- NOTE | 2019-05-31 14:44 | NUR ---
I have reviewed this patient and I concur with the Shift Assessment completed by the Licensed Practical Nurse today this shift.
[2019-05-31 18:08] VITALS: BP 161/63
--- NOTE | 2019-05-31 19:54 | NUR ---
PATIENT RESTING IN BED WITH C/O 10/10 BURNING PAIN IN HER STOMACH. PATIENT REQUESTED PAIN MEDICATION AND FRESH WATER AT THIS TIME. BED IN LOWEST POSITION AND CALL LIGHT WITHIN REACH. WILL ADMINISTER PAIN MEDS PER ORDERS AND CONTINUE TO MONITOR.
[2019-05-31 19:56] VITALS: BP 122/60
--- NOTE | 2019-05-31 20:15 | NUR ---
STARTED PATIENT'S TUBE FEEDING
[2019-06-01] VITALS: BP 142/66
[2019-06-01 04:00] VITALS: BP 159/70
[2019-06-01 06:28] LABS: BASOPHILS 0.2 % (0-2); EOSINOPHILS 2.3 % (0-7); HEMATOCRIT 34.4 % (36.0-48.0); HEMOGLOBIN 11.3 g/dL (12-16); IMMATURE GRANULOCYTES 0.2 % (0-5); MCHC 32.8 g/dL (31.0-37.0); MCV 94.2 fL (80.0-100.0); MEAN PLATELET VOLUME 10.3 fL (7.4-10.4); NEUTROPHILS 67.3 % (40-80); PLATELET COUNT 151 10x3/uL (130-400); RBC 3.65 10x6/uL (4.00-5.40); RDW 16.4 % (11.5-14.5); WBC 5.7 10x3/uL (4.8-10.8)
[2019-06-01 06:37] LABS: CALC OSMOLALITY 278 mosm/kg (275-300); CALCIUM 8.5 mg/dL (8.5-10.1); CHLORIDE - SERUM 104 mmol/L (98-107); CREATININE - SERUM 0.8 mg/dL (0.6-1.3); GLUCOSE 96 mg/dL (74-106); POTASSIUM - SERUM 3.6 mmol/L (3.5-5.1); SODIUM 141 mmol/L (136-145); UREA NITROGEN 6 mg/dL (7-18); eGFR NON AFRICAN AMERICAN 75 mL/min (90-120)
--- NOTE | 2019-06-01 07:30 | NUR ---
AM ROUNDS, PT UP TO SIDE OF BED, EATING BREAKFAST. PT A/O X4, RESP EVEN AND NONLABORED ON RA. FEEDING DONE INFUSING AT THIS TIME. FLUSHED PEG TUBE WITH 60CC OF WATER AND TOOK TUBING DONE. RT WRIST IV SL. PT DENIES ANY NEEDS AT THIS TIME. CALL LIGHT IN REACH,NAD NOTED,W ILL CONTINUE PLAN OF CARE.
--- NOTE | 2019-06-01 08:39 | NUR ---
AM MEDS GIVEN AT THIS TIME. PT UP TO SIDE OF BED, EATING HER YOGURT. PT DENIES ANY NEEDS AT THIS TIME. CALL LIGHT IN REACH, NAD NOTED, WILL CONTINUE TO MONITOR.
[2019-06-01 08:56] LABS: INR 1.1 (0.85-1.17); PROTIME 13.7 SECONDS (11.6-15.0)
[2019-06-01 09:33] VITALS: BP 157/77
[2019-06-01] MEDS ORDERED: E.E.S. 200200 MG/5 M PO (11:38)
[2019-06-01 12:16] VITALS: BP 158/74
--- NOTE | 2019-06-01 13:17 | NUR ---
Calorie Count Results: 05/30/19= 146kcal and 3gms PRO 05/31/19= 240kcal and 5gms PRO RD Following
--- NOTE | 2019-06-01 13:59 | NUR ---
PROVIDED VERBAL AND WRITTEN DISHCARGE TEACHING, D/C RT WRIST IV WITH CATHETER TIP INTACT.
--- NOTE | 2019-06-01 14:29 | NUR ---
PT LEFT UNIT VIA WHEELCHAIR, WITH ALL BELONGINGS, ACCOMPANIED BY FAMILY, NAD NOTED.
--- NOTE | 2019-06-01 17:37 | MORECARE ---
CASE MANAGEMENT DISCHARGE SUMMARY PATIENT: JEANETH LOPES UNIT: [id number] ADM DATE: 05/18/19 AGE: 68 : 48 SEX: F ROOM/BED: D.1207 AUTHOR: ALANNA,DOC PHYSICIAN: REFERRING PHYSICIAN: JEISON PETTIT MD DATE OF SERVICE: 06/01/19 Discharge Plan Patient Name: JEANETH LOPES Facility: [facility]:[place] : 1950 Planned Disposition: Home Anticipated Discharge Date: 05/20/19 Discharge Date: 06/01/2019 Expected LOS: 2 Initial Reviewer: [email or web address] Initial Review Date: 05/18/2019 Generated: 06/01/19 6:37 pm Comments DCP- Discharge Planning Updated by [id number]: Bibiana Garcia on 05/29/19 4:[address] LATE ENTRY 1230 [facility], HOME HEALTH PROVIDER, HAS THE PATIENT ON THE SCHEDULE FOR THIS WEEKEND PER MIKEY. SHE REQUESTED CM CALL THIS LATE PM REGARDING PROJECTED DATE OF DISCHARGE. 1400 CM CALLED TO NOTIFY [place] THIS AFTERNOON TO ADVISE THE PLAN IS FOR DISCHARGE SATURDAY. 1430 MOE FROM [place] TELEPHONED. CM ADVISED THE PLAN IS FOR DISCHARGE THIS WEEKEND. CM TO CALL [phone] WHEN PATIENT IS DISCHARGED. [facility] WILL DELIVER SUPPLIES IE. FEEDING AND PUMP TO THE PATIENT WHEN DISCHARGED. CM SPOKE W/ MECCA THE DAUGHTER TO ADVISE OF DAVID'S PLAN. DCP- Discharge Planning Updated by [email or web address]: Bibiana Garcia on 05/29/19 2:[address] LATE ENTRY 0810 SURGICAL PROCESSOR ADVISED THE CM THAT THE PATIENT WOULD NOT BE DISCHARGE TODAY. THE PATIENT CONTINUES TO COMPLAIN OF PAIN. THE DAUGHTER ASK FOR PHYSICAL THERAPY CONSULT. SURGICAL PROCESSOR ALSO SPOKE WITH THE DIETITIAN. FEEDINGS CHANGED TO 1800- 0600 OVERNIGHT VIA PUMP. DCP- Discharge Planning Updated by [id number]: Angelina Mauro on 05/28/19 4:[address] CM called and spoke with David regarding tube feeding and supplies. Faxed over records CM asked if they could please let me know if supplies would be covered under patient's insurance and please give us a quote so CM can inform patient. Office stated that Laura Coyne would be calling us back with quote. CM called multiple HH agencies. TERRY was informed that [facility] is a provider for [employer]. CM contacted Anali @ [place] and faxed records. Anali stated that they could possibly admit Tuesday 05/29 and definitely Sat 05/30 CM faxed over records to [facility]. CM spoke with Dr. Galvin regarding feeding and he referred it back to dietary. Dr. Hooks stated that he thought the tube was placed for more of an outlet for decompression to help with nausea / vomiting. CM cutting and splicing supervisor spoke with dietary and got orders for tube feeding and sent update to [place]. Laura Coyne with [place] will be here to educate patient today. CM spoke with patient and daughter Mecca regarding Head of bed needing to be elevated 30 degrees. Patient requested a wedge for her bed v/s a hospital bed. CM was told that the only DME that carries equipment of this kind was [employer] notified and they stated that it was currently out of stock of the 12 inch wedge which would elevate 30 degrees. Insurance will not cover it and the cost is $50.00. [employer] stated that [employer] might have it in stock. CM called [facility] and the cost was 100.00. CM spoke with Mecca patient's daughter and she stated that she would just put the head of patients bed on blocks for elevation. While CM was speaking to daughter she stated that she had spoke with Dr. Galvin. and there wasn't any plans for discharge for a couple of days. CM called Dr. Galvin and left message regarding discharge planning. Laura Coyne called and stated that she came to see patient for teaching and patient was severely nauseated and complaining of pain along with the fact that tube feeding have not been started yet. Laura Coyne stated she would come back tomorrow to educate. CM asked for nunes quote again so CM can let patient know about cost. Laura Coyne stated she would email to later. CM will continue to follow and assist as needed with discharge planning / needs. DCP- Discharge Planning Updated by [id number]: Angelina Mauro on 05/27/19 7:[address] Patient had G tube placed today for nutritional support. TERRY spoke with patient's daughter today Mecca and wanted to check to see if they would like set up. Mecca stated that Dr. Lara had mentioned that she may need a pump for feeding at night while sleeping. [facility] signed for HH/ DME. CM awaiting to see what dietary recommendations are. CM will continue to follow and assist as needed with discharge planning / needs. DCP- Discharge Planning Updated by [id number]: Angelina Mauro on 05/25/19 4:[address] Patient daughter Mecca doesn't feel like patient is well enough to go home. Mecca states that she feels the patient will be right back in hospital if discharged. Daughter spoke with Dr. Galvin and he explained that as long as patient is taking narcotics the surgeon @ [facility] will not place gastric pacemaker. Dr. Galvin has d/c'd questran since patient hasn't had BM in 5 days and ordered citrate. He has also consulted surgery for G-J tube placement for nutrition. CM will continue to follow and assist as needed with discharge planning / needs. DCP- Discharge Planning Updated by [id number]: Angelina Mauro on 05/25/19 11:[address] CM met with patient denies any discharge needs. Requesting House calls upon discharge. D/C IMM signed 05/25/19 @ 1220. CM will continue to follow and assist as needed with discharge planning / needs. DCP- Discharge Planning Updated by [email or web address]: Becki Dee on 05/18/19 11:[address] Patient Name: JEANETH LOPES Admission Status: ER Accout number: [id number] Admission Date: 05-18-2019 : 1950 Admission Diagnosis: Attending: JEISON PETTIT Current LOS: 1 Anticipated DC Date: 05-20-2019 Planned Disposition: Home Primary Insurance: [employer] PPO MCR ADVANTAGE Discharge Planning Comments: CM met with patient and her daughter, Mecca Russo to complete initial dc planning assessment. CM educated patient and Mecca on the CM role and verbal consent given by patient's daughter to complete assessment. Patient had just received IV dilaudid so deferred questions to her daughter. CM verified patient's address, phone number, and emergency contact phone numbers. Patient lives at home alone and Mecca reports she is independent and uses no DME devices for assistance. At discharge patient plans to return home and Mecca feels this is a safe discharge plan. Mecca did request that the patient get house calls arranged for discharge. CM discussed availability of home health, rehab services, and medical equipment. Mecca denied known discharge needs at this time. Mecca or her sister will transport her home at time of discharge. CM will continue to follow and will assist as needed with dc plans/needs. Multiple Sclerosis Nurse: Becki Dee RN, [facility] DCPIA - Discharge Planning Initial Assessment Updated by [id number]: Becki Dee on 05/18/19 11:51 am * Is the patient Alert and Oriented? Yes * How many steps to enter\exit or inside your home? none * PCP Dr. Hernandez * Pharmacy [facility] * Preadmission Environment Home Alone * ADLs Independent * Equipment None * List name and contact numbers for known caregivers / representatives who currently or will assist patient after discharge: Ania Lopes - daughter - [phone] Mecca Russo - daughter (works in rehab here) - [phone] * Verbal permission to speak to the caregivers and representatives has been obtained from the patient. Yes * Community resources currently utilized None * Additional services required to return to the preadmission environment? Yes * Can the patient safely return to the preadmission environment? No * Has this patient been hospitalized within the prior 30 days at any hospital? No External Providers External Provider: OTHER-OTHER Next Contact Date: Service Request Date: Service Type: Resolution: Reviewer: Comments: Coverage Notice Reviewer: [id number] - Angelinahoney Mauro Notice Issued Date-Time: 05/25/2019 12:25 Notice Type: IM Discharge Notice Notice Delivered To: Patient Relationship to Patient: Self Software Sales Executive Name: Delivery Method: HAND - Hand Delivered Hayley Days: Prior Verbal Notification: Recipient Understood Notice: Yes Recipient Signature: Yes Med Rec Note Co-signed by Attending: Coverage Notice Comment: Reviewer: [id number] - Angelina Nj Notice Issued Date-Time: 05/27/2019 14:00 Notice Type: Patient Choice Letter Notice Delivered To: Family Member Relationship to Patient: Daughter Software Sales Executive Name: Mecca Delivery Method: PHONE - Phone Hayley Days: Prior Verbal Notification: Recipient Understood Notice: Yes Recipient Signature: Yes Med Rec Note Co-signed by Attending: Coverage Notice Comment: sudheer for dme and hh Last DP export: 05/29/19 4:28 p Patient Name: JEANETH LOPES Page [id number] at 1737 All edits/amendments must be made on the electronic document DICTATION DATE: 06/01/191736 PRIVATE CLIENT ADVISOR: MAGI 06/01/191736 RPT#: [id number] DC DATE:06/01/19 STATUS: DIS IN [facility] [address] [place] [address] END OF REPORT
--- NOTE | 2019-06-01 17:45 | MORECARE ---
CASE MANAGEMENT DISCHARGE SUMMARY PATIENT: JEANETH LOPES UNIT: [id number] ADM DATE: 05/18/19 AGE: 68 : 48 SEX: F ROOM/BED: D.1207 AUTHOR: ALANNA,DOC PHYSICIAN: REFERRING PHYSICIAN: JEISON PETTIT MD DATE OF SERVICE: 06/01/19 Discharge Plan Patient Name: JEANETH LOPES Facility: [facility]:[place] : 1950 Planned Disposition: Home Anticipated Discharge Date: 05/20/19 Discharge Date: 06/01/2019 Expected LOS: 2 Initial Reviewer: [email or web address] Initial Review Date: 05/18/2019 Generated: 06/01/19 6:45 pm Comments DCP- Discharge Planning Updated by [email or web address]: Angelina Mauro on 06/01/19 4:[address] CM called and spoke with Laura Coyne @ [place] about patient discharging today and address change . CM called and spoke to [facility] notifying them that patient is discharging today and will be staying at daughter's home. [address] [place] [address] and contact number [phone]. CM faxed over House Calls order for PT / INR orders. Mecca daughter has been notified of all discharge plans. CM will continue to follow and assist as needed with discharge planning / needs. DCP- Discharge Planning Updated by [email or web address]: Bibiana Garcia on 05/29/19 4:[address] LATE ENTRY 1230 [facility], HOME HEALTH PROVIDER, HAS THE PATIENT ON THE SCHEDULE FOR THIS WEEKEND PER MIKEY. SHE REQUESTED CM CALL THIS LATE PM REGARDING PROJECTED DATE OF DISCHARGE. 1400 CM CALLED TO NOTIFY [facility] THIS AFTERNOON TO ADVISE THE PLAN IS FOR DISCHARGE SATURDAY. 1430 MOE FROM [facility] TELEPHONED. CM ADVISED THE PLAN IS FOR DISCHARGE THIS WEEKEND. CM TO CALL [phone] WHEN PATIENT IS DISCHARGED. [facility] WILL DELIVER SUPPLIES IE. FEEDING AND PUMP TO THE PATIENT WHEN DISCHARGED. CM SPOKE W/ MECCA THE DAUGHTER TO ADVISE OF [facility]'S PLAN. DCP- Discharge Planning Updated by [id number]: Bibiana Garcia on 05/29/19 2:[address] LATE ENTRY 0810 MARIT[facility] OFFICER ADVISED THE CM THAT THE PATIENT WOULD NOT BE DISCHARGE TODAY. THE PATIENT CONTINUES TO COMPLAIN OF PAIN. THE DAUGHTER ASK FOR PHYSICAL THERAPY CONSULT. MARITIME OFFICER ALSO SPOKE WITH THE DIETITIAN. FEEDINGS CHANGED TO [phone]- [phone] OVERNIGHT VIA PUMP. DCP- Discharge Planning Updated by [id number]: Angelina Mauro on 05/28/19 4:[address] CM called and spoke with [facility] regarding tube feeding and supplies. Faxed over records CM asked if they could please let me know if supplies would be covered under patient's insurance and please give us a quote so CM can inform patient. Office stated that Laura Coyne would be calling us back with quote. CM called multiple agencies. TERRY was informed that [facility] is a provider for [employer]. CM contacted Anali @ [facility] and faxed records. Anali stated that they could possibly admit Tuesday 05/29 and definitely Sat 05/30 CM faxed over records to [facility]. TERRY spoke with Dr. Galvin regarding feeding and he referred it back to dietary. Dr. Hooks stated that he thought the tube was placed for more of an outlet for decompression to help with nausea / vomiting. CM micrographics services supervisor spoke with dietary and got orders for tube feeding and sent update to [facility]. Laura Coyne with [facility] will be here to educate patient today. TERRY spoke with patient and daughter Mecca regarding Head of bed needing to be elevated 30 degrees. Patient requested a wedge for her bed v/s a hospital bed. TERRY was told that the only DME that carries equipment of this kind was [facility]. [facility] notified and they stated that it was currently out of stock of the 12 inch wedge which would elevate 30 degrees. Insurance will not cover it and the cost is $50.00. [facility] stated that [employer] might have it in stock. CM called [facility] and the cost was 100.00. TERRY spoke with Mecca patient's daughter and she stated that she would just put the head of patients bed on blocks for elevation. While CM was speaking to daughter she stated that she had spoke with Dr. Galvin. and there wasn't any plans for discharge for a couple of days. CM called Dr. Galvin and left message regarding discharge planning. Laura Coyne called and stated that she came to see patient for teaching and patient was severely nauseated and complaining of pain along with the fact that tube feeding have not been started yet. Laura Coyne stated she would come back tomorrow to educate. CM asked for nunes quote again so CM can let patient know about cost. Laura Coyne stated she would email to CM later. CM will continue to follow and assist as needed with discharge planning / needs. DCP- Discharge Planning Updated by [id number]: Angelina Mauro on 05/27/19 7:[address] Patient had G tube placed today for nutritional support. CM spoke with patient's daughter today Mecca and wanted to check to see if they would like HH set up. Mecca stated that Dr. Lara had mentioned that she may need a pump for feeding at night while sleeping. [facility] signed for HH/ DME. CM awaiting to see what dietary recommendations are. CM will continue to follow and assist as needed with discharge planning / needs. DCP- Discharge Planning Updated by [id number]: Angelina Mauro on 05/25/19 4:[address] Patient daughter Mecca doesn't feel like patient is well enough to go home. Mecca states that she feels the patient will be right back in hospital if discharged. Daughter spoke with Dr. Galvin and he explained that as long as patient is taking narcotics the surgeon @ [facility] will not place gastric pacemaker. Dr. Galvin has d/c'd questran since patient hasn't had BM in 5 days and ordered citrate. He has also consulted surgery for G-J tube placement for nutrition. CM will continue to follow and assist as needed with discharge planning / needs. DCP- Discharge Planning Updated by [id number]: Angelina Mauro on 05/25/19 11:[address] CM met with patient denies any discharge needs. Requesting House calls upon discharge. D/C IMM signed 05/25/19 @ 1220. CM will continue to follow and assist as needed with discharge planning / needs. DCP- Discharge Planning Updated by [email or web address]: Becki Dee on 05/18/19 11:[address] Patient Name: JEANETH LOPES Admission Status: ER Accout number: [id number] Admission Date: 05-18-2019 : 1950 Admission Diagnosis: Attending: JEISON PETTIT Current LOS: 1 Anticipated DC Date: 05-20-2019 Planned Disposition: Home Primary Insurance: [employer] CHOICE PPO MCR ADVANTAGE Discharge Planning Comments: CM met with patient and her daughter, Mecca Russo to complete initial dc planning assessment. CM educated patient and Mecca on the CM role and verbal consent given by patient's daughter to complete assessment. Patient had just received IV dilaudid so deferred questions to her daughter. CM verified patient's address, phone number, and emergency contact phone numbers. Patient lives at home alone and Mecca reports she is independent and uses no DME devices for assistance. At discharge patient plans to return home and Mecca feels this is a safe discharge plan. Mecca did request that the patient get house calls arranged for discharge. CM discussed availability of home health, rehab services, and medical equipment. Mecca denied known discharge needs at this time. Mecca or her sister will transport her home at time of discharge. CM will continue to follow and will assist as needed with dc plans/needs. Department Traffic Freight Router: Becki Dee RN, [facility] DCPIA - Discharge Planning Initial Assessment Updated by [id number]: Becki Dee on 05/18/19 11:51 am * Is the patient Alert and Oriented? Yes * How many steps to enter\exit or inside your home? none * PCP Dr. Hernandez * Pharmacy [facility] * Preadmission Environment Home Alone * ADLs Independent * Equipment None * List name and contact numbers for known caregivers / representatives who currently or will assist patient after discharge: Ania Lopes - daughter - [phone] Mecca Rusos - daughter (works in rehab here) - [phone] * Verbal permission to speak to the caregivers and representatives has been obtained from the patient. Yes * Community resources currently utilized None * Additional services required to return to the preadmission environment? Yes * Can the patient safely return to the preadmission environment? No * Has this patient been hospitalized within the prior 30 days at any hospital? No Coverage Notice Reviewer: [id number] - Angelina Mauro Notice Issued Date-Time: 05/25/2019 12:25 Notice Type: IM Discharge Notice Notice Delivered To: Patient Relationship to Patient: Self External Grinder Tender Name: Delivery Method: HAND - Hand Delivered Hayley Days: Prior Verbal Notification: Recipient Understood Notice: Yes Recipient Signature: Yes Med Rec Note Co-signed by Attending: Coverage Notice Comment: Reviewer: [id number] Rex Mauro Notice Issued Date-Time: 05/27/2019 14:00 Notice Type: Patient Choice Letter Notice Delivered To: Family Member Relationship to Patient: Daughter External Grinder Tender Name: Mecca Delivery Method: PHONE - Phone Hayley Days: Prior Verbal Notification: Recipient Understood Notice: Yes Recipient Signature: Yes Med Rec Note Co-signed by Attending: Coverage Notice Comment: carin for dme and hh Reviewer: [id number] Rex Mauro Notice Issued Date-Time: 06/01/2019 13:00 Notice Type: IM Discharge Notice Notice Delivered To: Patient Relationship to Patient: Self External Grinder Tender Name: Delivery Method: HAND - Hand Delivered Hayley Days: Prior Verbal Notification: Recipient Understood Notice: Yes Recipient Signature: Yes Med Rec Note Co-signed by Attending: Coverage Notice Comment: Last DP export: 06/01/19 4:37 p Patient Name: JEANETH LOPES Page 53440 at 1745 All edits/amendments must be made on the electronic document DICTATION DATE: 06/01/191744 MEDICAL LABORATORY SCIENTIST: MAGI 06/01/191744 RPT#: [id number] DC DATE:06/01/19 STATUS: DIS IN [facility] [address] [place] [address] END OF REPORT
== END 2019-06-01 14:30 | disposition home health service (06) | DRG 74 ==
LOC: D.ER 08:38 → D.M3 10:12
PROVIDERS: Emergency Medicine; Family Medicine; Internal Medicine Gastroenterology; Internal Medicine Nephrology; ADMIT Family Medicine; ATTEND Family Medicine
PROC: 0D758ZZ Dilation of Esophagus, Via Natural or Artificial Opening Endoscopic (ICD-10-PCS; 2019-05-27)
PROC: 0DH63UZ Insertion of Feeding Device into Stomach, Percutaneous Approach (ICD-10-PCS; 2019-05-27)
PROC: 0DB68ZX Excision of Stomach, Via Natural or Artificial Opening Endoscopic, Diagnostic (ICD-10-PCS; principal; 2019-05-27 11:00)
DX: E11.43 Type 2 diabetes mellitus with diabetic autonomic (poly)neuropathy (principal); N17.9 Acute kidney failure, unspecified; E46 Unspecified protein-calorie malnutrition; K31.84 Gastroparesis; E86.0 Dehydration; K57.90 Diverticulosis of intestine, part unspecified, without perforation or abscess without bleeding; E11.65 Type 2 diabetes mellitus with hyperglycemia; E87.6 Hypokalemia; D64.9 Anemia, unspecified; Z68.33 Body mass index [BMI] 33.0-33.9, adult; R63.0 Anorexia; K22.2 Esophageal obstruction; K44.9 Diaphragmatic hernia without obstruction or gangrene; T18.2XXA Foreign body in stomach, initial encounter; X58.XXXA Exposure to other specified factors, initial encounter; T18.3XXA Foreign body in small intestine, initial encounter

== ENCOUNTER → 2019-06-19 14:02 | Outpatient (CLI) | payer MEDICARE ==
[2019-05-25 15:47] VITALS: BMI 33.1
[~2019-06-19 14:02] MED LIST changes: +DIFLUCAN150 MG PO; +E.E.S. 200200 MG/5 M PO; +LEVOFLOXACIN500 MG PO; +NORVASC2.5 MG PO; +PHENERGAN25 M1 PO
== END | disposition home or self-care (01) ==
LOC: D.LABREF 14:02
PROVIDERS: ATTEND Surgery
DX: K94.29 Other complications of gastrostomy (principal)

== ENCOUNTER 2019-06-25 12:27 | Inpatient (IN) | payer MEDICARE ==
[~2019-06-25] VITALS: Ht 157.5 cm; Wt 77.6 kg
[~2019-06-25 12:27] MED LIST changes: -DIFLUCAN150 MG PO; -LEVOFLOXACIN500 MG PO
--- NOTE | 2019-06-25 12:48 | NUR ---
REC'D TO ROOM 2229 AWAKE AND ALERT. RESP EVEN AND UNLABORED WITH NO DISTRESS NOTED. CAN EXPRESS NEEDS AND WANTS. NO C/O NOTED OR VOICED AT THIS TIME. DRESSING CLEAN DRY AND INTACT TO ABD AND CHANGED PER ORDERS. INFUSA PORT ACCESSED BY RN. WILL CONTINUE TO MONITOR FOR NEEDS. C/L IN REACH AT BEDSIDE.
[2019-06-25 13:35] VITALS: BP 113/42; BMI 31.3
[2019-06-25 14:03] LABS: INR 1.85 (0.85-1.17); PROTIME 20.7 SECONDS (11.6-15.0)
[2019-06-25 16:27] VITALS: BP 113/53
[2019-06-25 16:47] LABS: BASOPHILS 0.1 % (0-2); EOSINOPHILS 0 % (0-7); HEMATOCRIT 37.1 % (36.0-48.0); HEMOGLOBIN 12.7 g/dL (12-16); IMMATURE GRANULOCYTES 0.3 % (0-5); LYMPHOCYTES 6.8 % (15-50); MCH 32.1 pg (26.0-34.0); MCHC 34.2 g/dL (31.0-37.0); MCV 93.7 fL (80.0-100.0); MEAN PLATELET VOLUME 10.8 fL (7.4-10.4); MONOCYTES 7.9 % (2-11); NEUTROPHILS 84.9 % (40-80); PLATELET COUNT 241 10x3/uL (130-400); RBC 3.96 10x6/uL (4.00-5.40); RDW 14.9 % (11.5-14.5); WBC 15.2 10x3/uL (4.8-10.8)
[2019-06-25 16:51] LABS: ANION GAP 16.6 mmol/L (8-16); CALCIUM 8.3 mg/dL (8.5-10.1); CARBON DIOXIDE 21.1 mmol/L (21.0-32.0); CREATININE - SERUM 1.3 mg/dL (0.6-1.3); POTASSIUM - SERUM 4.7 mmol/L (3.5-5.1)
--- NOTE | 2019-06-25 18:36 | NUR ---
PT WAS NOT GIVEN LOVENOX INJECTION D/T BEING ALLERGY TO THIS MEDICATION. WILL NOTIFY
[2019-06-25 20:00] VITALS: BP 143/73
[2019-06-26] VITALS: BP 126/55
--- NOTE | 2019-06-26 00:39 | NUR ---
PATIENT IN BED RESTING SHE IS ALERT WITH SOME CONFUSION NOTED AT TIMES. IV IS A PORT TO RIGHT CHEST WITH PROCAL AT 50. DRESSING CDI TO ABDOM SCD'S IN PLACE. CALL LIGHT AND WATER IN REACH. BED LOW NON SKID SCOKS IN PLACE ALARM ON .
[2019-06-26 04:00] VITALS: BP 135/63
[2019-06-26 06:07] LABS: BASOPHILS 0.1 % (0-2); EOSINOPHILS 0.9 % (0-7); IMMATURE GRANULOCYTES 0.1 % (0-5); LYMPHOCYTES 10.1 % (15-50); MCH 31.2 pg (26.0-34.0); MCHC 33.6 g/dL (31.0-37.0); MCV 92.9 fL (80.0-100.0); MEAN PLATELET VOLUME 10.2 fL (7.4-10.4); MONOCYTES 8.9 % (2-11); NEUTROPHILS 79.9 % (40-80); PLATELET COUNT 158 10x3/uL (130-400); RDW 14.7 % (11.5-14.5)
[2019-06-26 06:30] LABS: ANION GAP 10.1 mmol/L (8-16); CALCIUM 8.1 mg/dL (8.5-10.1); CARBON DIOXIDE 24.4 mmol/L (21.0-32.0); PHOSPHOROUS 3.2 mg/dL (2.5-4.9); POTASSIUM - SERUM 4.5 mmol/L (3.5-5.1)
[2019-06-26 06:32] LABS: INR 1.74 (0.85-1.17); PROTIME 19.7 SECONDS (11.6-15.0)
[2019-06-26 06:33] LABS: APTT 50.4 SECONDS (22.8-39.4)
[2019-06-26 06:34] LABS: D-DIMER-QUANTITATIVE 0.6 ug/mLFEU (0.20-0.54)
--- NOTE | 2019-06-26 07:00 | NUR ---
RECEIVED REPORT. ELLE CABAN
[2019-06-26 07:05] LABS: HEMOGLOBIN 9.7 g/dL (12-16); RBC 3.11 10x6/uL (4.00-5.40); WBC 8.6 10x3/uL (4.8-10.8)
[2019-06-26 07:06] LABS: HEMATOCRIT 28.9 % (36.0-48.0)
[2019-06-26 07:55] VITALS: BP 117/56
[2019-06-26 14:26] VITALS: Ht 157.5 cm; Wt 77.6 kg
--- NOTE | 2019-06-26 18:25 | NUR ---
SPOKE WITH DAUGHTER WHO HAS CONCERN THAT PATIENT WAS GIVEN LOVENOX WITH AN ALLERGY. SPOKE TO DR CHATTERJEE, HE WAS AWARE AND DISCUSSED CURRENT LAB TRENDING ON PLT. HIT REACTION TO HEPARIN AND LOVENOX TOLOD TO SEN. PT TYPICALLY ON COUMADIN BUT MD WANTS TO HOLD IT UNTIL HE SEES LAB IN AM. REVIEWED MEDS WITH MD AND DAUGHTER REQUEST TO STOP INSULIN SLIDING SCALE, JARDIANCE AND BUMEX. MD STATED TO DC THEM AND RE-EVAL NEEDED. FAMILY INFORMED. ADDED HIT REACTION TO ALLERGIES IN EMR.
--- NOTE | 2019-06-26 19:15 | NUR ---
RECEIVED CARE FROM DAY NURSE. LYING IN BED WATCHING TV. REPORTS NO NEEDS AT THIS TIME. CALL LIGHT AT SIDE. IV INFUSING PER ORDER TO PATENT RIGHT IP.
[2019-06-26 20:00] VITALS: BP 129/62
--- NOTE | 2019-06-26 20:30 | NUR ---
DRESSING CHANGE TO ABD PER ORDER.
[2019-06-27] VITALS: BP 124/41
--- NOTE | 2019-06-27 01:09 | NUR ---
I have reviewed this patient and I concur with the Shift Assessment completed by the Licensed Practical Nurse today this shift.
[2019-06-27 04:00] VITALS: BP 123/69
[2019-06-27 05:54] LABS: BASOPHILS 0.1 % (0-2); EOSINOPHILS 2.3 % (0-7); HEMOGLOBIN 10.2 g/dL (12-16); IMMATURE GRANULOCYTES 0.3 % (0-5); LYMPHOCYTES 12.8 % (15-50); MCH 31.1 pg (26.0-34.0); MCHC 32.9 g/dL (31.0-37.0); MCV 94.5 fL (80.0-100.0); MEAN PLATELET VOLUME 10.1 fL (7.4-10.4); MONOCYTES 9.6 % (2-11); NEUTROPHILS 74.9 % (40-80); PLATELET COUNT 155 10x3/uL (130-400); RBC 3.28 10x6/uL (4.00-5.40); RDW 14.8 % (11.5-14.5)
[2019-06-27 06:47] LABS: CALC OSMOLALITY 264 mosm/kg (275-300); CALCIUM 7.9 mg/dL (8.5-10.1); CARBON DIOXIDE 24.5 mmol/L (21.0-32.0); CHLORIDE - SERUM 102 mmol/L (98-107); CREATININE - SERUM 0.8 mg/dL (0.6-1.3); GLUCOSE 75 mg/dL (74-106); MAGNESIUM - SERUM 1.9 mg/dL (1.8-2.4); PHOSPHOROUS 3.1 mg/dL (2.5-4.9); POTASSIUM - SERUM 4.2 mmol/L (3.5-5.1); SODIUM 133 mmol/L (136-145); UREA NITROGEN 12 mg/dL (7-18); eGFR NON AFRICAN AMERICAN 75 mL/min (90-120)
[2019-06-27 08:46] VITALS: BP 134/72
--- NOTE | 2019-06-27 09:33 | NUR ---
PT ALERT X 4. BREATH SOUNDS CLEAR BILAT. DRESSING TO ABDOMEN CDI. PORT TO RIGHT CHEST, PATENT, DRESSING CDI. PT REPORTING PAIN OF 7/10, MEDICATED PER ORDERS, WILL MONITOR. BED LOW, CALL LIGHT IN REACH. NO OTHER NEEDS AT THIS TIME.
[2019-06-27 12:39] VITALS: BP 155/77
[2019-06-27 16:52] VITALS: BP 128/65
--- NOTE | 2019-06-27 19:30 | NUR ---
PT SITTING UP IN BED WITHOUT DISTRESS, AOX4. RIGHT CHEST PORT INFUSING PROCAL @ 50 AND NS @ 10. REDNESS AND SWELLING TO RUQ, TENDER TO TOUCH. DRESSING TO ABD CDI. DENIES NEEDS. REMINDED PT SHE IS NPO AFTER MN FOR PROCEDURE, VERBALIZED UNDERSTANDING. CL IN REACH, WILL CTM
[2019-06-27 19:53] VITALS: BP 129/70
--- NOTE | 2019-06-27 20:15 | NUR ---
ASSISTED PT UP TO BATHROOM AND BACK TO BED. ANGELA ON. TOOK HS MEDS WITHOUT DIFFICULTY IN PUDDING. DENIES OTHER NEEDS. CL IN REACH, WILL CTM
--- NOTE | 2019-06-27 23:45 | NUR ---
PT STATES PAIN IN ABD 05/23. GAVE NORCO AND PHENERGAN ORDERED. ASSISTED UP TO BATHROOM AND BACK TO BED. ANGELA ON. DENIES NEEDS. CL IN REACH, WILL CTM
[2019-06-28 00:46] VITALS: BP 149/80
[2019-06-28 05:03] VITALS: BP 143/78
[2019-06-28 05:44] LABS: BASOPHILS 0.1 % (0-2); EOSINOPHILS 3.1 % (0-7); HEMATOCRIT 30.4 % (36.0-48.0); IMMATURE GRANULOCYTES 0.1 % (0-5); LYMPHOCYTES 11.1 % (15-50); MCH 31.3 pg (26.0-34.0); MCHC 32.9 g/dL (31.0-37.0); MCV 95.3 fL (80.0-100.0); MONOCYTES 11.7 % (2-11); NEUTROPHILS 73.9 % (40-80); PLATELET COUNT 173 10x3/uL (130-400); RBC 3.19 10x6/uL (4.00-5.40); RDW 14.8 % (11.5-14.5); WBC 7.4 10x3/uL (4.8-10.8)
[2019-06-28 06:15] LABS: CALC OSMOLALITY 270 mosm/kg (275-300); CARBON DIOXIDE 25.2 mmol/L (21.0-32.0); CHLORIDE - SERUM 103 mmol/L (98-107); CREATININE - SERUM 0.8 mg/dL (0.6-1.3); GLUCOSE 90 mg/dL (74-106); MAGNESIUM - SERUM 1.9 mg/dL (1.8-2.4); POTASSIUM - SERUM 4.1 mmol/L (3.5-5.1); SODIUM 136 mmol/L (136-145); UREA NITROGEN 9 mg/dL (7-18); eGFR NON AFRICAN AMERICAN 75 mL/min (90-120)
[2019-06-28 08:58] VITALS: BP 137/68
--- NOTE | 2019-06-28 09:36 | NUR ---
PT SLEEPING. BREATH SOUNDS CLEAR BILAT. DRESSING TO ABDOMEN CDI. PORT TO RIGHT CHEST, PATENT, DRESSING CDI. BED LOW, CALL LIGHT IN REACH.
[2019-06-28 12:07] VITALS: BP 143/67
--- NOTE | 2019-06-28 13:14 | NUR ---
PORTION OF UPPER CROWN FELL OFF DURING INTUBATION. BAGGED AND PLACED ON CHART
[2019-06-28 13:47] VITALS: BP 150/69
--- NOTE | 2019-06-28 19:30 | NUR ---
PT LYING IN BED RESTING QUIETLY WITHOUT DISTRESS, DENIES NEEDS. RIGHT CHEST PORT INFUSING PROCAL @ 50. FALL PRECAUTIONS IN PLACE, ANGELA ON. SCDS IN PLACE. CL IN REACH, WILL CTM
[2019-06-28 20:00] VITALS: BP 121/58
--- NOTE | 2019-06-28 20:30 | NUR ---
ASSISTED PT UP TO BATHROOM TO VOID AND BACK TO BED. MINIMAL ASSIST. ANGELA ON. DAUGHTER AT BEDSIDE. STATES PAIN 05/23, GAVE PAIN MED ORDERED. SEE MAR. ANGELA ON, DENIES NEEDS. CL IN REACH, WILL CTM
[2019-06-29] VITALS: BP 127/58
[2019-06-29 04:00] VITALS: BP 115/55
--- NOTE | 2019-06-29 05:45 | NUR ---
GAVE AM MEDS WITHOUT DIFFICULTY. PT STATES NO PAIN AT THIS TIME. ANGELA ON. SCDS ON. WILL CTM
[2019-06-29 06:33] LABS: BASOPHILS 0.2 % (0-2); HEMATOCRIT 29.3 % (36.0-48.0); HEMOGLOBIN 9.4 g/dL (12-16); IMMATURE GRANULOCYTES 0.3 % (0-5); MCH 30.7 pg (26.0-34.0); MCHC 32.1 g/dL (31.0-37.0); MCV 95.8 fL (80.0-100.0); MEAN PLATELET VOLUME 10.2 fL (7.4-10.4); MONOCYTES 16.1 % (2-11); NEUTROPHILS 65.4 % (40-80); PLATELET COUNT 197 10x3/uL (130-400); RBC 3.06 10x6/uL (4.00-5.40); RDW 14.9 % (11.5-14.5); WBC 6.7 10x3/uL (4.8-10.8)
[2019-06-29 06:59] LABS: CALC OSMOLALITY 275 mosm/kg (275-300); CALCIUM 7.8 mg/dL (8.5-10.1); CARBON DIOXIDE 23.2 mmol/L (21.0-32.0); CHLORIDE - SERUM 106 mmol/L (98-107); CREATININE - SERUM 0.8 mg/dL (0.6-1.3); GLUCOSE 112 mg/dL (74-106); MAGNESIUM - SERUM 1.8 mg/dL (1.8-2.4); PHOSPHOROUS 3.3 mg/dL (2.5-4.9); SODIUM 138 mmol/L (136-145); UREA NITROGEN 9 mg/dL (7-18); eGFR NON AFRICAN AMERICAN 75 mL/min (90-120)
--- NOTE | 2019-06-29 07:56 | NUR ---
ALERT AND ORIENTED. LUNGS CLEAR BILATERALLY IN ALL HANNA. HEART SOUNDS S1 AND S2 HEARD IN ALL HANNA. BOWEL SOUNDS ACTIVE X 4. ABD DRSG C/D/I. RIGHT CHEST PORT PATENT. DENIES PAIN. DENIES NEEDS. BED LOW. CALL LOUIS AND PERSONAL ITEMS IN REACH. WILL CONTINUE TO MONITOR.
[2019-06-29 08:06] VITALS: BP 116/56
[2019-06-29 11:49] VITALS: BP 124/65
--- NOTE | 2019-06-29 12:02 | MORECARE ---
CASE MANAGEMENT DISCHARGE SUMMARY PATIENT: JEANETH JUDGE UNIT: [id number] ADM DATE: 06/25/19 AGE: 69 : 48 SEX: F ROOM/BED: D.2229 AUTHOR: RAJAT MONDRAGON PHYSICIAN: REFERRING PHYSICIAN: MEHRDAD CHATTERJEE MD DATE OF SERVICE: 06/29/19 Discharge Plan Patient Name: JEANETH JUDGE Facility: [facility]:[place] : 1950 Planned Disposition: Anticipated Discharge Date: Discharge Date: Expected LOS: Initial Reviewer: [id number] Initial Review Date: 06/29/2019 Generated: 06/29/19 1:02 pm Comments DCP- Discharge Planning Updated by [id number]: Kathie Luevano on 06/29/19 11:[address] Patient Name: JEANETH JUDGE Admission Status: Elective Accout number: [id number] Admission Date: 06-25-2019 : 1950 Admission Diagnosis: Attending: MEHRDAD CHATTERJEE Current LOS: 4 Anticipated DC Date: Planned Disposition: Primary Insurance: [employer] CHOICE PPO MCR ADVANT Discharge Planning Comments: CM met with patient at bedside after explaining CM role and obtaining verbal consent. STATES HAD SURGERY YESTERDAY. STATES PLANS TO DC TO HOME AND RESUME HH. DOESN'T REMEMBER NAME OF BUT [facility] DR. DONNELLY OFFICE SET IT UP. CM TO FOLLOW AND ASSIST. Juvenile Probation Officer: Kathie Luevano DCPIA - Discharge Planning Initial Assessment Updated by [id number]: Kathie Luevano on 06/29/19 11:59 am * Is the patient Alert and Oriented? Yes * PCP [facility] * Pharmacy [facility] * Preadmission Environment Home with Family * ADLs Independent * Community resources currently utilized Home Health * Please name any agencies selected above. DOESN'T REMEMBER THE NAME * Additional services required to return to the preadmission environment? No * Can the patient safely return to the preadmission environment? Yes * Has this patient been hospitalized within the prior 30 days at any hospital? No Patient Name: JEANETH JUDGE Page [phone] at 1202 All edits/amendments must be made on the electronic document DICTATION DATE: 06/29/191201 JOB SUPERINTENDENT: MAGI 06/29/191201 RPT#: [id number] DC DATE: STATUS: ADM IN [facility] [address] [facility] [address] END OF REPORT
--- NOTE | 2019-06-29 12:41 | NUR ---
AUSTIN DAWSON CALLED REGARDING COVERAGE FOR DVT OTHER THAN SCDS. PT TAKES COUMADIN AT HOME BUT IS ALLERGIC TO LOVENOX AND HEPARIN.
[2019-06-29 13:08] LABS: INR 1.19 (0.85-1.17); PROTIME 14.6 SECONDS (11.6-15.0)
--- NOTE | 2019-06-29 13:20 | NUR ---
Nutrition follow-up: Pt to surgery today for abscess debridement from malfunctioning J-tube. Labs reviewed WT: 171# Pt now assessed with severe malnutrition of chronic illness R/T gastroparesis AEB: 1. 5% weight loss in the last month (181# on May 19 - now 171#). 2. < 75% intake of estimated energy needs for > 1 month ProcalAmine PPN infusing @ 50 ml/hr at this time. RDN following.
--- NOTE | 2019-06-29 15:05 | NUR ---
SPOKE WITH SAMIR TRINIDAD PER DAUGHTER'S REQUEST TO START PATIENT BACK ON HALF OF AT HOME DAILY DOSE OF BUMEX. FRUIT AND VEGETABLE CLASSER STATED WILL LOOK AT MEDS AND POSSIBLY RESTART.
--- NOTE | 2019-06-29 16:45 | NUR ---
SPOKE WITH SAMIR TRINIDAD TO OBTAIN ORDERS FOR BREATHING TX Q4 SCHEDULED AND Q2PRN WELL ORDER FOR BENADRYL QHS PRN TO SLEEP.
--- NOTE | 2019-06-29 18:48 | NUR ---
RESTING IN BED. DENIES NEEDS AT THIS TIME. BED LOW. CALL LOUIS AND PERSONAL ITEMS IN REACH.
[2019-06-29 19:53] VITALS: BP 145/64
--- NOTE | 2019-06-29 22:00 | NUR ---
A&O X 4. PT REPORTS COUGH HAS BEEN VERY PRODUCTIVE, BUT NONE SEEN. PT REQUESTS PRN BREATHING TX. REQUESTS PRN SLEEPING MEDICATION AFTER TX. DENIES PAIN AT THIS TIME, WILL CONTINUE TO MONITOR.
--- NOTE | 2019-06-30 01:05 | NUR ---
I have reviewed this patient and I concur with the Shift Assessment completed by the Licensed Practical Nurse today this shift.
[2019-06-30 01:12] VITALS: BP 129/60
[2019-06-30 04:56] VITALS: BP 120/74
[2019-06-30 05:12] LABS: BASOPHILS 0.2 % (0-2); EOSINOPHILS 3.4 % (0-7); HEMOGLOBIN 8.7 g/dL (12-16); IMMATURE GRANULOCYTES 0.4 % (0-5); LYMPHOCYTES 16.7 % (15-50); MCH 30.9 pg (26.0-34.0); MCHC 32.2 g/dL (31.0-37.0); MCV 95.7 fL (80.0-100.0); MEAN PLATELET VOLUME 9.6 fL (7.4-10.4); MONOCYTES 10.6 % (2-11); NEUTROPHILS 68.7 % (40-80); RBC 2.82 10x6/uL (4.00-5.40); RDW 14.6 % (11.5-14.5); WBC 5.3 10x3/uL (4.8-10.8)
[2019-06-30 05:16] LABS: PLATELET COUNT 152 10x3/uL (130-400)
[2019-06-30 05:27] LABS: INR 1.24 (0.85-1.17); PROTIME 15.1 SECONDS (11.6-15.0)
[2019-06-30 05:44] LABS: ALBUMIN 1.6 g/dL (3.4-5.0); ALKALINE PHOSPHATASE 60 U/L (46-116); ALT (SGPT) 18 U/L (10-68); CALC OSMOLALITY 273 mosm/kg (275-300); CALCIUM 7.8 mg/dL (8.5-10.1); CARBON DIOXIDE 23.7 mmol/L (21.0-32.0); CHLORIDE - SERUM 105 mmol/L (98-107); CREATININE - SERUM 0.8 mg/dL (0.6-1.3); GLUCOSE 127 mg/dL (74-106); MAGNESIUM - SERUM 1.7 mg/dL (1.8-2.4); POTASSIUM - SERUM 3.7 mmol/L (3.5-5.1); PROTEIN - SERUM 5.5 g/dL (6.4-8.2); SODIUM 137 mmol/L (136-145); UREA NITROGEN 8 mg/dL (7-18); eGFR NON AFRICAN AMERICAN 75 mL/min (90-120)
--- NOTE | 2019-06-30 08:00 | NUR ---
ASSESSMENT PER FLOW SHEET. PT IS WITHOUT DISTRESS. FALL PREVENTION IN PLACE. MONITOR
[2019-06-30 08:31] VITALS: BP 133/55
[2019-06-30 12:27] VITALS: BP 126/68
--- NOTE | 2019-06-30 15:00 | MORECARE ---
CASE MANAGEMENT DISCHARGE SUMMARY PATIENT: JEANETH JUDGE UNIT: [id number] ADM DATE: 06/25/19 AGE: 69 : 48 SEX: F ROOM/BED: D.2229 AUTHOR: RAJAT MONDRAGON PHYSICIAN: REFERRING PHYSICIAN: MEHRDAD CHATTERJEE MD DATE OF SERVICE: 06/30/19 Discharge Plan Patient Name: JEANETH JUDGE Facility: [facility]:[place] : 1950 Planned Disposition: Anticipated Discharge Date: Discharge Date: Expected LOS: Initial Reviewer: [id number] Initial Review Date: 06/29/2019 Generated: 06/30/19 3:59 pm DCP- Discharge Planning Updated by [email or web address]: Kathie Luevano on 06/29/19 11:[address] Patient Name: JEANETH JUDGE Admission Status: Elective Accout number: [id number] Admission Date: 06-25-2019 : 1950 Admission Diagnosis: Attending: MEHRDAD CHATTERJEE Current LOS: 4 Anticipated DC Date: Planned Disposition: Primary Insurance: [employer] CHOICE PPO MCR ADVANT Discharge Planning Comments: CM met with patient at bedside after explaining CM role and obtaining verbal consent. STATES HAD SURGERY YESTERDAY. STATES PLANS TO DC TO HOME AND RESUME HH. DOESN'T REMEMBER NAME OF BUT STATES DR. DONNELLY OFFICE SET IT UP. CM TO FOLLOW AND ASSIST. Clerk Rating: Kathie Luevano DCPIA - Discharge Planning Initial Assessment Updated by [email or web address]: Kathie Luevano on 06/29/19 11:59 am * Is the patient Alert and Oriented? Yes * PCP [facility] * Pharmacy [facility] * Preadmission Environment Home with Family * ADLs Independent * Community resources currently utilized Home Health * Please name any agencies selected above. DOESN'T REMEMBER THE NAME * Additional services required to return to the preadmission environment? No * Can the patient safely return to the preadmission environment? Yes * Has this patient been hospitalized within the prior 30 days at any hospital? No Last DP export: 06/29/19 11:02 a Patient Name: JEANETH JUDGE Page [phone] at 1500 All edits/amendments must be made on the electronic document DICTATION DATE: 06/30/191458 TRAILHEAD CONSTRUCTION WORKER: MAGI 06/30/191458 RPT#: [id number] DC DATE: STATUS: ADM IN [facility] [address] [place] [address] END OF REPORT
[2019-06-30 16:37] VITALS: BP 121/65
--- NOTE | 2019-06-30 19:20 | NUR ---
A&O X 4, FAMILY AT BEDSIDE. REPORTS PAIN 04/22. REQUESTS NAUSEA MEDICATION. STATES HER BMs HAVE STILL BEEN LOOSE, BUT NOT LIQUIDY. DENIES FURTHER NEEDS AT THIS TIME.
[2019-06-30 20:18] VITALS: BP 122/80
[2019-07-01 00:44] VITALS: BP 135/63
--- NOTE | 2019-07-01 02:37 | NUR ---
I have reviewed this patient and I concur with the Shift Assessment completed by the Licensed Practical Nurse today this shift.
[2019-07-01 04:43] VITALS: BP 127/63
[2019-07-01 05:02] LABS: BASOPHILS 0 % (0-2); EOSINOPHILS 5.2 % (0-7); HEMATOCRIT 27.8 % (36.0-48.0); HEMOGLOBIN 8.8 g/dL (12-16); LYMPHOCYTES 20.8 % (15-50); MCH 30.6 pg (26.0-34.0); MCHC 31.7 g/dL (31.0-37.0); MCV 96.5 fL (80.0-100.0); MEAN PLATELET VOLUME 9.8 fL (7.4-10.4); MONOCYTES 12.5 % (2-11); NEUTROPHILS 61.5 % (40-80); PLATELET COUNT 172 10x3/uL (130-400); RBC 2.88 10x6/uL (4.00-5.40); RDW 14.9 % (11.5-14.5); WBC 4.2 10x3/uL (4.8-10.8)
[2019-07-01 05:19] LABS: INR 1.34 (0.85-1.17); PROTIME 16.1 SECONDS (11.6-15.0)
[2019-07-01 05:31] LABS: ALBUMIN 1.6 g/dL (3.4-5.0); ALKALINE PHOSPHATASE 60 U/L (46-116); BILIRUBIN - TOTAL 0.18 mg/dL (0.2-1.3); CALC OSMOLALITY 273 mosm/kg (275-300); CALCIUM 7.7 mg/dL (8.5-10.1); CARBON DIOXIDE 24.4 mmol/L (21.0-32.0); CHLORIDE - SERUM 105 mmol/L (98-107); CREATININE - SERUM 0.6 mg/dL (0.6-1.3); GLUCOSE 100 mg/dL (74-106); POTASSIUM - SERUM 3.8 mmol/L (3.5-5.1); PROTEIN - SERUM 5.6 g/dL (6.4-8.2); SODIUM 138 mmol/L (136-145); UREA NITROGEN 8 mg/dL (7-18); eGFR NON AFRICAN AMERICAN > 90 mL/min (90-120)
[2019-07-01 05:32] LABS: ALT (SGPT) 26 U/L (10-68)
--- NOTE | 2019-07-01 07:41 | NUR ---
PATIENT UP WITH ASSISTANCE TO RESTROOM, NO S/S OF DISTRESS, NO NEEDS VOICED, BED IN LOWEST POSITION, CL IN REACH CONTINUE WITH PLAN OF CARE
[2019-07-01 08:46] VITALS: BP 165/73
--- NOTE | 2019-07-01 11:40 | NUR ---
OT NOTE: PT EATING SNACK WHILE IN BED. ABLE TO PERFORM BED MOB WITH MIN/MOD ASSIST; SIT TO STAND WITH MIN ASSIST. ABLE TO AMB INTO HALLWAY WITH LINE HAUL DRIVER X 2 AND IV POLE X APPROX 75-100FT. TRANSFERRED TO CHAIR WITH MIN ASSIST. MOD ASSIST TO DOFF/GRACE SOCKS. REPORTED MODERATE AMOUNT OF SORENESS IN ABD AREA DURING MOVEMENT. LUIZ PEÑA, OTR/L
[2019-07-01 11:44] VITALS: BP 111/60; BP 111/690
--- NOTE | 2019-07-01 14:46 | NUR ---
OT NOTE: PT REQUIRED MINIMAL ASSIT FOR SUPINE TO SIT. PT COMPLETED ADL MOB WITH R/W. PT REQUIRED CGA. PT COMPLETED FACE/HAND WASH WITH SET UP AT [facility]. THANK YOU, VEDA HURD
--- NOTE | 2019-07-01 14:53 | MORECARE ---
CASE MANAGEMENT DISCHARGE SUMMARY PATIENT: JEANETH JUDGE UNIT: [id number] ADM DATE: 06/25/19 AGE: 69 : 48 SEX: F ROOM/BED: D.2229 AUTHOR: ALANNA,DOC PHYSICIAN: REFERRING PHYSICIAN: MEHRDAD CHATTERJEE MD DATE OF SERVICE: 07/01/19 Discharge Plan Patient Name: JEANETH JUDGE Facility: [facility]:[place] : 1950 Planned Disposition: Anticipated Discharge Date: Discharge Date: Expected LOS: Initial Reviewer: [email or web address] Initial Review Date: 06/29/2019 Generated: 07/01/19 3:53 pm Comments DCP- Discharge Planning Updated by [id number]: Kathie Luevano on 07/01/19 1:[address] Patient Name: JEANETH JUDGE Admission Status: Elective Accout number: [id number] Admission Date: 06-25-2019 : 1950 Admission Diagnosis:GASTROSTOMY MALFUNCTION Attending: MEHRDAD CHATTERJEE Current LOS: 6 Anticipated DC Date: Planned Disposition: Primary Insurance: [employer] CHOICE PPO MCR ADVANT Discharge Planning Comments: CM SPOKE WITH PATIENT AND HER DAUGHTER MECCA ABOUT DC PLANNING. THEY STATE THEY WOULD LIKE REPLACED BY [facility] IF INSURANCE WILL APPROVE. IF INSURANCE WILL NOT APPROVE THEN RESUME HH WITH [facility]. Director Statistical Programming: Kathie Luevano DCP- Discharge Planning Updated by [email or web address]: Kathie Luevano on 06/29/19 11:[address] Patient Name: JEANETH JUDGE Admission Status: Elective Accout number: [id number] Admission Date: 06-25-2019 : 1950 Admission Diagnosis: Attending: MEHRDAD CHATTERJEE Current LOS: 4 Anticipated DC Date: Planned Disposition: Primary Insurance: [employer] CHOICE PPO MCR ADVANT Discharge Planning Comments: CM met with patient at bedside after explaining CM role and obtaining verbal consent. STATES HAD SURGERY YESTERDAY. STATES PLANS TO DC TO HOME AND RESUME HH. DOESN'T REMEMBER NAME OF HH BUT STATES DR. DONNELLY OFFICE SET IT UP. CM TO FOLLOW AND ASSIST. Director Statistical Programming: Kathie Luevano DCPIA - Discharge Planning Initial Assessment Updated by [email or web address]: Kathie Luevano on 06/29/19 11:59 am * Is the patient Alert and Oriented? Yes * PCP [facility] * Pharmacy [facility] * Preadmission Environment Home with Family * ADLs Independent * Community resources currently utilized Home Health * Please name any agencies selected above. DOESN'T REMEMBER THE NAME * Additional services required to return to the preadmission environment? No * Can the patient safely return to the preadmission environment? Yes * Has this patient been hospitalized within the prior 30 days at any hospital? No Last DP export: 06/30/19 2:00 p Patient Name: JEANETH JUDGE Page [phone] at 1453 All edits/amendments must be made on the electronic document DICTATION DATE: 07/01/191452 SMART GRID ENGINEER: MAGI 07/01/191452 RPT#: [id number] DC DATE: STATUS: ADM IN [facility] [address] [place] [address] END OF REPORT
--- NOTE | 2019-07-01 14:57 | NUR ---
I have reviewed this patient and I concur with the Shift Assessment completed by the Licensed Practical Nurse today this shift.
--- NOTE | 2019-07-01 16:34 | NUR ---
Rehab Prescreening Consult recieved and the chart has been reviewed. She is [employer] managed Medicare and will require a preauth. All information will be submitted to them for their review. Cecilia Olmedo RN Clinical liaison, Rehab
--- NOTE | 2019-07-01 19:30 | NUR ---
PT SITTING UP IN BED WITHOUT DISTRESS, AOX4. RIGHT CHEST PORT INFUSING PROCAL @ 50 AND NS @ 10. DRESSING TO ABD CDI. ASSISTED PT UP TO BATHROOM AND BACK TO BED. FALL PRECAUTIONS IN PLACE, BED ALARM ON. REFUSES YELLOW GOWN, WEARING OWN PAJAMAS. SCDS ON. DENIES NEEDS. CL IN REACH, WILL CTM
[2019-07-02] VITALS: BP 133/61
--- NOTE | 2019-07-02 01:30 | NUR ---
ASSISTED PT UP TO BATHROOM AND BACK TO BED. SLIGHTLY BLOODY DRAINAGE FROM ABD DRESSING. REINFORCED DRESSING. REQUESTED AND GIVEN EDDIE CRACKERS AND PB. DENIES OTHER NEEDS. CL IN REACH, WILL CTM
[2019-07-02 06:00] VITALS: BP 136/58
[2019-07-02 06:35] LABS: BASOPHILS 0 % (0-2); HEMATOCRIT 27.4 % (36.0-48.0); HEMOGLOBIN 8.7 g/dL (12-16); IMMATURE GRANULOCYTES 0.7 % (0-5); LYMPHOCYTES 16.8 % (15-50); MCH 30.6 pg (26.0-34.0); MCHC 31.8 g/dL (31.0-37.0); MCV 96.5 fL (80.0-100.0); MEAN PLATELET VOLUME 9.9 fL (7.4-10.4); MONOCYTES 15.1 % (2-11); NEUTROPHILS 62.4 % (40-80); PLATELET COUNT 168 10x3/uL (130-400); RBC 2.84 10x6/uL (4.00-5.40); RDW 14.7 % (11.5-14.5)
[2019-07-02 06:42] LABS: ALBUMIN 1.8 g/dL (3.4-5.0); ALKALINE PHOSPHATASE 67 U/L (46-116); ALT (SGPT) 28 U/L (10-68); BILIRUBIN - TOTAL 0.22 mg/dL (0.2-1.3); CALC OSMOLALITY 281 mosm/kg (275-300); CALCIUM 7.7 mg/dL (8.5-10.1); CARBON DIOXIDE 26.2 mmol/L (21.0-32.0); CHLORIDE - SERUM 108 mmol/L (98-107); CREATININE - SERUM 0.7 mg/dL (0.6-1.3); GLUCOSE 112 mg/dL (74-106); MAGNESIUM - SERUM 1.7 mg/dL (1.8-2.4); POTASSIUM - SERUM 3.7 mmol/L (3.5-5.1); PROTEIN - SERUM 5.8 g/dL (6.4-8.2); SODIUM 142 mmol/L (136-145); UREA NITROGEN 8 mg/dL (7-18); eGFR NON AFRICAN AMERICAN 87 mL/min (90-120)
[2019-07-02 07:17] LABS: INR 1.44 (0.85-1.17)
--- NOTE | 2019-07-02 07:37 | NUR ---
PT RESTING IN BED WITH EYES CLOSED, NO S/S OF DISTRESS CURENTLY, WILL CONT TO MONITOR. PORT LOCATED TO RIGHT CHEST RUNNING PROCAL @ 50ML/HR AND NS @ KVO. DENIES NEEDS AT THIS TIME. BED LOW, RAIL UP, CALL LIGHT IN REACH.
[2019-07-02 08:47] VITALS: BP 172/78
--- NOTE | 2019-07-02 12:45 | NUR ---
Nutrition follow-up: Visited with pt during lunch. Pt is requesting low fat, low residue diet due to gastroparesis. Pt is trying to eat better; po intake ~50% average of meals Labs reviewed Wt: 170# Will continue to provide food choices and honor food preferences. RDN changed diet order to relect pt request. RDN following.
[2019-07-02 12:50] VITALS: BP 148/75
[2019-07-02 16:45] VITALS: BP 145/68
--- NOTE | 2019-07-02 18:00 | NUR ---
WOUND VAC PLACED TO ABDOMEN USING BLACK SPONGE WITHOUT DIFFICULTY. WOUND IS APPROXIMATELY 4CM X 4CM AND 6CM WITH TUNNELING TO UPPER EDGE OF WOUND. SKIN IS PINK AND VIABLE. NO ORDOR DETECTED. TOLERATED WITHOUT C/O.
--- NOTE | 2019-07-02 19:45 | NUR ---
PT SITTING UP IN BED WITHOUT DISTRESS, AOX4. RIGHT CHEST PORT INFUSING PROCAL @ 50. PT STATES PAIN 5/10 IN ABD, WOUND VAC IN PLACE. WILL GIVE PAIN MEDS ORDERED, SEE MAR. ASSISTED UP TO BATHROOM AND BACK TO BED. BED ALARM ON. EATING QHS SNACK. DENIES FURTHER NEEDS. CL IN REACH, WILL CTM
[2019-07-02 20:00] VITALS: BP 135/53
[2019-07-03] VITALS: BP 159/84
[2019-07-03 04:00] VITALS: BP 147/78
[2019-07-03 06:01] LABS: BASOPHILS 0.2 % (0-2); EOSINOPHILS 3.6 % (0-7); HEMATOCRIT 29.5 % (36.0-48.0); HEMOGLOBIN 9.4 g/dL (12-16); IMMATURE GRANULOCYTES 0.4 % (0-5); LYMPHOCYTES 16.6 % (15-50); MCH 30.9 pg (26.0-34.0); MCHC 31.9 g/dL (31.0-37.0); MEAN PLATELET VOLUME 9.9 fL (7.4-10.4); MONOCYTES 12.1 % (2-11); NEUTROPHILS 67.1 % (40-80); PLATELET COUNT 198 10x3/uL (130-400); RBC 3.04 10x6/uL (4.00-5.40); WBC 4.5 10x3/uL (4.8-10.8)
[2019-07-03 06:37] LABS: ALKALINE PHOSPHATASE 67 U/L (46-116); ALT (SGPT) 25 U/L (10-68); BILIRUBIN - TOTAL 0.15 mg/dL (0.2-1.3); CALC OSMOLALITY 282 mosm/kg (275-300); CALCIUM 7.8 mg/dL (8.5-10.1); CARBON DIOXIDE 23.6 mmol/L (21.0-32.0); CHLORIDE - SERUM 108 mmol/L (98-107); CREATININE - SERUM 0.7 mg/dL (0.6-1.3); GLUCOSE 113 mg/dL (74-106); MAGNESIUM - SERUM 1.8 mg/dL (1.8-2.4); POTASSIUM - SERUM 4.1 mmol/L (3.5-5.1); PROTEIN - SERUM 5.6 g/dL (6.4-8.2); SODIUM 142 mmol/L (136-145); UREA NITROGEN 10 mg/dL (7-18); eGFR NON AFRICAN AMERICAN 87 mL/min (90-120)
[2019-07-03 06:38] LABS: INR 1.45 (0.85-1.17); PROTIME 17.1 SECONDS (11.6-15.0)
[2019-07-03 08:47] VITALS: BP 154/80
--- NOTE | 2019-07-03 10:57 | MORECARE ---
CASE MANAGEMENT DISCHARGE SUMMARY PATIENT: JEANETH JUDGE UNIT: [id number] ADM DATE: 06/25/19 AGE: 69 : 48 SEX: F ROOM/BED: D.2213 AUTHOR: ALANNA,DOC PHYSICIAN: REFERRING PHYSICIAN: MEHRDAD CHATTERJEE MD DATE OF SERVICE: 07/03/19 Discharge Plan Patient Name: JEANETH JUDGE Facility: [facility]:[place] : 1950 Planned Disposition: Anticipated Discharge Date: Discharge Date: Expected LOS: Initial Reviewer: [email or web address] Initial Review Date: 06/29/2019 Generated: 07/03/19 11:57 am DCP- Discharge Planning Updated by [email or web address]: Kathie Luevano on 07/01/19 1:[address] Patient Name: JEANETH JUDGE Admission Status: Elective Accout number: [id number] Admission Date: 06-25-2019 : 1950 Admission Diagnosis:GASTROSTOMY MALFUNCTION Attending: MEHRDAD CHATTERJEE Current LOS: 6 Anticipated DC Date: Planned Disposition: Primary Insurance: HU[employer]NA CHOICE PPO MCR ADVANT Discharge Planning Comments: CM SPOKE WITH PATIENT AND HER DAUGHTER MECCA ABOUT DC PLANNING. THEY STATE THEY WOULD LIKE [facility] IF INSURANCE WILL APPROVE. IF INSURANCE WILL NOT APPROVE THEN RESUME HH WITH [facility]. Fence Builder: Kathie Luevano DCP- Discharge Planning Updated by [email or web address]: Kathie Luevano on 06/29/19 11:[address] Patient Name: JEANETH JUDGE Admission Status: Elective Accout number: [id number] Admission Date: 06-25-2019 : 1950 Admission Diagnosis: Attending: MEHRDAD CHATTERJEE Current LOS: 4 Anticipated DC Date: Planned Disposition: Primary Insurance: HUMANA CHOICE PPO MCR ADVANT Discharge Planning Comments: CM met with patient at bedside after explaining CM role and obtaining verbal consent. STATES HAD SURGERY YESTERDAY. STATES PLANS TO DC TO HOME AND RESUME HH. DOESN'T REMEMBER NAME OF HH BUT STATES DR. DONNELLY OFFICE SET IT UP. CM TO FOLLOW AND ASSIST. Fence Builder: Kathie Luevano DCPIA - Discharge Planning Initial Assessment Updated by [email or web address]: Kathie Luevano on 06/29/19 11:59 am * Is the patient Alert and Oriented? Yes * PCP [facility] * [facility] * Preadmission Environment Home with Family * ADLs Independent * Community resources currently utilized Home Health * Please name any agencies selected above. DOESN'T REMEMBER THE NAME * Additional services required to return to the preadmission environment? No * Can the patient safely return to the preadmission environment? Yes * Has this patient been hospitalized within the prior 30 days at any hospital? No External Providers External Provider: [facility] Next Contact Date: Service Request Date: Service Type: Resolution: Reviewer: Comments: Last DP export: 07/01/19 1:53 p Patient Name: JEANETH JUDGE Page [phone] at 1057 All edits/amendments must be made on the electronic document DICTATION DATE: 07/03/191056 MECHANICAL DESIGNER: MAGI 07/03/197 RPT#: [id number] DC DATE: STATUS: ADM IN [facility] [address] [place] [address] END OF REPORT
[2019-07-03 13:20] VITALS: BP 143/77
--- NOTE | 2019-07-03 13:55 | NUR ---
Rehab Note- Received call from Silvana with [facility] stating that the patient had been denied an acute inpatient rehab stay per their medical record assistant- that her care could be meet at a lower level such as a SNF. A peer to peer can be set up by [address] [place] [address] on 07/08/19. Stated she also spoke with the acute side of the hospital and provided the peer to peer information & contact #. Spoke with TERRY Cheung & stated Silvana from [facility] had not spoken with her. Informed TERRY Cheung of the denial. Thank you for this referral! Pippa Rahman RN Clinical Liaison, [facility] Rehab
--- NOTE | 2019-07-03 15:01 | NUR ---
PT VERY LATHARGIC BUT EASILY AROUSED AND AGREEABLE TO PARTICIPATE IN THERAPY. ABLE TO PERFORM IN ROOM AMBULAITON WITH CGA AND FULL ASSIST WITH IV AND WOUND VAC. GROOMING TASKS AT SINK WITH CGA. BED MOB WITH SPV; AMB WITH MIN ASSIST X 150 FT. TRANSFERED TO CHAIR AND BED WITH MIN ASSIST. SAT UP IN CHAIR FOR GREATER THAN AN HR. LUIZ PEÑA, OTR/L
[2019-07-03 16:07] VITALS: BP 181/84
--- NOTE | 2019-07-03 18:43 | NUR ---
I have reviewed this patient and I concur with the Shift Assessment completed by the Licensed Practical Nurse today this shift.
--- NOTE | 2019-07-03 19:15 | NUR ---
RECEIVED CARE FROM DAY NURSE. EYES CLOSED, RESP EVEN AND UNLABORED. CALL LIGHT AT SIDE. IV INFUSING PER ORDER TO PATENT RIGHT IP. WOUND VAC WITH GOOD SEAL AND SUCTION TO ABD.
[2019-07-03 20:00] VITALS: BP 153/72
[2019-07-04] VITALS: BP 173/83
[2019-07-04 04:00] VITALS: BP 149/80
--- NOTE | 2019-07-04 04:24 | NUR ---
C/O URGENCY OF URINE. REPORTS NO BURNING WITH URINATION. ORDER ENTERED FOR UA.
[2019-07-04 05:51] LABS: INR 1.7 (0.85-1.17); PROTIME 19.4 SECONDS (11.6-15.0)
[2019-07-04 05:54] LABS: ALBUMIN 1.9 g/dL (3.4-5.0); ALKALINE PHOSPHATASE 65 U/L (46-116); ALT (SGPT) 21 U/L (10-68); BILIRUBIN - TOTAL 0.18 mg/dL (0.2-1.3); CALC OSMOLALITY 284 mosm/kg (275-300); CALCIUM 7.7 mg/dL (8.5-10.1); CARBON DIOXIDE 25.1 mmol/L (21.0-32.0); CHLORIDE - SERUM 110 mmol/L (98-107); CREATININE - SERUM 0.6 mg/dL (0.6-1.3); GLUCOSE 98 mg/dL (74-106); MAGNESIUM - SERUM 1.8 mg/dL (1.8-2.4); POTASSIUM - SERUM 3.9 mmol/L (3.5-5.1); PROTEIN - SERUM 5.4 g/dL (6.4-8.2); SODIUM 144 mmol/L (136-145); UREA NITROGEN 8 mg/dL (7-18); eGFR NON AFRICAN AMERICAN > 90 mL/min (90-120)
[2019-07-04 06:01] LABS: BASOPHILS 0 % (0-2); HEMATOCRIT 27.9 % (36.0-48.0); HEMOGLOBIN 8.8 g/dL (12-16); IMMATURE GRANULOCYTES 0.2 % (0-5); LYMPHOCYTES 19.5 % (15-50); MCH 30.7 pg (26.0-34.0); MCHC 31.5 g/dL (31.0-37.0); MCV 97.2 fL (80.0-100.0); MEAN PLATELET VOLUME 9.9 fL (7.4-10.4); MONOCYTES 12.3 % (2-11); PLATELET COUNT 189 10x3/uL (130-400); RBC 2.87 10x6/uL (4.00-5.40); WBC 4.5 10x3/uL (4.8-10.8)
[2019-07-04 09:14] VITALS: BP 201/97
[2019-07-04 13:14] LABS: APPEARANCE CLEAR (CLEAR); BILIRUBIN NEGATIVE (NEGATIVE); COLOR YELLOW (YELLOW); GLUCOSE NEGATIVE (NEGATIVE); KETONE NEGATIVE (NEGATIVE); NITRITE NEGATIVE (NEGATIVE); PROTEIN NEGATIVE (NEGATIVE); SPECIFIC GRAVITY 1.015 (1.005-1.020); UROBILINOGEN NORMAL (NORMAL)
[2019-07-04 13:20] LABS: BACTERIA FEW /hpf (NEGATIVE); EPITHELIAL CELLS 0-5 /hpf (0-5); WHITE CELLS - URINE 0-5 /hpf (NEGATIVE)
[2019-07-04 13:25] VITALS: BP 129/61
[2019-07-04 17:19] VITALS: BP 137/57
--- NOTE | 2019-07-04 19:15 | NUR ---
RECEIVED CARE FROM DAY NURSE. LYING IN BED WITH EYES CLOSED. RESP EVEN AND UNLABORED. CALL LIGHT AT SIDE. IV INFUSING PER ORDER TO PATENT RIGHT IP. WOUND VAC IN PLACE TO ABD.
[2019-07-04 20:00] VITALS: BP 135/66
[2019-07-05] VITALS: BP 152/73
[2019-07-05 04:00] VITALS: BP 143/70
[2019-07-05 06:22] LABS: BASOPHILS 0.2 % (0-2); EOSINOPHILS 6.3 % (0-7); HEMATOCRIT 28.9 % (36.0-48.0); HEMOGLOBIN 9.3 g/dL (12-16); IMMATURE GRANULOCYTES 0.2 % (0-5); LYMPHOCYTES 17.2 % (15-50); MCHC 32.2 g/dL (31.0-37.0); MCV 96.3 fL (80.0-100.0); MEAN PLATELET VOLUME 10.1 fL (7.4-10.4); MONOCYTES 9.7 % (2-11); NEUTROPHILS 66.4 % (40-80); PLATELET COUNT 207 10x3/uL (130-400); WBC 5.1 10x3/uL (4.8-10.8)
[2019-07-05 07:02] LABS: ALKALINE PHOSPHATASE 66 U/L (46-116); ALT (SGPT) 21 U/L (10-68); BILIRUBIN - TOTAL 0.18 mg/dL (0.2-1.3); CALC OSMOLALITY 283 mosm/kg (275-300); CALCIUM 7.6 mg/dL (8.5-10.1); CARBON DIOXIDE 24.3 mmol/L (21.0-32.0); CHLORIDE - SERUM 109 mmol/L (98-107); CREATININE - SERUM 0.7 mg/dL (0.6-1.3); GLUCOSE 99 mg/dL (74-106); MAGNESIUM - SERUM 1.8 mg/dL (1.8-2.4); POTASSIUM - SERUM 4.1 mmol/L (3.5-5.1); PROTEIN - SERUM 5.4 g/dL (6.4-8.2); SODIUM 143 mmol/L (136-145); eGFR NON AFRICAN AMERICAN 87 mL/min (90-120)
[2019-07-05 07:03] LABS: UREA NITROGEN 11 mg/dL (7-18)
[2019-07-05 07:19] LABS: INR 1.98 (0.85-1.17); PROTIME 21.8 SECONDS (11.6-15.0)
[2019-07-05 08:21] VITALS: BP 182/81
[2019-07-05 11:57] VITALS: BP 153/57
--- NOTE | 2019-07-05 16:33 | NUR ---
I have reviewed this patient and I concur with the Shift Assessment completed by the Licensed Practical Nurse today this shift.
[2019-07-05 16:48] VITALS: BP 162/71
--- NOTE | 2019-07-05 19:15 | NUR ---
RECEIVED CARE FROM DAY NURSE. LYING IN BED WITH EYES CLOSED. RESP EVEN AND UNLABORED. CALL LIGHT AT SIDE. IV INFUSING PER ORDER TO PATENT RIGHT IP. WOUND VAC IN PLACE WITH GOOD SEAL.
[2019-07-05 21:00] VITALS: BP 169/76
--- NOTE | 2019-07-06 01:00 | NUR ---
I have reviewed this patient and I concur with the Shift Assessment completed by the Licensed Practical Nurse today this shift.
[2019-07-06 01:33] VITALS: BP 150/84
[2019-07-06 04:00] VITALS: BP 132/63
[2019-07-06 06:43] LABS: BASOPHILS 0.2 % (0-2); EOSINOPHILS 4.2 % (0-7); HEMATOCRIT 30.2 % (36.0-48.0); HEMOGLOBIN 9.8 g/dL (12-16); IMMATURE GRANULOCYTES 0.3 % (0-5); LYMPHOCYTES 18.4 % (15-50); MCH 31.1 pg (26.0-34.0); MCHC 32.5 g/dL (31.0-37.0); MCV 95.9 fL (80.0-100.0); MONOCYTES 10.4 % (2-11); NEUTROPHILS 66.5 % (40-80); PLATELET COUNT 232 10x3/uL (130-400); RBC 3.15 10x6/uL (4.00-5.40); RDW 15.3 % (11.5-14.5); WBC 6.2 10x3/uL (4.8-10.8)
[2019-07-06 07:06] LABS: ALBUMIN 2.1 g/dL (3.4-5.0); ALKALINE PHOSPHATASE 70 U/L (46-116); ALT (SGPT) 21 U/L (10-68); BILIRUBIN - TOTAL 0.18 mg/dL (0.2-1.3); CALC OSMOLALITY 282 mosm/kg (275-300); CALCIUM 8.3 mg/dL (8.5-10.1); CARBON DIOXIDE 26.5 mmol/L (21.0-32.0); CHLORIDE - SERUM 107 mmol/L (98-107); CREATININE - SERUM 0.6 mg/dL (0.6-1.3); GLUCOSE 89 mg/dL (74-106); MAGNESIUM - SERUM 1.9 mg/dL (1.8-2.4); POTASSIUM - SERUM 3.4 mmol/L (3.5-5.1); PROTEIN - SERUM 6.1 g/dL (6.4-8.2); SODIUM 143 mmol/L (136-145); UREA NITROGEN 10 mg/dL (7-18); eGFR NON AFRICAN AMERICAN > 90 mL/min (90-120)
[2019-07-06 07:30] LABS: INR 1.89 (0.85-1.17); PROTIME 21.1 SECONDS (11.6-15.0)
[2019-07-06 08:15] VITALS: BP 117/81; BP 17/81
[2019-07-06] MEDS ORDERED: COUMADIN3 MG PO (09:37)
[2019-07-06] MEDS ORDERED: LEVOFLOXACIN500 MG PO ×2 (09:39→12:22)
[2019-07-06 12:15] VITALS: BP 130/67
[2019-07-06] MEDS ORDERED: DIFLUCAN150 MG PO (12:22)
--- NOTE | 2019-07-06 12:36 | MORECARE ---
CASE MANAGEMENT DISCHARGE SUMMARY PATIENT: JEANETH JUDGE UNIT: [id number] ADM DATE: 06/25/19 AGE: 69 : 48 SEX: F ROOM/BED: D.2213 AUTHOR: ALANNA,DOC PHYSICIAN: REFERRING PHYSICIAN: MEHRDAD CHATTERJEE MD DATE OF SERVICE: 07/06/19 Discharge Plan Patient Name: JEANETH JUDGE Facility: [facility]:[place] : 1950 Planned Disposition: Anticipated Discharge Date: Discharge Date: Expected LOS: Initial Reviewer: [email or web address] Initial Review Date: 06/29/2019 Generated: 07/06/19 1:36 pm Comments DCP- Discharge Planning Updated by [id number]: Lea Youngblood on 07/06/19 11:[address] inpatient rehab has been denied, wound vac from [facility] at bedside, imm served and explained. Patient to dc home with home health today DCP- Discharge Planning Updated by [email or web address]: Kathie Luevano on 07/01/19 1:[address] Patient Name: JEANETH JUDGE Admission Status: Elective Accout number: [id number] Admission Date: 06-25-2019 : 1950 Admission Diagnosis:GASTROSTOMY MALFUNCTION Attending: MEHRDAD CHATTERJEE Current LOS: 6 Anticipated DC Date: Planned Disposition: Primary Insurance: HU[employer]NA CHOICE PPO MCR ADVANT Discharge Planning Comments: CM SPOKE WITH PATIENT AND HER DAUGHTER MECCA ABOUT DC PLANNING. THEY STATE THEY WOULD LIKE [facility] IF INSURANCE WILL APPROVE. IF INSURANCE WILL NOT APPROVE THEN RESUME HH WITH [facility]. Mechanical And Auto Body Car Checker: Kathie Luevano DCP- Discharge Planning Updated by [email or web address]: Kathie Luevano on 06/29/19 11:[address] Patient Name: JEANETH JUDGE Admission Status: Elective Accout number: [id number] Admission Date: 06-25-2019 : 1950 Admission Diagnosis: Attending: MEHRDDA CHATTERJEE Current LOS: 4 Anticipated DC Date: Planned Disposition: Primary Insurance: HU[employer]NA CHOICE PPO MCR ADVANT Discharge Planning Comments: CM met with patient at bedside after explaining CM role and obtaining verbal consent. STATES HAD SURGERY YESTERDAY. STATES PLANS TO DC TO HOME AND RESUME HH. DOESN'T REMEMBER NAME OF HH BUT STATES DR. DONNELLY OFFICE SET IT UP. CM TO FOLLOW AND ASSIST. Mechanical And Auto Body Car Checker: Kathie Luevano DCPIA - Discharge Planning Initial Assessment Updated by [email or web address]: Kathie Luevano on 06/29/19 11:59 am * Is the patient Alert and Oriented? Yes * PCP [facility] * Pharmacy [facility] * Preadmission Environment Home with Family * ADLs Independent * Community resources currently utilized Home Health * Please name any agencies selected above. DOESN'T REMEMBER THE NAME * Additional services required to return to the preadmission environment? No * Can the patient safely return to the preadmission environment? Yes * Has this patient been hospitalized within the prior 30 days at any hospital? No Coverage Notice Reviewer: [id number] Rex Youngblood Notice Issued Date-Time: 07/06/2019 11:55 Notice Type: IM Discharge Notice Notice Delivered To: Patient Relationship to Patient: Lumber Bearer Name: Delivery Method: HAND - Hand Delivered Hayley Days: Prior Verbal Notification: Recipient Understood Notice: Yes Recipient Signature: Yes Med Rec Note Co-signed by Attending: Coverage Notice Comment: Last DP export: 07/03/19 9:57 a Patient Name: JEANETH JUDGE Page [phone] at 1236 All edits/amendments must be made on the electronic document DICTATION DATE: 07/06/19 1236 [place]ACH ATTENDANT: MAGI 07/06/19 1236 RPT#: [id number] DC DATE: STATUS: ADM IN [facility] [address] [place] [address] END OF REPORT
--- NOTE | 2019-07-06 15:00 | NUR ---
OT NOTE: PT COMPLETED SUPINE TO SIT SPV. PT COMPLETED SIT TO STAND WITH SBA. PT COMPLETED ADL MOB WITH MIN A FOR EQUIPMENT MANAGEMENT. PT COMPLETED TOILETING TASKS AND HYGIENE WITH SBA. THANK YOU, VEDA HURD
--- NOTE | 2019-07-06 16:54 | MORECARE ---
CASE MANAGEMENT DISCHARGE SUMMARY PATIENT: JEANETH JUDGE UNIT: [id number] ADM DATE: 06/25/19 AGE: 69 : 48 SEX: F ROOM/BED: D.2213 AUTHOR: ALANNA,DOC PHYSICIAN: REFERRING PHYSICIAN: MEHRDAD CHATTERJEE MD DATE OF SERVICE: 07/06/19 Discharge Plan Patient Name: JEANETH JUDGE Facility: [facility]:[place] : 1950 Planned Disposition: Anticipated Discharge Date: Discharge Date: Expected LOS: Initial Reviewer: [email or web address] Initial Review Date: 06/29/2019 Generated: 07/06/19 5:54 pm Comments DCP- Discharge Planning Updated by [email or web address]: Lea Youngblood on 07/06/19 11:[address] inpatient rehab has been denied, wound vac from [facility] at bedside, imm served and explained. Patient to dc home with home health today DCP- Discharge Planning Updated by [email or web address]: Kathie Luevano on 07/01/19 1:[address] Patient Name: JEANETH JUDGE Admission Status: Elective Accout number: [id number] Admission Date: 06-25-2019 : 1950 Admission Diagnosis:GASTROSTOMY MALFUNCTION Attending: MEHRDAD CHATTERJEE Current LOS: 6 Anticipated DC Date: Planned Disposition: Primary Insurance: [employer]NA CHOICE PPO MCR ADVANT Discharge Planning Comments: CM SPOKE WITH PATIENT AND HER DAUGHTER MECCA ABOUT DC PLANNING. THEY STATE THEY WOULD LIKE [facility] IF INSURANCE WILL APPROVE. IF INSURANCE WILL NOT APPROVE THEN RESUME HH WITH [facility]. Manufacturing Process Technician: Kathie Luevano DCP- Discharge Planning Updated by [email or web address]: Kathie Luevano on 06/29/19 11:[address] Patient Name: JEANETH JUDGE Admission Status: Elective Accout number: [id number] Admission Date: 06-25-2019 : 1950 Admission Diagnosis: Attending: MEHRDAD CHATTERJEE Current LOS: 4 Anticipated DC Date: Planned Disposition: Primary Insurance: HUMANA CHOICE PPO MCR ADVANT Discharge Planning Comments: CM met with patient at bedside after explaining CM role and obtaining verbal consent. STATES HAD SURGERY YESTERDAY. STATES PLANS TO DC TO HOME AND RESUME HH. DOESN'T REMEMBER NAME OF HH BUT STATES DR. DONNELLY OFFICE SET IT UP. CM TO FOLLOW AND ASSIST. Manufacturing Process Technician: Kathie Luevano DCPIA - Discharge Planning Initial Assessment Updated by [email or web address]: Kathie Luevano on 06/29/19 11:59 am * Is the patient Alert and Oriented? Yes * PCP [facility] * Pharmacy [facility] * Preadmission Environment Home with Family * ADLs Independent * Community resources currently utilized Home Health * Please name any agencies selected above. DOESN'T REMEMBER THE NAME * Additional services required to return to the preadmission environment? No * Can the patient safely return to the preadmission environment? Yes * Has this patient been hospitalized within the prior 30 days at any hospital? No External Providers External Provider: [facility] Contact Date: Service Request Date: Service Type: Resolution: Reviewer: Comments: Coverage Notice Reviewer: [id number] Rex Youngblood Notice Issued Date-Time: 07/06/2019 11:55 Notice Type: IM Discharge Notice Notice Delivered To: Patient Relationship to Patient: Clinical Operations Leader Name: Delivery Method: HAND - Hand Delivered Hayley Days: Prior Verbal Notification: Recipient Understood Notice: Yes Recipient Signature: Yes Med Rec Note Co-signed by Attending: Coverage Notice Comment: Last DP export: 07/06/19 11:36 a Patient Name: JEANETH JUDGE Page 53882 at 1654 All edits/amendments must be made on the electronic document DICTATION DATE: 07/06/191653 BLACKENER: MAGI 07/06/191653 RPT#: [id number] DC DATE: STATUS: ADM IN [facility] [address] [place] [address] END OF REPORT
--- NOTE | 2019-07-06 20:00 | NUR ---
A/O WITH NO SIGNS OF ACUTE DISTRESS NOTED. FLUIDS RUNNING INTO RT PORT. WOUND VAC TO THE MID ABDOMEN WITH REDNESS NOTED AROUND SITE. DENIES NEEDS AT THIS TIME. CONTINUE WITH PLAN OF CARE.
[2019-07-06 20:34] VITALS: BP 162/62
[2019-07-07 01:07] VITALS: BP 126/80
[2019-07-07 04:59] VITALS: BP 163/73
[2019-07-07 06:04] LABS: BASOPHILS 0.2 % (0-2); HEMATOCRIT 28.1 % (36.0-48.0); IMMATURE GRANULOCYTES 0.4 % (0-5); LYMPHOCYTES 23.6 % (15-50); MCH 31.1 pg (26.0-34.0); MCV 97.2 fL (80.0-100.0); MEAN PLATELET VOLUME 9.9 fL (7.4-10.4); MONOCYTES 9.1 % (2-11); NEUTROPHILS 62.7 % (40-80); RBC 2.89 10x6/uL (4.00-5.40); RDW 15.4 % (11.5-14.5); WBC 5.5 10x3/uL (4.8-10.8)
[2019-07-07 06:19] LABS: PLATELET COUNT 184 10x3/uL (130-400)
[2019-07-07 06:34] LABS: ALBUMIN 1.8 g/dL (3.4-5.0); ALKALINE PHOSPHATASE 59 U/L (46-116); ALT (SGPT) 18 U/L (10-68); BILIRUBIN - TOTAL 0.15 mg/dL (0.2-1.3); CALC OSMOLALITY 276 mosm/kg (275-300); CALCIUM 7.4 mg/dL (8.5-10.1); CARBON DIOXIDE 25.6 mmol/L (21.0-32.0); CHLORIDE - SERUM 107 mmol/L (98-107); CREATININE - SERUM 0.6 mg/dL (0.6-1.3); GLUCOSE 90 mg/dL (74-106); PROTEIN - SERUM 5.5 g/dL (6.4-8.2); SODIUM 139 mmol/L (136-145); UREA NITROGEN 10 mg/dL (7-18); eGFR NON AFRICAN AMERICAN > 90 mL/min (90-120)
[2019-07-07 06:35] LABS: POTASSIUM - SERUM 4.2 mmol/L (3.5-5.1)
--- NOTE | 2019-07-07 07:00 | NUR ---
ALERT AND ORIENTED, RESTING IN BED. NO C/O PAIN. NO S/S OF ACUTE DISTRESS NOTED. POD #8 PEG TUBE ABCESS WITH WOUND VAC. SCDS PRESENT. RIGHT CHEST PORT, NS INFUSING @ 10ML/HR. SITE PATENT WITHOUT REDNESS OR SWELLING. PT DENIES ANY NEEDS AT THIS TIME. CALL LIGHT IN REACH. WILL CONTINUE TO MONITOR.
[2019-07-07 07:55] VITALS: BP 130/84
[2019-07-07 09:29] LABS: INR 2.41 (0.85-1.17); PROTIME 25.5 SECONDS (11.6-15.0)
[2019-07-07 13:30] VITALS: BP 170/90
--- NOTE | 2019-07-07 15:30 | NUR ---
OT NOTE: PT COMPLETED BED MOB WITH SBA. PT COMPLETED SITTING BALANCE WITH SPV. PT COMPLETED STANDING BALANCE WITH SBA/CGA. PT COMPLETED FACE WASH WITH SET UP. THANK YOU, VEDA HURD
--- NOTE | 2019-07-07 18:00 | NUR ---
I have reviewed this patient and I concur with the Shift Assessment completed by the Licensed Practical Nurse today this shift.
[2019-07-07 18:24] VITALS: BP 150/73
--- NOTE | 2019-07-07 18:48 | NUR ---
ALERT AND ORIENTED, SITTING UP IN BED. NO C/O PAIN. NO S/S OF ACUTE DISTRESS NOTED. CALL LIGHT IN REACH. PT DENIES ANY NEEDS AT THIS TIME.
--- NOTE | 2019-07-07 20:00 | NUR ---
LAYING IN BED A/O WITH NO SIGNS OF ACUTE DISTRESS. RT CHEST PORT ACCESSED. WOUND VAC TO ABDOMEN WITH SOME REDNESS NOTED AROUND SITE. DENIES FURTHER NEEDS. CONTINUE WITH PLAN OF CARE.
[2019-07-07 21:28] VITALS: BP 162/71
[2019-07-08 01:13] VITALS: BP 149/86
--- NOTE | 2019-07-08 02:00 | NUR ---
CHANGED WOUND VAC TO THE ABDOMEN. WOUND IS PINK WITH SOME REDNESS AROUND WOUND. NEW DRESSING APLLIED. CONTINUE WITH PLAN OF CARE.
[2019-07-08 05:45] VITALS: BP 134/64
[2019-07-08 06:58] LABS: ALKALINE PHOSPHATASE 65 U/L (46-116); ALT (SGPT) 15 U/L (10-68); BILIRUBIN - TOTAL 0.19 mg/dL (0.2-1.3); CALC OSMOLALITY 282 mosm/kg (275-300); CALCIUM 7.4 mg/dL (8.5-10.1); CARBON DIOXIDE 23.9 mmol/L (21.0-32.0); CHLORIDE - SERUM 110 mmol/L (98-107); CREATININE - SERUM 0.6 mg/dL (0.6-1.3); GLUCOSE 83 mg/dL (74-106); POTASSIUM - SERUM 3.7 mmol/L (3.5-5.1); PROTEIN - SERUM 5.7 g/dL (6.4-8.2); SODIUM 143 mmol/L (136-145); UREA NITROGEN 9 mg/dL (7-18); eGFR NON AFRICAN AMERICAN > 90 mL/min (90-120)
[2019-07-08 07:24] LABS: BASOPHILS 0.4 % (0-2); EOSINOPHILS 3.8 % (0-7); HEMATOCRIT 29.8 % (36.0-48.0); HEMOGLOBIN 9.6 g/dL (12-16); IMMATURE GRANULOCYTES 0.6 % (0-5); LYMPHOCYTES 23.1 % (15-50); MCH 31.2 pg (26.0-34.0); MCHC 32.2 g/dL (31.0-37.0); MCV 96.8 fL (80.0-100.0); MEAN PLATELET VOLUME 10.4 fL (7.4-10.4); MONOCYTES 8.7 % (2-11); NEUTROPHILS 63.4 % (40-80); RBC 3.08 10x6/uL (4.00-5.40); RDW 15.4 % (11.5-14.5); WBC 5.3 10x3/uL (4.8-10.8)
[2019-07-08 07:30] LABS: PLATELET COUNT 100 10x3/uL (130-400)
--- NOTE | 2019-07-08 07:30 | NUR ---
ALERT AND ORIENTED. LUNGS CLEAR BILATERALLY IN ALL HANNA. HEART SOUNDS S1 AND S2 HEARD IN ALL HANNA. BOWEL SOUNDS ACTIVE X 4. SKIN INTACT WITHOUT REDNESS. RIGHT CHEST PORT PATENT WITHOUT REDNESS. WOUND VAC INTACT. DENIES NEEDS. BED LOW. FALL PRECAUTIONS IN PLACE. CALL LOUIS AND PERSONAL ITEMS IN REACH. WILL CONTINUE TO MONITOR.
[2019-07-08 08:56] VITALS: BP 150/89
[2019-07-08 09:19] LABS: INR 4.18 (0.85-1.17); PROTIME 39.5 SECONDS (11.6-15.0)
[2019-07-08 10:40] LABS: APPEARANCE CLEAR (CLEAR); BILIRUBIN NEGATIVE (NEGATIVE); COLOR STRAW (YELLOW); GLUCOSE NEGATIVE (NEGATIVE); KETONE NEGATIVE (NEGATIVE); NITRITE NEGATIVE (NEGATIVE); PROTEIN NEGATIVE (NEGATIVE); UROBILINOGEN NORMAL (NORMAL)
[2019-07-08 10:41] LABS: BACTERIA FEW /hpf (NEGATIVE); EPITHELIAL CELLS RARE /hpf (0-5); RED CELLS - URINE 0-5 /hpf (0-5); WHITE CELLS - URINE RARE /hpf (NEGATIVE)
[2019-07-08 11:02] LABS: PLATELET ESTIMATE DECREASED
[2019-07-08 11:03] LABS: ANISOCYTOSIS OCC
--- NOTE | 2019-07-08 11:24 | NUR ---
PATIENT SLEEPING. WILL CONTINUE TO MONITOR.
[2019-07-08 11:54] VITALS: BP 148/78
--- NOTE | 2019-07-08 14:33 | NUR ---
RESTING IN BED. DENIES NEEDS. WILL CONTINUE TO MONITOR.
--- NOTE | 2019-07-08 15:14 | NUR ---
PATIENT WOUND VAC CHANGED OUT TO HOME WOUND VAC. HOSPITAL WOUND VAC RETURNED TO SOILED UTILITY ROOM. PORT DEACCESSED WITH SALINE FLUSHES X 3. STATES DEATHLY ALLERGIC TO HEPARIN. STATES WANTS TO WAIT UNTIL DAUGHTER ARRIVES TO SIGN PAPERWORK. DAUGHTER MECCA CALLED AND STATES SELF OR SISTER WILL BE TO CASH SALES AUDIT CLERK PATIENT. PATIENT DENIES NEEDS AT THIS TIME. WILL CONTINUE TO MONITOR.
--- NOTE | 2019-07-08 15:20 | MORECARE ---
CASE MANAGEMENT DISCHARGE SUMMARY PATIENT: JEANETH JUDGE UNIT: [id number] ADM DATE: 06/25/19 AGE: 69 : 48 SEX: F ROOM/BED: D.2213 AUTHOR: ALANNA,DOC PHYSICIAN: REFERRING PHYSICIAN: MEHRDAD CHATTERJEE MD DATE OF SERVICE: 07/08/19 Discharge Plan Patient Name: JEANETH JUDGE Facility: [facility]:[place] : 1950 Planned Disposition: Anticipated Discharge Date: Discharge Date: Expected LOS: Initial Reviewer: [email or web address] Initial Review Date: 06/29/2019 Generated: 07/08/19 4:20 pm Comments DCP- Discharge Planning Updated by [id number]: Lea Youngblood on 07/06/19 11:[address] inpatient rehab has been denied, wound vac from [facility] at bedside, imm served and explained. Patient to dc home with home health today DCP- Discharge Planning Updated by [email or web address]: Kathie Luevano on 07/01/19 1:[address] Patient Name: JEANETH JUDGE Admission Status: Elective Accout number: [id number] Admission Date: 06-25-2019 : 1950 Admission Diagnosis:GASTROSTOMY MALFUNCTION Attending: MEHRDAD CHATTERJEE Current LOS: 6 Anticipated DC Date: Planned Disposition: Primary Insurance: HU[employer]NA CHOICE PPO MCR ADVANT Discharge Planning Comments: CM SPOKE WITH PATIENT AND HER DAUGHTER MECCA ABOUT DC PLANNING. THEY STATE THEY WOULD LIKE [facility] IF INSURANCE WILL APPROVE. IF INSURANCE WILL NOT APPROVE THEN RESUME HH WITH [facility]. Technology Manager: Kathie Luevano DCP- Discharge Planning Updated by [email or web address]: Kathie Luevano on 06/29/19 11:[address] Patient Name: JEANETH JUDGE Admission Status: Elective Accout number: [id number] Admission Date: 06-25-2019 : 1950 Admission Diagnosis: Attending: MEHRDAD CHATTERJEE Current LOS: 4 Anticipated DC Date: Planned Disposition: Primary Insurance: HUMANA CHOICE PPO MCR ADVANT Discharge Planning Comments: CM met with patient at bedside after explaining CM role and obtaining verbal consent. STATES HAD SURGERY YESTERDAY. STATES PLANS TO DC TO HOME AND RESUME HH. DOESN'T REMEMBER NAME OF HH BUT STATES DR. DONNELLY OFFICE SET IT UP. CM TO FOLLOW AND ASSIST. Technology Manager: Kathie Luevano DCPIA - Discharge Planning Initial Assessment Updated by [email or web address]: Kathie Luevano on 06/29/19 11:59 am * Is the patient Alert and Oriented? Yes * PCP [facility] * Pharmacy [facility] * Preadmission Environment Home with Family * ADLs Independent * Community resources currently utilized Home Health * Please name any agencies selected above. DOESN'T REMEMBER THE NAME * Additional services required to return to the preadmission environment? No * Can the patient safely return to the preadmission environment? Yes * Has this patient been hospitalized within the prior 30 days at any hospital? No External Providers External Provider: [facility] Next Contact Date: Service Request Date: Service Type: Resolution: Reviewer: Comments: Coverage Notice Reviewer: [id number] Rex Youngblood Notice Issued Date-Time: 07/06/2019 11:55 Notice Type: IM Discharge Notice Notice Delivered To: Patient Relationship to Patient: Tapper Balance Wheel Screw Hole Name: Delivery Method: HAND - Hand Delivered Hayley Days: Prior Verbal Notification: Recipient Understood Notice: Yes Recipient Signature: Yes Med Rec Note Co-signed by Attending: Coverage Notice Comment: Last DP export: 07/06/19 3:54 p Patient Name: JEANETH JUDGE Page [phone] at 1520 All edits/amendments must be made on the electronic document DICTATION DATE: 07/08/19 1520 FACING END TRIMMER: MAGI 07/08/19 1520 RPT#: [id number] DC DATE: STATUS: ADM IN [facility] [address] [place] [address] END OF REPORT
--- NOTE | 2019-07-08 15:30 | MORECARE ---
CASE MANAGEMENT DISCHARGE SUMMARY PATIENT: JEANETH JUDGE UNIT: [id number] ADM DATE: 06/25/19 AGE: 69 : 48 SEX: F ROOM/BED: D.2213 AUTHOR: ALANNA,DOC PHYSICIAN: REFERRING PHYSICIAN: MEHRADD CHATTERJEE MD DATE OF SERVICE: 07/08/19 Discharge Plan Patient Name: JEANETH JUDGE Facility: [facility]:[place] : 1950 Planned Disposition: Anticipated Discharge Date: Discharge Date: Expected LOS: Initial Reviewer: [email or web address] Initial Review Date: 06/29/2019 Generated: 07/08/19 4:30 pm Comments DCP- Discharge Planning Updated by [email or web address]: Lea Youngblood on 07/08/19 2:[address] P2P WAS UNSUCCESSFUL, PATIENT WILL BE DISCHARGED TODAY WITH HOME HEALTH RESUMPTION. I CALLED AND SPOKE WITH FIORDALIZA ARAGON TO LET HER KNOW. WOUND VAC IS IN ROOM. CM TO FOLLOW NEEDED DCP- Discharge Planning Updated by [id number]: Lea Youngblood on 07/06/19 11:[address] inpatient rehab has been denied, wound vac from [facility] at bedside, imm served and explained. Patient to dc home with home health today DCP- Discharge Planning Updated by [id number]: Kathie Luevano on 07/01/19 1:[address] Patient Name: JEANETH JUDGE Admission Status: Elective Accout number: [id number] Admission Date: 06-25-2019 : 1950 Admission Diagnosis:GASTROSTOMY MALFUNCTION Attending: MEHRDAD CHATTERJEE Current LOS: 6 Anticipated DC Date: Planned Disposition: Primary Insurance: HU[employer]NA CHOICE PPO MCR ADVANT Discharge Planning Comments: CM SPOKE WITH PATIENT AND HER DAUGHTER MECCA ABOUT DC PLANNING. THEY STATE THEY WOULD LIKE ON LICENSE OF [facility] IF INSURANCE WILL APPROVE. IF INSURANCE WILL NOT APPROVE THEN RESUME HH WITH [facility]. Television Newscast Director: Kathie Luevano DCP- Discharge Planning Updated by [email or web address]: Kathie Luevano on 06/29/19 11:[address] Patient Name: JEANETH JUDGE Admission Status: Elective Accout number: [id number] Admission Date: 06-25-2019 : 1950 Admission Diagnosis: Attending: MEHRDAD CHATTERJEE Current LOS: 4 Anticipated DC Date: Planned Disposition: Primary Insurance: HUMANA CHOICE PPO MCR ADVANT Discharge Planning Comments: CM met with patient at bedside after explaining CM role and obtaining verbal consent. STATES HAD SURGERY YESTERDAY. STATES PLANS TO DC TO HOME AND RESUME HH. DOESN'T REMEMBER NAME OF HH BUT STATES DR. DONNELLY OFFICE SET IT UP. CM TO FOLLOW AND ASSIST. Television Newscast Director: Kathie Luevano DCPIA - Discharge Planning Initial Assessment Updated by [email or web address]: Kathie Luevano on 06/29/19 11:59 am * Is the patient Alert and Oriented? Yes * PCP [facility] * Pharmacy [facility] * Preadmission Environment Home with Family * ADLs Independent * Community resources currently utilized Home Health * Please name any agencies selected above. DOESN'T REMEMBER THE NAME * Additional services required to return to the preadmission environment? No * Can the patient safely return to the preadmission environment? Yes * Has this patient been hospitalized within the prior 30 days at any hospital? No Coverage Notice Reviewer: [id number] Rex Youngblood Notice Issued Date-Time: 07/06/2019 11:55 Notice Type: IM Discharge Notice Notice Delivered To: Patient Relationship to Patient: Manager Enterprise Name: Delivery Method: HAND - Hand Delivered Hayley Days: Prior Verbal Notification: Recipient Understood Notice: Yes Recipient Signature: Yes Med Rec Note Co-signed by Attending: Coverage Notice Comment: Last DP export: 07/08/19 2:20 p Patient Name: JEANETH JUDGE Page [id number] at 1530 All edits/amendments must be made on the electronic document DICTATION DATE: 07/08/19 1530 DIETARY SERVICES MANAGER: MAGI 07/08/19 1530 RPT#: [id number] DC DATE: STATUS: ADM IN [facility] [address] [place] [address] END OF REPORT
--- NOTE | 2019-07-08 16:53 | NUR ---
OT NOTE: PT COMPLETED STANDING BALANCE AXS WITH SBA. PT COMPLETED ADL MOB WITH SBA. PT COMPLETED GROOMING TASKS WITH SET UP. THANK YOU, VEDA HURD
[2019-07-08 17:28] VITALS: BP 126/53
--- NOTE | 2019-07-08 17:40 | NUR ---
DISCHARGE EDUCATION PROVIDED BOTH WRITTEN AND VERBAL TO PATIENT AND DAUGHTER AT BEDSIDE. BOTH VERBALIZED UNDESTANDING. RX FOR NORCO OBTAINED PER DR SALCEDO PER DAUGHTER'S REQUEST. DENIES FURTHER NEEDS. DENIES FURTHER QUESTIONS. WOUND VAC SUPPLIES SENT WITH PATIENT FOR HOME HEALTH. PATIENT DISCHARGED HOME WITH DAUGHTER WITH ALL BELONGINGS.
--- NOTE | 2019-07-09 13:53 | MORECARE ---
CASE MANAGEMENT DISCHARGE SUMMARY PATIENT: JEANETH JUDGE UNIT: [id number] ADM DATE: 06/25/19 AGE: 69 : [birth year] SEX: F ROOM/BED: D.2213 AUTHOR: ALANNADOC PHYSICIAN: REFERRING PHYSICIAN: MEHRDAD CHATTERJEE MD DATE OF SERVICE: 07/09/19 Discharge Plan Patient Name: JEANETH JUDGE Facility: [facility]:[place] : 1950 Planned Disposition: Home Health Service Anticipated Discharge Date: Discharge Date: 07/08/2019 Expected LOS: 0 Initial Reviewer: [email or web address] Initial Review Date: 06/29/2019 Generated: 07/09/19 2:52 pm Comments DCP- Discharge Planning Updated by [email or web address]: Lea Youngblood on 07/08/19 2:[address] P2P WAS UNSUCCESSFUL, PATIENT WILL BE DISCHARGED TODAY WITH HOME HEALTH RESUMPTION. I CALLED AND SPOKE WITH FIORDALIZA ARAGON TO LET HER KNOW. WOUND VAC IS IN ROOM. CM TO FOLLOW NEEDED DCP- Discharge Planning Updated by [email or web address]: Lea Youngblood on 07/06/19 11:[address] inpatient rehab has been denied, wound vac from [facility] at bedside, imm served and explained. Patient to dc home with home health today DCP- Discharge Planning Updated by [email or web address]: Kathie Luevano on 07/01/19 1:[address] Patient Name: JEANETH JUDGE Admission Status: Elective Accout number: [id number] Admission Date: 06-25-2019 : 1950 Admission Diagnosis:GASTROSTOMY MALFUNCTION Attending: MEHRDAD CHATTERJEE Current LOS: 6 Anticipated DC Date: Planned Disposition: Primary Insurance: [employer] CHOICE PPO MCR ADVANT Discharge Planning Comments: CM SPOKE WITH PATIENT AND HER DAUGHTER MECCA ABOUT DC PLANNING. THEY STATE THEY WOULD LIKE [facility] IF INSURANCE WILL APPROVE. IF INSURANCE WILL NOT APPROVE THEN RESUME HH WITH [facility]. Healthcare Facility Administrator: Kathie Luevano DCP- Discharge Planning Updated by [email or web address]: Kathie Luevano on 06/29/19 11:[address] Patient Name: JEANETH JUDGE Admission Status: Elective Accout number: [id number] Admission Date: 06-25-2019 : 1950 Admission Diagnosis: Attending: MEHRDAD CHATTERJEE Current LOS: 4 Anticipated DC Date: Planned Disposition: Primary Insurance: [employer] CHOICE PPO MCR ADVANT Discharge Planning Comments: CM met with patient at bedside after explaining CM role and obtaining verbal consent. STATES HAD SURGERY YESTERDAY. STATES PLANS TO DC TO HOME AND RESUME HH. DOESN'T REMEMBER NAME OF HH BUT STATES DR. DONNELLY OFFICE SET IT UP. CM TO FOLLOW AND ASSIST. Healthcare Facility Administrator: Kathie Luevano DCPIA - Discharge Planning Initial Assessment Updated by [email or web address]: Kathie Luevano on 06/29/19 11:59 am * Is the patient Alert and Oriented? Yes * PCP [facility] * Pharmacy [facility] * Preadmission Environment Home with Family * ADLs Independent * Community resources currently utilized Home Health * Please name any agencies selected above. DOESN'T REMEMBER THE NAME * Additional services required to return to the preadmission environment? No * Can the patient safely return to the preadmission environment? Yes * Has this patient been hospitalized within the prior 30 days at any hospital? No Coverage Notice Reviewer: [id number] Rex Youngblood Notice Issued Date-Time: 07/06/2019 11:55 Notice Type: IM Discharge Notice Notice Delivered To: Patient Relationship to Patient: Traffic Workforce Representative Name: Delivery Method: HAND - Hand Delivered Hayley Days: Prior Verbal Notification: Recipient Understood Notice: Yes Recipient Signature: Yes Med Rec Note Co-signed by Attending: Coverage Notice Comment: Last DP export: 07/08/19 2:30 p Patient Name: JEANETH JUDGE Page [phone] at 1353 All edits/amendments must be made on the electronic document DICTATION DATE: 07/09/19 1352 MACHINE BOSS: MAGI 07/09/19 1352 RPT#: [id number] DC DATE:07/08/19 STATUS: DIS IN [facility] [address] [place] [address] END OF REPORT
[2019-07-09 17:08] LABS: AEROBE ID Final report (())
--- NOTE | 2019-07-15 09:56 | OP ---
PATIENT NAME: JEANETH JUDGE MEDICAL RECORD: [id number] :[birth year] LOCATION:D.MS Lambert2213 ADMISSION DATE:06/25/19 SURGEON: WANDER SALCEDO MD DATE OF OPERATION: 06/28/2019 PREOPERATIVE DIAGNOSIS: Cutaneous and subcutaneous abscess of the abdominal wall. POSTOPERATIVE DIAGNOSES: Cutaneous and subcutaneous abscess of the abdominal wall. Please see dimensions below. PROCEDURE: Excisional debridement of the abdominal wall with marsupialization and packing. The tissues debrided were skin and subcutaneous tissue as well as abscess cavity. The abscess tract laterally. It was located mainly in the right upper quadrant. It was due to tube feedings being injected out into the subcutaneous tissues, causing an abscess. The dimensions of the debridement, including margins, measured 3.0 x 3.2 cm. It was a sharp debridement. The depth was 4.5 cm. The risks, possible complications, and alternatives to the procedure were explained to the patient. She elects to proceed. OPERATIVE COURSE: The patient was conveyed the operating room on 06/28/2019. General anesthesia was induced by the anesthesia staff. The abdomen was sterilely prepped and draped. A roughly circular incision was accomplished with a scalpel. Sharp dissection was carried down into the abscess cavity. Cultures were obtained. Purulence was identified. I excised a plug of subcutaneous tissue down into this abscess cavity, removing the top portion of the abscess cavity. Blunt dissection was then carried out. I then curetted out the abscess cavity. Meticulous hemostasis was achieved with electrocautery. I irrigated with hydrogen peroxide. I marsupialized the wound with a running locking 3-0 Vicryl Rapide suture. I then packed the wound with Kerlix that have been soaked with a dilute Dakin solution. A sterile dressing was applied. The patient was then extubated and conveyed to post-anesthesia care unit where she was in stable condition. She will need to remain in the hospital for several days on intravenous antibiotics. TRANSINT:[id number] Voice Confirmation ID: [id number] DOCUMENT ID: [id number] WANDER SALCEDO MD at 0956 CC: [id number] DICTATION DATE: 07/14/19 1904 CARDROOM PLASTIC CARD GRADER: 07/15/19 0249 DIS IN 07/08/19 [id number] [place] [address]
== END 2019-07-08 17:41 | disposition home health service (06) | DRG 356 ==
LOC: D.SDCHOLD 12:27 → D.MS 12:27
PROVIDERS: Emergency Medicine; Surgery; ADMIT Internal Medicine Nephrology; ATTEND Internal Medicine Nephrology
PROC: 0JB80ZZ Excision of Abdomen Subcutaneous Tissue and Fascia, Open Approach (ICD-10-PCS; principal; 2019-06-28 09:00)
DX: K94.22 Gastrostomy infection (principal); E43 Unspecified severe protein-calorie malnutrition; K65.9 Peritonitis, unspecified; L03.311 Cellulitis of abdominal wall; E87.1 Hypo-osmolality and hyponatremia; K94.23 Gastrostomy malfunction; E13.43 Other specified diabetes mellitus with diabetic autonomic (poly)neuropathy; K31.84 Gastroparesis; N20.0 Calculus of kidney; Z85.038 Personal history of other malignant neoplasm of large intestine; Z86.711 Personal history of pulmonary embolism; Z79.01 Long term (current) use of anticoagulants

== ENCOUNTER → 2019-07-10 14:46 | Outpatient (CLI) | payer MEDICARE ==
[2019-06-26 14:26] VITALS: BMI 31.3
[~2019-07-10 14:46] MED LIST changes: +DIFLUCAN150 MG PO; +LEVOFLOXACIN500 MG PO
[2019-07-10 15:11] LABS: INR 2.52 (0.85-1.17); PROTIME 26.4 SECONDS (11.6-15.0)
== END | disposition home or self-care (01) ==
LOC: D.LABREF 14:46
PROVIDERS: ATTEND Emergency Medicine
DX: Z79.01 Long term (current) use of anticoagulants (principal)

== ENCOUNTER → 2019-09-01 14:08 | Outpatient (CLI) | payer MEDICARE ==
[2019-06-26 14:26] VITALS: BMI 31.3
[2019-09-01 15:28] LABS: INR 2.04 (0.85-1.17); PROTIME 22.4 SECONDS (11.6-15.0)
== END | disposition home or self-care (01) ==
LOC: D.LABREF 14:08
PROVIDERS: ATTEND Emergency Medicine
DX: Z79.01 Long term (current) use of anticoagulants (principal)

== ENCOUNTER → 2019-09-08 14:00 | Outpatient (CLI) | payer MEDICARE ==
[2019-06-26 14:26] VITALS: BMI 31.3
[2019-09-08 14:21] LABS: INR 2.39 (0.85-1.17); PROTIME 25.3 SECONDS (11.6-15.0)
== END | disposition home or self-care (01) ==
LOC: D.LABREF 14:00
PROVIDERS: ATTEND Emergency Medicine
DX: Z79.01 Long term (current) use of anticoagulants (principal); I48.91 Unspecified atrial fibrillation

== ENCOUNTER → 2019-09-14 11:23 | Outpatient (CLI) | payer MEDICARE ==
[2019-06-26 14:26] VITALS: BMI 31.3
[2019-09-14 11:59] LABS: INR 2.7 (0.85-1.17); PROTIME 27.9 SECONDS (11.6-15.0)
== END | disposition home or self-care (01) ==
LOC: D.LABREF 11:23
PROVIDERS: ATTEND Emergency Medicine
DX: I48.91 Unspecified atrial fibrillation (principal)

== ENCOUNTER → 2019-09-29 15:38 | Outpatient (CLI) | payer MEDICARE ==
[2019-06-26 14:26] VITALS: BMI 31.3
[2019-09-29 16:07] LABS: INR 2.71 (0.85-1.17)
== END | disposition home or self-care (01) ==
LOC: D.LABREF 15:38
PROVIDERS: ATTEND Emergency Medicine
DX: Z79.01 Long term (current) use of anticoagulants (principal); I48.91 Unspecified atrial fibrillation

== ENCOUNTER → 2019-10-20 12:48 | Outpatient (CLI) | payer MEDICARE ==
[2019-06-26 14:26] VITALS: BMI 31.3
[2019-10-20 14:19] LABS: INR 2.65 (0.85-1.17); PROTIME 27.9 SECONDS (11.6-15.0)
== END | disposition home or self-care (01) ==
LOC: D.LABREF 12:48
PROVIDERS: ATTEND Emergency Medicine
DX: Z79.01 Long term (current) use of anticoagulants (principal)

== ENCOUNTER → 2019-11-11 23:26 | Outpatient (CLI) | payer MEDICARE ==
[2019-06-26 14:26] VITALS: BMI 31.3
== END | disposition home or self-care (01) ==
LOC: D.LABREF 23:26
PROVIDERS: ATTEND Urology
DX: R31.9 Hematuria, unspecified (principal); R82.90 Unspecified abnormal findings in urine

== ENCOUNTER → 2019-12-07 08:00 | Outpatient (CLI) | payer MEDICARE ==
[~2019-12-07 08:00] MED LIST changes: +BENTYL10 MG PO; +GAVILAX510 GM PO; +NORCO-7.51 TAB PO; +REMERON15 MG PO; +ULTRAM50 MG PO
[2019-12-07 08:22] LABS: BASOPHILS 0.2 % (0-2); EOSINOPHILS 1.9 % (0-7); HEMATOCRIT 42.1 % (36.0-48.0); HEMOGLOBIN 13.5 g/dL (12-16); IMMATURE GRANULOCYTES 0.2 % (0-5); LYMPHOCYTES 26.5 % (15-50); MCH 31.1 pg (26.0-34.0); MCHC 32.1 g/dL (31.0-37.0); MEAN PLATELET VOLUME 9.9 fL (7.4-10.4); MONOCYTES 9.8 % (2-11); NEUTROPHILS 61.4 % (40-80); PLATELET COUNT 146 10x3/uL (130-400); RBC 4.34 10x6/uL (4.00-5.40); RDW 14.1 % (11.5-14.5); WBC 5.3 10x3/uL (4.8-10.8)
[2019-12-07 08:27] LABS: ANION GAP 11.5 mmol/L (8-16); CALCIUM 8.8 mg/dL (8.5-10.1); CARBON DIOXIDE 27.6 mmol/L (21.0-32.0); CREATININE - SERUM 1.2 mg/dL (0.6-1.3); POTASSIUM - SERUM 4.1 mmol/L (3.5-5.1)
[2019-12-07 08:29] LABS: INR 1.71 (0.85-1.17); PROTIME 19.9 SECONDS (11.6-15.0)
--- NOTE | 2019-12-07 11:10 | NUR ---
1105-PT INR RESULTS CALLED TO DR DONNELLY, DR ELIZONDO AND INTERVENTIONAL RADIOLOGY.
[2019-12-15 15:03] LABS: BASOPHILS 0.2 % (0-2); EOSINOPHILS 1.9 % (0-7); HEMATOCRIT 40.4 % (36.0-48.0); IMMATURE GRANULOCYTES 0.2 % (0-5); LYMPHOCYTES 22.3 % (15-50); MCH 31.6 pg (26.0-34.0); MCHC 32.2 g/dL (31.0-37.0); MCV 98.3 fL (80.0-100.0); MEAN PLATELET VOLUME 10.1 fL (7.4-10.4); MONOCYTES 8.3 % (2-11); NEUTROPHILS 67.1 % (40-80); PLATELET COUNT 144 10x3/uL (130-400); RBC 4.11 10x6/uL (4.00-5.40); WBC 5.4 10x3/uL (4.8-10.8)
[2019-12-15 15:18] LABS: APTT 25.9 SECONDS (22.8-39.4); INR 1.04 (0.85-1.17); PROTIME 13.5 SECONDS (11.6-15.0)
[2019-12-15 15:24] LABS: ANION GAP 10.7 mmol/L (8-16); CALCIUM 8.6 mg/dL (8.5-10.1); CARBON DIOXIDE 28.1 mmol/L (21.0-32.0); CREATININE - SERUM 1.1 mg/dL (0.6-1.3); POTASSIUM - SERUM 4.8 mmol/L (3.5-5.1)
[2019-12-18 13:56] VITALS: BMI 29.3
== END | disposition home or self-care (01) ==
LOC: D.OPS 08:00 → D.PAN 12-08 07:30 → EDSTATUS 12-08 07:30 → D.OPS 12-08 07:30
PROVIDERS: ATTEND Urology
DX: N30.80 Other cystitis without hematuria (principal); N20.0 Calculus of kidney; I48.91 Unspecified atrial fibrillation; K21.9 Gastro-esophageal reflux disease without esophagitis; E11.40 Type 2 diabetes mellitus with diabetic neuropathy, unspecified

== ENCOUNTER 2019-12-17 07:10 | Inpatient (IN) | payer MEDICARE ==
[~2019-12-17] VITALS: Ht 154.9 cm; Wt 70.3 kg
--- NOTE | ~2019-12-17 | HEMODYNAMI ---
PATIENT:JEANETH JUDGE MEDICAL RECORD: [id number] : 46 LOCATION:KEVIN ADMISSION DATE: 12/17/19 Generatedon:12/17/20199:21 Patient name: JEANETH JUDGE Patient #: [id number] SSN : : 1950 Date of study: 12/17/2019 Page: Of Hemodynamic Procedure Report Patient Data Patient Demographics Procedure consent was obtained First Name: JEANETH Gender: Female Last Name: NU : 1950 Patient #: [id number] Age: 69 year(s) Race: Unknown Additional ID: [id number] Contact details [address]: [address] [place] [address] State: [place] City: [place] Zip code: [address] Past Medical History Allergies Allergen Reaction Date Comments Reported Codeine 12/17/2019 Heparin agents 12/17/2019 Other allergy 12/17/2019 lovenox, ibuprofen Admission Admission Data Admission Date: 12/17/2019 Admission Time: 7:30 Height (in.): 61 BSA: 1.71 (m2) Height (cm.): 154.94 BMI: 29.85 (kg/m2) Weight (lbs.): 158 Weight (kg.): 71.67 Procedure Procedure Types Cath Procedure Peripheral Cath Diagnostic Procedure Cook [place] Peripheral Procedures Nephro Perc Neph Uret Cath Procedure Description Procedure Date Procedure Date: 12/17/2019 Procedure Start Time: 9:00 Procedure Staff Name Function Thomas Lanza MD Performing Physician Rocio Dunaway RT Manager Leadership Development Prachi Sheth RN Nurse Ping Ortega RN Nurse Silverio Medrano RT Scrub Procedure Data Cath Procedure Fluoroscopy Diagnostic fluoroscopy Total fluoroscopy Time: 6.3 time: 6.3 min min Diagnostic fluoroscopy Total fluoroscopy dose: 149 dose: 149 mGy mGy Contrast Material Contrast Material Type Amount (ml) Isovue 300 15 Procedure Medications Medication Administration Route Dosage Heparin Flush Bag added to field 3 bags (1000units/500ml NS) Lidocaine 1% added to field 20 Versed I.V. 1 mg Fentanyl I.V. 50 mcg Versed I.V. 1 mg Fentanyl I.V. 50 mcg unlisted medication I.V.P.B 1 Hemodynamics Rest BSA: 1.71 (m2) O2 Consumption: Estimated: 156.86 (ml/min) O2 Consumption indexed : Estimated:91.73 (ml/min/m) Heart Rate: 69 (bpm) Snapshots Pre Cath Intra NCS Post Cath Vital Signs Time Heart Resp SPO2 etCO2 NIBP (mmHg) Rhythm Pain Sedation Rate (ipm) (%) (mmHg) Status Level (bpm) 8:50:56 71 13 100 13.5 154/77(118) NSR 0 (11) 10(A) , No pain 8:55:21 70 19 100 33.9 151/72(111) NSR 0 (11) 10(A) , No pain 8:59:41 67 34 100 20.3 128/62(100) NSR 0 (11) 8(A) , No pain 9:03:57 67 10 100 28.6 132/70(101) NSR 0 (11) 8(A) , No pain 9:08:15 67 10 100 29.4 129/66(105) NSR 0 (11) 8(A) , No pain 9:12:31 70 8 100 27.9 131/70(98) NSR 0 (11) 8(A) , No pain 9:16:45 78 11 100 29.4 146/78(112) NSR 0 (11) 8(A) , No pain 9:21:03 76 11 99 27.9 147/78(115) NSR 0 (11) 8(A) , No pain Medications Time Medication Route Dose Verified Delivered Reason Notes Effe ctiveness by by 8:58:10 Heparin Flush added 3 Thomas Guzman used for Bag to bags Myla Lanza procedure (1000units/500ml field MD GAFFNEY NS) 8:58:44 Lidocaine 1% added 20ml Thomas Guzman for local to vial Myla Lanza anesthetic field MD GAFFNEY 8:58:56 Versed I.V. 1 mg Thomas Velarde for Myla Sheth RN sedation 8:59:08 Fentanyl I.V. 50 Thomas Velarde for mcg Myla Sheth RN sedation 9:03:44 Versed I.V. 1 mg Thomas Velarde for Myla Sheth RN sedation 9:03:52 Fentanyl I.V. 50 Thomas Velarde for [facility] Myla Sheth RN sedation 9:09:42 cefepime I.V.P.B 1gm Thomas Velarde Per Myla Sheth RN physician MD Procedure Log Time Note 8:32:07 Patient Height : 61 inches 8:32:17 Patient Weight : 158 lbs 8:32:50 Time tracking: Regular hours (M-F 7:00 - 5:00) 8:33:15 Use device set IR Diagnostic 8:33:38 GLIDE CATHETER 5FR ANGLED 65cm (CG507) opened to sterile field. 8:33:39 Tegaderm 4 x 4 (1626W) opened to sterile field. 8:33:40 Sterile Angiographic Pack opened to sterile field. 8:33:41 Bag Decanter (2002S) opened to sterile field. 8:33:52 KIT, INTRODUCER ACCUSTICK II W/C ([id number]) opened to sterile field. 8:35:04 Plan of Care:Hemodynamics will remain stable., Cardiac rhythm will remain stable., Comfort level will be maintained., Respiratory function will remain adequate., Patient/ family verbilizes understanding of procedure., Procedure tolerated without complication., Recovers from procedure without complications.. 8:35:11 Patient received from Outpatients to IR Alert and oriented. Tansferred to table in Prone position. 8:35:16 Signed procedure consent form obtained from patient. 8:35:21 H&P Date Dictated: 12/17/2019 Within 30 days and on chart., H&P Addendum completed by physician on day of procedure. (MUST COMPLETE FOR ALL OUTPATIENTS). 8:35:25 Pre-procedure instructions explained to patient. 8:35:25 Pre-op teaching completed and patient verbalized understanding. 8:35:27 Family in waiting room. 8:35:29 Patient NPO since Midnight. 8:35:44 Patient allergic to Codeine 8:35:58 Patient allergic to Heparin agents 8:36:31 Patient allergic to Other allergylovenox, ibuprofen 8:36:37 Is the patient allergic to Iodine/contrast media? No. 8:36:40 Is patient on blood thinner?Yes, last dose on 12-05-2019 8:37:06 Patient diabetic? Yes. 8:37:08 If diabetic: On Metformin? No 8:37:10 8:37:12 ----Pre-sedation anethsthesia assessment.---- 8:37:14 Previous problem with sedation/anesthesia? No ? 8:37:17 Snore? Yes 8:37:19 Sleep apnea? Yes 8:37:21 Deviated septum? No 8:37:23 Opens mouth fully? Yes 8:37:24 Sticks out tongue? Yes 8:37:28 Airway obstruction? No ? 8:37:34 Dentures? Yes not in 8:37:51 Left Renal was prepped with chlora-prep and draped in sterile fashion. 8:37:54 8:38:20 3a) 45-59 Moderately reduced kidney function. 8:38:41 Maximum allowable contrast dose (3.7 X eGFR X 0.75)144 ml. 8:39:13 8:48:22 ECG and BP/O2 sat monitors applied to patient. 8:49:44 Vital chart was started 8:49:46 Baseline sample Acquired. 8:49:48 Full Disclosure recording started 8:49:49 8:57:53 CHIBA 20 X 15 needle opened to sterile field. 8:58:10 Heparin Flush Bag (1000units/500ml NS) 3 bags added to field was administered by Thomas Lanza MD; used for procedure; Verbal order read back and verified. 8:58:44 Lidocaine 1% 20ml vial added to field was administered by Thomas Lanza MD; for local anesthetic; Verbal order read back and verified. 8:58:56 Versed 1 mg I.V. was administered by Prachi Sheth RN; for sedation; Verbal order read back and verified. 8:59:08 Fentanyl 50 mcg I.V. was administered by Prachi Sheth RN; for sedation; Verbal order read back and verified. 8:59:21 8:59:24 Physician arrived 8:59:25 --------ALL STOP TIME OUT------ 8:59:26 Final Timeout: patient, procedure, and site verified with staff and physician. All members of the team are in agreement. 8:59:46 Fire Safety Assessment: A--An alcohol-based skin anteseptic being used preoperatively., C--Open oxygen or nitrous oxide is being used. 9:00:03 Procedure started. 9:00:10 Local anesthetic to Left Renal area with Lidocaine 1% by Thomas Lanza MD.INITIAL ACCESS ONLY 9:03:44 Versed 1 mg I.V. was administered by Prachi Sheth RN; for sedation; Verbal order read back and verified. 9:03:52 Fentanyl 50 mcg I.V. was administered by Prachi Sheth RN; for sedation; Verbal order read back and verified. 9:07:07 NITINOL .018 80cm wire ([id number]) opened to sterile field. 9:09:42 cefepime 1gm I.V.P.B was administered by Prachi Sheth RN; Per physician; Verbal order read back and verified. 9:17:39 SUTURE SILK 2-0 BLK BR FS 18 I opened to sterile field. 9:18:44 Procedure ended.(Physican Out) 9:19:19 Fluoroscopy time 06.30 minutes. 9:19:24 Fluoroscopy dose: 149 mGy 9:19:24 Flurop Dose total: 149 9:19:30 Contrast amount:Isovue 300 15ml. 9:19:32 Procedure and supply charges have been captured, reviewed, submitted and are correct. 9:19:38 Report given to Outpatients. 9:21:57 Vital chart was stopped Device Usage Item Name Manufacture Quantity Catalog Hospital Part Current Minimal Lot# / Number Charge Number Stock Stock Serial# Code FLORIN Terumo 1 [id number] 5 CATHETER 5FR ANGLED 65cm (CG507) Tegaderm 4 x 3M 1 1626W 992471 [id number] [id number] 5 4 (1626W) Sterile Cardinal 1 [id number] 168417 560069 5 Angiographic Health Pack Bag Decanter Microtek 1 2001S 258752 51300 152404 5 (2001S) Medical Inc. KIT, Gary 1 [id number] 627978 195773 230341 5 INTRODUCER Scientific ACCUSTICK II W/C ([id number]) CHIBA 20 X Lockhart Medical 1 [id number] 318684 848809 5 [id number] 15 needle NITINOL .018 Medtronic 1 [id number] 652303 478522 5 80cm wire ([id number]) SUTURE SILK Ethicon 1 685H 116236 370049 5 2-0 BLK BR FS 18 I Signature Audit [place] Stage Time Signature Unsigned Intra-Procedure 12/17/2019 Rocio Dunaway 9:21:53 AM RT(R) [facility] [address] [place] [address]
[~2019-12-17 07:10] MED LIST changes: -BENTYL10 MG PO; -GAVILAX510 GM PO; -NORCO-7.51 TAB PO
[2019-12-17 07:34] VITALS: BP 111/75; BMI 29.9
[2019-12-17] MEDS ORDERED: BENTYL10 MG PO (07:34)
--- NOTE | 2019-12-17 14:27 | NUR ---
SCD'S NOT PLACED ON PATIENT DUE TO STATED HISTORY OF BLOOD CLOTS.
[2019-12-17 16:27] VITALS: BP 138/77
--- NOTE | 2019-12-17 16:30 | NUR ---
PATIENT IS HERE FROM OR. NEPHROSTOMY TUBE IN LEFT SIDE DRESSING CLEAN DRY INTACT. DRAINAGE BLOODY, APPROXIMATELY 15 ML. BAEZA PLACED WITH 500 ML RED URINE IN BAEZA CATHETER. SHE IS ALERT AND AWAKE AND DENIES ANY NEEDS AT THIS TIME. FAMILY AT BEDSIDE.
[2019-12-17 17:58] VITALS: BP 109/70; BMI 29.3
--- NOTE | 2019-12-17 19:28 | NUR ---
EVENING ROUNDS COMPLETED. PT AAOX3, AFVSS, NO S/S OF DISTRESS. ALTHOUGH PT C/O DIFFICULTY WITH BM POST PCNL. CALLED PAGED ON-CALLMIKHAIL. AWAITING A CALL BACK. NEPHROSTOMY TUBE DRAINING/BLOODY DRAINIAGE, BAEZA ALSO WITH BLOODY DRAINAGE. PT DENIES PAIN AT THIS TIME. WILL CPOC. CL WITHIN REACH, BED IN LOPW, FAMILY @BEDSIDE.
[2019-12-17] MEDS ORDERED: GAVILAX510 GM PO (19:44)
[2019-12-17 20:30] VITALS: BP 151/85
--- NOTE | 2019-12-17 21:29 | NUR ---
DR. MIKHAIL AG. GIVEN ALONGSIDE PM MEDS.
[2019-12-18 00:30] VITALS: BP 118/78
[2019-12-18 04:30] VITALS: BP 120/76
[2019-12-18 05:20] LABS: BASOPHILS 0.2 % (0-2); EOSINOPHILS 0.5 % (0-7); HEMATOCRIT 36.3 % (36.0-48.0); HEMOGLOBIN 11.4 g/dL (12-16); IMMATURE GRANULOCYTES 0.2 % (0-5); LYMPHOCYTES 14.8 % (15-50); MCH 31.3 pg (26.0-34.0); MCHC 31.4 g/dL (31.0-37.0); MCV 99.7 fL (80.0-100.0); MEAN PLATELET VOLUME 9.7 fL (7.4-10.4); MONOCYTES 12.9 % (2-11); NEUTROPHILS 71.4 % (40-80); PLATELET COUNT 116 10x3/uL (130-400); RBC 3.64 10x6/uL (4.00-5.40); WBC 6.6 10x3/uL (4.8-10.8)
[2019-12-18 05:48] LABS: ALBUMIN 2.8 g/dL (3.4-5.0); ANION GAP 11.3 mmol/L (8-16); BILIRUBIN - TOTAL 0.49 mg/dL (0.2-1.3); CARBON DIOXIDE 28.1 mmol/L (21.0-32.0); CREATININE - SERUM 1.1 mg/dL (0.6-1.3); POTASSIUM - SERUM 4.4 mmol/L (3.5-5.1); PROTEIN - SERUM 5.9 g/dL (6.4-8.2)
--- NOTE | 2019-12-18 08:45 | OP ---
PATIENT NAME: JEANETH JUDGE MEDICAL RECORD: [id number] :46 LOCATION:D.M2 D.2140 ADMISSION DATE: SURGEON: WANDER ELIZONDO MD DATE OF OPERATION: 12/17/2019 SURGEON: Wander Elizondo MD ANESTHESIA: General anesthesia by Nae Young CRNA. DIAGNOSIS: Left renal stones, 11 mm and 12 mm. PROCEDURE: Left percutaneous nephrolithotomy PCNL. FINDINGS: Radiodense renal stones. SPECIMENS: Renal stones times 2. ESTIMATED BLOOD LOSS: Minimal. CLINICAL HISTORY: This is a 69-year-old female, who has recurrent urinary tract infections. CT scan shows 2 large stones in the left kidney. There are no stones in the right kidney. 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 When I saw her, she had an issue with subcutaneous abscess around the PEG tube. This tube has been placed for gastroparesis. I am wondering whether her chronic nausea and vomiting is actually due to some degree of renal colic from the kidney stones. Her urine cultures are growing Escherichia coli and Klebsiella along with enterococcus. These are sensitive to amoxicillin and Cipro. Her last urine culture in 11/16/2019, grew Citrobacter, which is sensitive to Cipro and Levaquin. I have had her on Levaquin tablets in suppressive dose. I feel that the stones are probably infected and they are the source of her ongoing UTIs. She comes now to have a left PCNL to remove both stones. Earlier today, she went to the interventional radiology and she had a nephroureteral access performed. She is now transferred to the OR to have the stone removed. SHE IS ALLERGIC TO CODEINE, HEPARIN, IBUPROFEN, AND LOVENOX. She was given Levaquin IV sectional belt mold assembler to the OR. DESCRIPTION OF PROCEDURE: The patient was given induction of general anesthesia in supine position on her stretcher. She was then placed into frogleg position and the vaginal area was prepped and draped. A rigid cystoscope was used and the distal end of the nephroureteral tube was brought out through the urethra. This will allow us to clamp the access wire and to prevent loss of the access tract. A Croft catheter was placed into the bladder and put to bag drainage. She was then turned over into the prone position on the Rajesh frame. She was reprepped and redraped. An Amplatz Super Stiff wire was placed down through the lumen of the nephroureteral wire, the nephroureteral catheter, and the distal end of the wire then stuck out through the urethra. The circulating nurse then put a hemostat on it to prevent loss of the access tract. The nephroureteral catheter was then removed entirely. A 1-cm incision was made on either side of the wire. A dual-lumen catheter was then inserted into the proximal ureter. Through the second lumen of the catheter, a Sensor wire was placed down into the bladder. Once the wires were in place and the dual lumen catheter was removed entirely. The second wire was clamped to the drapes as a safety wire. We worked over the Amplatz Super Stiff wire. The NephroMax balloon dilator was then inserted with the tip on fluoroscopy placed right up against the larger OPERATIVE REPORT [id number] JEANETH JUDGE stone, which is more lateral of the stones. The tract was dilated to 16 atmospheres of pressure and the working sheath was slid down over the inflated balloon. Once the sheath was in position, the balloon was deflated and removed. The nephroscope was introduced. We immediately encountered the stones. A 3-Zimbabwean 0-tip basket was placed around the more medial stone and the stone was removed through the sheath. We then came back with the scope and again used a 3-Zimbabwean 0-tip basket to encompass the larger 12-mm stone, which was more lateral. The stone would not fit through the sheath. With the stone trapped against the sheath opening, we removed the entire sheath and scope together. This resulted in removal of the stone entirely. We used the balloon dilator to get our sheath back into the kidney. Looking with the nephroscope, there was no further visible stone evident. On fluoroscopy, there was no further stone visible. Over the Super Stiff wire, we inserted a 24-Zimbabwean Malecot nephrostomy tube. Once the tube was in correct position within the renal pelvis, the working sheath and the 2 wires were removed entirely. The nephrostomy tube was sutured to the skin using 2-0 nylon. Dressings were applied and the nephrostomy tube was placed to bag drainage. The patient was then awakened and brought to the recovery room. TRANSINT:[id number] Voice Confirmation ID: [id number] DOCUMENT ID: [id number] WANDER ELIZONDO MD at 0845 CC: [id number] DICTATION DATE: 12/17/19 1515 FINANCIAL SERVICES ASSISTANT: 12/17/19 2206 REG [facility] [address] [place] [id number]
--- NOTE | 2019-12-18 09:51 | NUR ---
PT ASKING TO SPEAK WITH FLOORPERSON AND SATTES SHE "FORGOT TO ASK HER SOMETHING". ASKED PT WHAT IT WAS. AND PT JUST SAID "IT'S SOMETHING I NEED TO TALK TO HER ABOUT." I STATED I WOULD GET AHOLD OF HER. PT VERBALIZED UNDERSTANDING. CALLED AND SPOKE WITH NEYDA CAMARA FLOORPERSON AND SHE STATES SHE "JUST SAW PT BUT I WILL COME BACK UP AND SEE HER." I VERBALIZED UNDERSTNADING AND STATED THIS TO PT. AND SHE VERBALIZED UNDERSTANDING.
[2019-12-18 10:46] VITALS: BP 156/74
--- NOTE | 2019-12-18 12:41 | NUR ---
SPOKE WITH DR. ELIZONDO AND HE STATES HE WILL NOT GIVE PT DILAUDID OR PHENEGRAN. HE STATES PT PATIENT INSURANCE CLERK HAVE THE ZOFRAN AND MORPHINE THAT ARE ORDERED. I VERBALZIED UNDERSTANDING.
[2019-12-18 13:56] VITALS: Ht 154.9 cm; Wt 70.3 kg
--- NOTE | 2019-12-18 16:26 | NUR ---
PT SENIOR POWER PLANT OPERATOR LIGHT. CAR HOP ANSWERED LIGHT IMMEDIATYLY. PT HACKING COUGHING. CAR HOP RAISED PT'S HOB UP TO 50 DEGREES AND TOLD PT TO TAKE A DRINK OF HER JUICE. PT THEN STATED TO CAR HOP SHE COULDN'T CATCH HER BREATH HE STATED TO PT TO TAKE DEEP BREATHS AND TURNED O2 UP A LITTLE BIT. PT VERBALIZED UNDERSTANDING. PT SENIOR POWER PLANT OPERATOR LIGHT. SOON LIGHT WENT ON I WAS WALKING INTO ROOM PT ALREADY WAS ALREADY ON THE PHONE WITH HER STATING "I'M CHOKING TO AND NO ONE HAS CAME IN HERE TO HELP ME. EXCEPT JUST NOW." PT'S DAUGHTER ON THE PHONE STATED TO HER TO "HAVE DORCAS(THIS NURSE) CALL DOCTOR AND GET PRN BREATHING TREATMENTS ORDERED." PT GOT OFF PHONE WITH DAUGHTER AND STATED SHE WANTS A BREATHING TREATMENT. I STATED I WILL PAGED DR. ELIZONDO. PAGED.
--- NOTE | 2019-12-18 16:35 | NUR ---
CAME TO ROOM AND PT WAS TRYING TO COUGH UP STATING SHE FELT SHE COULDN'T BREATH AND PHLEGM WAS STUCK IN THROAT. I CALMED PT DOWN SHE SEEMS ANXIOUS. TOOK PULSE OX AND 02 SATS WERE 99% WITH HEART RATE OF 86. PT STARTED BREATHING BETTER AND COUGHING RELAXED. ADVISED WE WOULD CONTACT PHYSICIAN FOR POSSIBLE MUCINEX TO LOOSEN PHLEGM. PT GAVE VERBAL ACKNOWLDEGEMENT.
--- NOTE | 2019-12-18 16:40 | NUR ---
ALEJO RN NURSE POST GRADUATE INTERNSHIP TO SPEAK WITH PT. DR. ELIZONDO CALLED BACK AND STATED TO ORDER MUCINEX BIDP AND ALBUTERAL PRN. I VERBALIZED UNDERSTANDING.
--- NOTE | 2019-12-18 17:30 | NUR ---
BAEZA CATH DC'D PER ORDER. TUBING INTACT. PT TOLERATED WELL. STATED TO PT TO USE CALL LIGHT WHEN SHE NEEDS TO USE THE BATHROOM AND WE WILL HELP HER TO THE BSC. PT VERBALIZED UNDERSTANDING. BED ALARM TURNED ON.
--- NOTE | 2019-12-18 18:18 | NUR ---
PT LYING IN BED. EYES CLOSED. CHEST RISING AND FALLING. BED LOW. CL IN REACH. WILL CONTINUE TO MONITOR.
--- NOTE | 2019-12-18 19:00 | NUR ---
MIN. ASSIST TO BSC. PT URINATED 10ML BLOODY URINE. WILL CONTINUE TO MONITOR.
--- NOTE | 2019-12-18 19:52 | NUR ---
I have reviewed this patient and I concur with the Shift Assessment completed by the Licensed Practical Nurse today this shift.
[2019-12-18 20:00] VITALS: BP 148/59
--- NOTE | 2019-12-18 20:31 | NUR ---
AWAKE,ALERT.COMPLAINTS OF PAIN TO BACK.07/23 .NORCO 7.5 GIVEN PER ORDER. IV INFUSING TO RIGHT PORT WITHOUT REDNESS OR EDEMA NOTED. DRESSIG TO LEFT NEPROTUBE SITE INTACT WITHOUT DRAINAGE NOTED. NEPHRO TUBE DRAINING TO BAEZA BG WITH BLOODY DRAINAGE NOTED. CL IN REACH
[2019-12-19] VITALS: BP 127/55
--- NOTE | 2019-12-19 02:25 | NUR ---
I have reviewed this patient and I concur with the Shift Assessment completed by the Licensed Practical Nurse today this shift.
[2019-12-19 04:00] VITALS: BP 147/66
[2019-12-19 06:11] LABS: BASOPHILS 0 % (0-2); EOSINOPHILS 1.2 % (0-7); HEMATOCRIT 30.5 % (36.0-48.0); HEMOGLOBIN 9.6 g/dL (12-16); IMMATURE GRANULOCYTES 0.1 % (0-5); LYMPHOCYTES 10.8 % (15-50); MCH 31.8 pg (26.0-34.0); MCHC 31.5 g/dL (31.0-37.0); MEAN PLATELET VOLUME 9.7 fL (7.4-10.4); MONOCYTES 14.6 % (2-11); NEUTROPHILS 73.3 % (40-80); RBC 3.02 10x6/uL (4.00-5.40); RDW 14.3 % (11.5-14.5); WBC 6.8 10x3/uL (4.8-10.8)
[2019-12-19 06:19] LABS: PLATELET COUNT 89 10x3/uL (130-400)
[2019-12-19 06:42] LABS: ALBUMIN 2.1 g/dL (3.4-5.0); ALKALINE PHOSPHATASE 40 U/L (30-120); BILIRUBIN - TOTAL 0.28 mg/dL (0.2-1.3); CALC OSMOLALITY 285 mosm/kg (275-300); CARBON DIOXIDE 25.6 mmol/L (21.0-32.0); CHLORIDE - SERUM 110 mmol/L (98-107); GLUCOSE 112 mg/dL (74-106); POTASSIUM - SERUM 3.8 mmol/L (3.5-5.1); PROTEIN - SERUM 4.9 g/dL (6.4-8.2); SODIUM 142 mmol/L (136-145); UREA NITROGEN 18 mg/dL (7-18)
[2019-12-19 06:43] LABS: ALT (SGPT) 22 U/L (10-68); CREATININE - SERUM 0.8 mg/dL (0.6-1.3); eGFR NON AFRICAN AMERICAN 75 mL/min (90-120)
[2019-12-19 07:06] LABS: PLATELET ESTIMATE DECREASED
--- NOTE | 2019-12-19 08:33 | NUR ---
PT RESTING, EYES CLOSED. RR EVEN AND UNLABORED. NO DISTREESS NOTED. CALL LIGHT WITHIN REACH. BED IN LOWEST POSITION. BED RAILS UP X2. WILL CONTINUE TO MONTIOR.
[2019-12-19 09:07] VITALS: BP 174/87
[2019-12-19] MEDS ORDERED: NORCO-7.51 TAB PO (15:00)
--- NOTE | 2019-12-19 15:00 | NUR ---
DR. ELIZONDO AT BEDSIDE. NEPHROSTOMY REMOVED. SITE DRESSED WITH 4X4, ABD PAD, AND SURGICAL TAPE VIA DR. Randall ORDERS. PT TOLERATED WELL 1545- FAMILY AT BEDSIDE. FAMILY ABLE TO DEMONSTRATE PROPER WOUND CARE AND DRESSING CHANGE. D/C INSTRUCTIONS REVIEWED WITH FAMILY AND PATIENT. ALL VERBALIZED AGREEMENT AND NO FURTHER QUESTIONS AT THIS TIME. PORT ACCESS D/C WITH TIP OF NEEDLE INTACT. DRESSING PLACED OVER SITE, CDI. PT LEFT WITH ALL BELONGINGS VIA WHEELCHAIR. DAUGHTER STATES SHE WAS DRIVING PATIENT HOME.
== END 2019-12-19 17:15 | disposition home or self-care (01) | DRG 660 ==
LOC: D.OPS 07:10 → D.PAN 07:30 → D.OPS 09:00 → D.M2 15:10 → D.OPS 15:11 → D.M2 12-19 17:15
PROVIDERS: Family Medicine; Radiology Diagnostic Radiology; ADMIT Urology; ATTEND Urology
PROC: 0T9130Z Drainage of Left Kidney with Drainage Device, Percutaneous Approach (ICD-10-PCS; 2019-12-17)
PROC: 0TC13ZZ Extirpation of Matter from Left Kidney, Percutaneous Approach (ICD-10-PCS; principal; 2019-12-17 08:30)
DX: N20.0 Calculus of kidney (principal); N39.0 Urinary tract infection, site not specified

== ENCOUNTER → 2020-01-06 17:33 | Outpatient (CLI) | payer MEDICARE ==
[2019-12-18 13:56] VITALS: BMI 29.3
[~2020-01-06 17:33] MED LIST changes: +BENTYL10 MG PO; +GAVILAX510 GM PO; +NORCO-7.51 TAB PO
== END | disposition home or self-care (01) ==
LOC: D.LABREF 17:33
PROVIDERS: ATTEND Urology
DX: N39.0 Urinary tract infection, site not specified (principal)

== ENCOUNTER 2020-01-23 11:03 | Emergency (ER) | payer MEDICARE ==
[2020-01-23 11:07] VITALS: Ht 154.9 cm
[2020-01-23 11:41] LABS: BASOPHILS 0.2 % (0-2); EOSINOPHILS 1.2 % (0-7); HEMATOCRIT 44.1 % (36.0-48.0); HEMOGLOBIN 13.6 g/dL (12-16); IMMATURE GRANULOCYTES 0.2 % (0-5); LYMPHOCYTES 17.9 % (15-50); MCH 31.2 pg (26.0-34.0); MCHC 30.8 g/dL (31.0-37.0); MCV 101.1 fL (80.0-100.0); MEAN PLATELET VOLUME 10.6 fL (7.4-10.4); MONOCYTES 6.8 % (2-11); NEUTROPHILS 73.7 % (40-80); RBC 4.36 10x6/uL (4.00-5.40); RDW 15.1 % (11.5-14.5); WBC 4.9 10x3/uL (4.8-10.8)
[2020-01-23 11:42] LABS: PLATELET COUNT 180 10x3/uL (130-400)
[2020-01-23 11:42] LABS: BILIRUBIN NEGATIVE (NEGATIVE); GLUCOSE NEGATIVE (NEGATIVE); KETONE SMALL mg/dL (NEGATIVE); NITRITE NEGATIVE (NEGATIVE); SPECIFIC GRAVITY 1.015 (1.005-1.020); UROBILINOGEN NORMAL (NORMAL)
[2020-01-23 11:53] LABS: CALCIUM 8.4 mg/dL (8.5-10.1); CARBON DIOXIDE 25.3 mmol/L (21.0-32.0); CREATININE - SERUM 1.1 mg/dL (0.6-1.3); POTASSIUM - SERUM 3.3 mmol/L (3.5-5.1)
[2020-01-23 11:59] LABS: ALBUMIN 3.5 g/dL (3.4-5.0); BILIRUBIN - TOTAL 0.31 mg/dL (0.2-1.3)
[2020-01-23] MEDS ORDERED: PHENERGAN25 M1 PO (14:33)
[2020-01-23 17:00] VITALS: BP 115/68
== END 2020-01-23 17:01 | disposition home or self-care (01) ==
LOC: D.ER 11:03
PROVIDERS: Emergency Medicine
DX: K31.84 Gastroparesis (principal); R11.2 Nausea with vomiting, unspecified

== ENCOUNTER 2020-02-04 16:22 | Emergency (ER) | payer MEDICARE ==
[~2020-02-04] VITALS: Ht 154.9 cm; Wt 66.4 kg
[2020-02-04 16:26] VITALS: Ht 154.9 cm; Wt 66.4 kg
[2020-02-04 17:08] LABS: BASOPHILS 0.2 % (0-2); EOSINOPHILS 0.7 % (0-7); HEMATOCRIT 41.3 % (36.0-48.0); HEMOGLOBIN 13.1 g/dL (12-16); IMMATURE GRANULOCYTES 0.2 % (0-5); LYMPHOCYTES 24.9 % (15-50); MCH 31.3 pg (26.0-34.0); MCHC 31.7 g/dL (31.0-37.0); MCV 98.6 fL (80.0-100.0); MEAN PLATELET VOLUME 10.7 fL (7.4-10.4); MONOCYTES 10.4 % (2-11); NEUTROPHILS 63.6 % (40-80); PLATELET COUNT 148 10x3/uL (130-400); RBC 4.19 10x6/uL (4.00-5.40); WBC 4.1 10x3/uL (4.8-10.8)
[2020-02-04 17:18] LABS: ANION GAP 14.1 mmol/L (8-16); CALCIUM 8.4 mg/dL (8.5-10.1); CARBON DIOXIDE 25.9 mmol/L (21.0-32.0); CREATININE - SERUM 1.1 mg/dL (0.6-1.3)
[2020-02-04 17:23] LABS: ALBUMIN 3.4 g/dL (3.4-5.0); BILIRUBIN - TOTAL 0.39 mg/dL (0.2-1.3); PROTEIN - SERUM 6.7 g/dL (6.4-8.2)
[2020-02-04] MEDS ORDERED: ZOFRAN8 MG PO (19:11)
[2020-02-04 19:39] LABS: BILIRUBIN NEGATIVE (NEGATIVE); GLUCOSE NEGATIVE (NEGATIVE); KETONE NEGATIVE (NEGATIVE); NITRITE NEGATIVE (NEGATIVE); UROBILINOGEN NORMAL (NORMAL)
[2020-02-04 19:40] LABS: BACTERIA FEW /hpf (NEGATIVE); EPITHELIAL CELLS 0-5 /hpf (0-5); RED CELLS - URINE 0-5 /hpf (0-5)
[2020-02-04] MEDS ORDERED: MACROBID100 MG PO (19:46)
[2020-02-04 20:03] VITALS: BP 132/64
== END 2020-02-04 20:03 | disposition home or self-care (01) ==
LOC: D.ER 16:22
PROVIDERS: Family Medicine
DX: K31.84 Gastroparesis (principal); N39.0 Urinary tract infection, site not specified

== ENCOUNTER 2020-03-01 18:18 | Emergency (ER) | payer MEDICARE ==
[~2020-03-01] VITALS: Ht 154.9 cm; Wt 63.6 kg
[~2020-03-01 18:18] MED LIST changes: +MACROBID100 MG PO; +ZOFRAN8 MG PO
[2020-03-01 18:30] VITALS: Ht 154.9 cm; Wt 63.6 kg
[2020-03-01 20:05] LABS: BASOPHILS 0 % (0-2); EOSINOPHILS 0.9 % (0-7); HEMATOCRIT 42.7 % (36.0-48.0); HEMOGLOBIN 13.9 g/dL (12-16); IMMATURE GRANULOCYTES 0.2 % (0-5); LYMPHOCYTES 17.8 % (15-50); MCH 30.9 pg (26.0-34.0); MCHC 32.6 g/dL (31.0-37.0); MCV 94.9 fL (80.0-100.0); MEAN PLATELET VOLUME 10.4 fL (7.4-10.4); MONOCYTES 7.2 % (2-11); NEUTROPHILS 73.9 % (40-80); PLATELET COUNT 151 10x3/uL (130-400); RDW 14.4 % (11.5-14.5); WBC 5.8 10x3/uL (4.8-10.8)
[2020-03-01 20:23] LABS: CALC OSMOLALITY 273 mosm/kg (275-300); CARBON DIOXIDE 21.7 mmol/L (21.0-32.0); CHLORIDE - SERUM 103 mmol/L (98-107); CREATININE - SERUM 1.1 mg/dL (0.6-1.3); GLUCOSE 105 mg/dL (74-106); POTASSIUM - SERUM 3.8 mmol/L (3.5-5.1); SODIUM 136 mmol/L (136-145); UREA NITROGEN 17 mg/dL (7-18); eGFR NON AFRICAN AMERICAN 52 mL/min (90-120)
[2020-03-01 20:38] LABS: ALBUMIN 3.5 g/dL (3.4-5.0); ALKALINE PHOSPHATASE 69 U/L (30-120); ALT (SGPT) 32 U/L (10-68); LIPASE 102 U/L (73-393); PRO BNP 208 pg/mL (0-125); PROTEIN - SERUM 7.2 g/dL (6.4-8.2)
[2020-03-01 20:42] LABS: TROPONIN-I < 0.017 ng/mL (0.000-0.060)
[2020-03-01 22:51] VITALS: BP 178/83
[2020-03-02] MEDS ORDERED: LOMOTIL 2.5-0.1 EAC1 PO (21:09)
== END 2020-03-01 22:51 | disposition home or self-care (01) ==
LOC: D.ER 18:18
PROVIDERS: Family Medicine
DX: R10.9 Unspecified abdominal pain (principal); G89.29 Other chronic pain

== ENCOUNTER 2020-03-02 18:07 | Emergency (ER) | payer MEDICARE ==
[~2020-03-02] VITALS: Ht 154.9 cm; Wt 63.6 kg
[2020-03-02 18:12] VITALS: Ht 154.9 cm; Wt 63.6 kg
[2020-03-02 18:50] LABS: BASOPHILS 0 % (0-2); EOSINOPHILS 0.7 % (0-7); HEMOGLOBIN 13.1 g/dL (12-16); IMMATURE GRANULOCYTES 0.2 % (0-5); LYMPHOCYTES 13.4 % (15-50); MCH 31.2 pg (26.0-34.0); NEUTROPHILS 78.7 % (40-80); PLATELET COUNT 127 10x3/uL (130-400); RDW 14.7 % (11.5-14.5); WBC 5.6 10x3/uL (4.8-10.8)
[2020-03-02 19:06] LABS: CALCIUM 8.8 mg/dL (8.5-10.1); CARBON DIOXIDE 21.2 mmol/L (21.0-32.0); CHLORIDE - SERUM 105 mmol/L (98-107); CREATININE - SERUM 1.2 mg/dL (0.6-1.3); GLUCOSE 91 mg/dL (74-106); POTASSIUM - SERUM 3.9 mmol/L (3.5-5.1); SODIUM 138 mmol/L (136-145); eGFR NON AFRICAN AMERICAN 47 mL/min (90-120)
[2020-03-02 19:14] LABS: ALBUMIN 3.3 g/dL (3.4-5.0); ALKALINE PHOSPHATASE 66 U/L (30-120); ALT (SGPT) 24 U/L (10-68); AMYLASE - SERUM 41 U/L (25-115); BILIRUBIN - TOTAL 0.69 mg/dL (0.2-1.3); CALC OSMOLALITY 275 mosm/kg (275-300); LIPASE 65 U/L (73-393); PROTEIN - SERUM 6.7 g/dL (6.4-8.2); TROPONIN-I < 0.017 ng/mL (0.000-0.060); UREA NITROGEN 12 mg/dL (7-18)
[2020-03-02 19:16] LABS: MCV 97.6 fL (80.0-100.0)
[2020-03-02 20:04] LABS: BILIRUBIN NEGATIVE (NEGATIVE); GLUCOSE NEGATIVE (NEGATIVE); KETONE MODERATE mg/dL (NEGATIVE); NITRITE NEGATIVE (NEGATIVE); UROBILINOGEN NORMAL (NORMAL)
[2020-03-02] MEDS ORDERED: LOMOTIL 2.5-0.1 EAC1 PO (21:09)
[2020-03-02 22:02] VITALS: BP 140/76
== END 2020-03-02 22:02 | disposition home or self-care (01) ==
LOC: D.ER 18:07
PROVIDERS: Family Medicine
DX: R19.7 Diarrhea, unspecified (principal); R11.0 Nausea; R10.9 Unspecified abdominal pain